=== PATIENT | male | born 1940 | race Caucasian/White ===

== ENCOUNTER 2019-09-26 10:37 | Inpatient (IN) | payer MEDICARE, MEDICAID ==
[2019-09-26] VITALS (7 sets, daily range): BP systolic 103–128; BP diastolic 49–65
[~2019-09-26] VITALS: Ht 170.2 cm; Wt 89.6 kg
[2019-09-26 10:51] LABS: BASE EXCESS ABG -2 mmol/L (-3-3); HCO3 ABG 21 mmol/L (21-28); PCO2 ABG 31 mmHg (35-46); PO2 ABG 51 mmHg (65-108); SAT O2 ABG 86 % (92-99)
[2019-09-26] MEDS ORDERED: IV NORMAL SALINE 1000ML BAG 1,000 ML IV ONE ×2 (11:00)
[2019-09-26] MEDS ORDERED: VANCOMYCIN PER PHARMACY MC ONE (11:00)
[2019-09-26] MEDS ORDERED: PIPERACILLIN/TAZOBACTAM 4.5 GM in IV NORMAL SALINE 100ML 100 ML IV ONE (11:00)
[2019-09-26] MEDS: STERILE WATER for RESP 1,000 ML BAG. INH PRN (11:05)
--- NOTE | 2019-09-26 11:07 | RAD ---
Examination: PORTABLE CHEST 1V History: soa / Comparison/Correlation: None Findings: Portable upright frontal view chest was obtained. Heart size normal. No pneumothorax. Pulmonary vasculature is borderline. Minimal blunting of the left costophrenic angle. Bony structures are unremarkable. Impression: No focal infiltrate. Minimal left pleural effusion may be present. Electronically signed by: Art Lee MD (09/26/2019 11:03 AM) [id number]
[2019-09-26 11:09] LABS: BASO % 0 % (0-3); EOS % 0 % (0-3); HEMATOCRIT 41.1 % (39.0-53.0); HEMOGLOBIN 14.2 g/dL (13.0-17.5); LYMPH # 0.6 x10^3/uL (1.0-4.8); LYMPH % 7 % (24-48); MEAN CORPUSCULAR HEMOGLOBIN 34 pg (25-35); MEAN CORPUSCULAR HGB CONC 35 g/dL (31-37); MEAN CORPUSCULAR VOLUME 98 fL (79-100); MONO # 0.6 x10^3/uL (0.0-1.1); MONO % 6 % (0-9); NEUT # 8.5 x10^3/uL (1.8-7.7); NEUT % 87 % (31-73); PLATELET COUNT 166 x10^3/uL (140-400); RED BLOOD COUNT 4.21 x10^6/uL (4.30-5.70); RED CELL DISTRIBUTION WIDTH 14.7 % (11.5-14.5); WHITE BLOOD COUNT 9.8 x10^3/uL (4.0-11.0)
[2019-09-26 11:14] LABS: CALCIUM 8.3 mg/dL (8.5-10.1); CREATININE 1.7 mg/dL (0.7-1.3); GFR 39.1; POTASSIUM 4.1 mmol/L (3.5-5.1)
[2019-09-26 11:15] LABS: BILIRUBIN,URINE NEGATIVE (NEG); CLARITY,URINE CLEAR; COLOR,URINE YELLOW; NITRITE,URINE NEGATIVE (NEG); PH,URINE 5.5 (<5.0-8.0); PROTEIN,URINE 100 mg/dL (NEG-TRACE); UROBILINOGEN,URINE 0.2 mg/dL (0.2 mg/dL)
[2019-09-26 11:19] LABS: FIO2 ABG 100
--- NOTE | 2019-09-26 11:28 | PHYS DOC ---
Past Medical History Past Medical History: Anxiety, Dementia, GERD, Hypertension, Other Additional Past Medical Histor: COVID-19, [place] Past Surgical History: No Surgical History Smoking Status: Unknown if ever smoked Alcohol Use: None General Adult EDM: Chief Complaint: SHORTNESS OF BREATH HPI: HPI: 79-year-old male past medical history significant for dementia, GERD, hypertension, [facility] with concern for hypoxia and decreased alertness. EMS reports patient was saturating in the low 80s on room air on arrival. Patient 82% upon ED arrival. Patient is awake, alert and responding to commands. Patient reports cough and nausea. Review of systems: Denies associated fever, chills, sore throat, dyspnea, chest pain, headache, neck stiffness, rash, leg swelling, abdominal pain, or diaphoresis. Heart Score: Risk Factors: Risk Factors: DM, Current or recent (<one month) smoker, HTN, HLP, family history of CAD, obesity. Risk Scores: Score 0 - 3: 2.5% MACE over next 6 weeks - Discharge Home Score 4 - 6: 20.3% MACE over next 6 weeks - Admit for Clinical Observation Score 7 - 10: 72.7% MACE over next 6 weeks - Early Invasive Strategies Current Medications: Current Medications Medications (Trade) Dose Ordered Sig/Coleman Start Time Stop Time Status Last Admin Dose Admin Piperacillin Sod/ Tazobactam Sod 4.5 gm/Sodium Chloride 100 ml @ 200 mls/hr 1X ONCE 09/26/19 11:00 09/26/19 11:29 09/26/19 11:03 200 MLS/HR Sodium Chloride 1,000 ml @ 1,000 mls/hr 1X ONCE 09/26/19 11:00 09/26/19 11:59 09/26/19 11:03 1,000 MLS/HR Sterile Water (WATER for RESP) 1,000 ml CONT PRN 09/26/19 11:00 Vancomycin HCl (Vanco Per Pharmacy) 1 each 1X ONCE 09/26/19 11:00 09/26/19 11:01 UNV Allergies: Allergies: Allergies Coded Allergies Type Severity Reaction Last Updated Verified No Known Drug Allergies 09/26/19 No Physical Exam: PE: Constitutional: no acute distress, non-toxic appearance. [] HENT: Normocephalic, atraumatic, bilateral external ears normal, oropharynx dry, no oral exudates, nose normal. [] Eyes: EOMI, conjunctiva normal, no discharge. [] Neck: Normal range of motion, no tenderness, supple, no stridor. [] Cardiovascular:Heart rate regular rhythm, no murmur [] Lungs & Thorax: right sided diffuse rales, Abdomen: Bowel sounds normal, soft, no tenderness, no masses, no pulsatile masses. [] Skin: Warm, dry, no erythema, no rash. [] Back: No tenderness, no CVA tenderness. [] Extremities: No tenderness, no cyanosis, no clubbing, ROM intact, no edema. [] Neurologic: Alert and oriented X 3, normal motor function, normal sensory function, no focal deficits noted. [] Psychologic: Affect normal, judgement normal, mood normal. [] Current Patient Data: Labs: Laboratory Tests Test 09/26/19 10:42 09/26/19 10:49 White Blood Count 9.8 x10^3/uL (4.0-11.0) Red Blood Count 4.21 x10^6/uL (4.30-5.70) L Hemoglobin 14.2 g/dL (13.0-17.5) Hematocrit 41.1 % (39.0-53.0) Mean Corpuscular Volume 98 fL (79-100) Mean Corpuscular Hemoglobin 34 pg (25-35) Mean Corpuscular Hemoglobin Concent 35 g/dL (31-37) Red Cell Distribution Width 14.7 % (11.5-14.5) H Platelet Count 166 x10^3/uL (140-400) Neutrophils (%) (Auto) 87 % (31-73) H Lymphocytes (%) (Auto) 7 % (24-48) L Monocytes (%) (Auto) 6 % (0-9) Eosinophils (%) (Auto) 0 % (0-3) Basophils (%) (Auto) 0 % (0-3) Neutrophils # (Auto) 8.5 x10^3/uL (1.8-7.7) H Lymphocytes # (Auto) 0.6 x10^3/uL (1.0-4.8) L Monocytes # (Auto) 0.6 x10^3/uL (0.0-1.1) Eosinophils # (Auto) 0.0 x10^3/uL (0.0-0.7) Basophils # (Auto) 0.0 x10^3/uL (0.0-0.2) Platelet Estimate Pending Sodium Level 143 mmol/L (136-145) Potassium Level 4.1 mmol/L (3.5-5.1) Chloride Level 107 mmol/L (98-107) Carbon Dioxide Level 24 mmol/L (21-32) Anion Gap 12 (6-14) Blood Urea Nitrogen 47 mg/dL (8-26) H Creatinine 1.7 mg/dL (0.7-1.3) H Estimated GFR (Cockcroft-Gault) 39.1 BUN/Creatinine Ratio 28 (6-20) H Glucose Level 152 mg/dL (70-99) H Lactic Acid Level 2.1 mmol/L (0.4-2.0) H Calcium Level 8.3 mg/dL (8.5-10.1) L Magnesium Level Pending Total Bilirubin Pending Aspartate Amino Transferase (AST) Pending Alanine Aminotransferase (ALT) Pending Alkaline Phosphatase Pending Creatine Kinase Pending Troponin I Quantitative 0.037 ng/mL (0.000-0.055) Total Protein Pending Albumin Pending Albumin/Globulin Ratio Pending O2 Saturation 86 % (92-99) L Arterial Blood pH 7.44 (7.35-7.45) Arterial Blood pCO2 at Patient Temp 31 mmHg (35-46) L Arterial Blood pO2 at Patient Temp 51 mmHg (65-108) L Arterial Blood HCO3 21 mmol/L (21-28) Arterial Blood Base Excess -2 mmol/L (-3-3) FiO2 100 Laboratory Tests 09/26/19 10:42 Laboratory Tests 09/26/19 10:42 Vital Signs: Vital Signs Date Time Temp Pulse Resp B/P (MAP) Pulse Ox O2 Delivery O2 Flow Rate FiO2 09/26/19 10:40 100.5 108 30 109/77 (88) 86 NonRebreather Mask 15.0 100.5 EKG: EKG: Sinus rhythm at 96 bpm, no axis deviation, normal intervals, T wave inversion lead III, no ST elevations or ST depressions Radiology/Procedures: Radiology/Procedures: IMAGING REPORT Signed PATIENT: BUZZ JANSEN ACCOUNT: [id number] : 1940 LOCATION: ER AGE: 79 SEX: M EXAM STATUS: REG ER ORD. PHYSICIAN: TIM PAULINO DO REASON: soa PROCEDURE: PORTABLE CHEST 1V Examination: PORTABLE CHEST 1V History: soa / Comparison/Correlation: None Findings: Portable upright frontal view chest was obtained. Heart size normal. No pneumothorax. Pulmonary vasculature is borderline. Minimal blunting of the left costophrenic angle. Bony structures are unremarkable. Impression: No focal infiltrate. Minimal left pleural effusion may be present. Electronically signed by: Art Jennings MD (09/26/2019 11:03 AM) [id number] DICTATED and SIGNED BY: ART JENNINGS MD DATE: 09/26/19 1103 IMAGING REPORT Signed PATIENT: BUZZ JANSEN ACCOUNT: [id number] : 1940 LOCATION: ER AGE: 79 SEX: M EXAM STATUS: REG ER ORD. PHYSICIAN: TIM PAULINO DO REASON: hypoxia, cough PROCEDURE: CT ANGIOGRAPHY CHEST Examination: CT ANGIOGRAPHY CHEST History: Reason: hypoxia, cough / Spl. Instructions: INJ 90ML OMNI 350 WILL HYDRATE PER RAD / History: Comparison/Correlation: 09/26/2019 Portable Chest X-ray Exam Findings: Axial images of the chest were obtained following IV contrast according to pulmonary arteriography protocol. Dense consolidation is present at the posterior right lung base. Diffuse interstitial thickening and groundglass infiltrates of the lower lobes, lingula, along the superior aspect of the minor fissure and involving the posterior aspect of the upper lobes noted. Diffuse emphysematous involvement of the lung brandt is noted. Bronchial wall thickening involving the right lower lung field region which may represent bronchitis is noted diffusely. An large left lower paratracheal lymph node measuring up to 1.1 cm. Nonenlarged superior mediastinal lymph nodes also are seen. Enlarged right hilar lymph node measures up to 1.2 cm in short axis diameter. Mildly enlarged subcarinal lymph nodes are also present. Pulmonary arterial vasculature is normal with no thromboembolic disease although evaluation is limited in the right lower lung field region of consolidation. Small hiatal hernia is present. Calculus the gallbladder neck measuring up to 1 cm diameter is present. No biliary dilatation. Bilateral upper pole renal cysts are present. No findings to suggest need for follow up identified. Cysts involve the liver primarily within the left hepatic lobe without suspicious features. Visualized aorta is unremarkable. Bony structures unremarkable for the patient's age. Impression: Right posterior lower lung field consolidation. Extensive interstitial, groundglass infiltrates brandt. Enlarged right mediastinal and right hilar lymph nodes. Correlate for underlying infectious process. Follow-up to resolution is recommended to exclude underlying neoplastic etiology. Calculus at the gallbladder neck. Small hiatal hernia. PQRS Compliance Statement: One or more of the following individualized dose reduction techniques were utilized for this examination: 1. Automated exposure control 2. Adjustment of the mA and/or kV according to patient size 3. Use of iterative reconstruction technique Electronically signed by: Art Jennings MD (09/26/2019 12:33 PM) [id number] DICTATED and SIGNED BY: ART JENNINGS MD DATE: 09/26/19 1233 Impression: Concern for severe sepsis secondary to hospital-acquired pneumonia (right sided posterior infiltrate on CTA) in the setting of COVID-[address] Angio of the chest showed no central pulmonary emboli. Patient was placed on 100% high flow nasal cannula at 40L on arrival and is sleeping comfortably at time of admission (awakes easily w/normal mental status). Initial blood gas showed acute hypoxic respiratory failure with a PO2 of 50. Will need to be repeated, with low threshold for intubation. Will admit for further medical management. Patient agrees with this plan. Course & Med Decision Making: Course & Med Decision Making Pertinent Labs and Imaging studies reviewed. (See chart for details) [] Dragon Disclaimer: Dragon Disclaimer: This electronic medical record was generated, in whole or in part, using a voice recognition dictation system. Departure Departure Impression: Primary Impression: Severe sepsis Additional Impressions: Acute respiratory failure with hypoxia Renal insufficiency HCAP (healthcare-associated pneumonia) COVID-19 Disposition: ADMITTED INPATIENT Admitting Physician: KOKO (Dr. Freeman) Condition: CRITICAL Referrals: MIN ROJAS MD (PCP) Justicifation of Admission Dx: Justifications for Admission: Justification of Admission Dx: Yes Aspiration Pneumonia: Hypoxemia TIM PAULINO DO Sep 26, 2019 11:28
[2019-09-26 11:29] LABS: ALBUMIN 2.8 g/dL (3.4-5.0); ALBUMIN/GLOBULIN RATIO 0.7 (1.0-1.7); MAGNESIUM 2.3 mg/dL (1.8-2.4); TOTAL BILIRUBIN 0.6 mg/dL (0.2-1.0); TOTAL PROTEIN 6.8 g/dL (6.4-8.2)
[2019-09-26] MEDS ORDERED: VANCOMYCIN 2 GM in IV NORMAL SALINE 500ML BAG 500 ML IV ONE (11:30)
[2019-09-26 11:40] LABS: BACTERIA,URINE FEW /HPF (0-FEW)
[2019-09-26 11:40] LABS: PROTHROMBIN TIME PATIENT 13.3 SEC (11.7-14.0)
[2019-09-26 11:41] LABS: AMORPHOUS SEDIMENT,UR PRESENT /HPF; GRANULAR CASTS,URINE FEW /HPF; HYALINE CASTS, URINE MODERATE /HPF; SQUAMOUS EPITHELIAL CELL,UR FEW /LPF
[2019-09-26] MEDS ORDERED: IOHEXOL 350 MG/ML 100 ML VIAL. IV ONE (11:45)
[2019-09-26] MEDS ORDERED: CONTRAST GIVEN. MC PRN (11:45)
--- NOTE | 2019-09-26 12:36 | RAD ---
Examination: CT ANGIOGRAPHY CHEST History: Reason: hypoxia, cough / Spl. Instructions: INJ 90ML OMNI 350 WILL HYDRATE PER RAD / History: Comparison/Correlation: 09/26/2019 Portable Chest X-ray Exam Findings: Axial images of the chest were obtained following IV contrast according to pulmonary arteriography protocol. Dense consolidation is present at the posterior right lung base. Diffuse interstitial thickening and groundglass infiltrates of the lower lobes, lingula, along the superior aspect of the minor fissure and involving the posterior aspect of the upper lobes noted. Diffuse emphysematous involvement of the lung brandt is noted. Bronchial wall thickening involving the right lower lung field region which may represent bronchitis is noted diffusely. An large left lower paratracheal lymph node measuring up to 1.1 cm. Nonenlarged superior mediastinal lymph nodes also are seen. Enlarged right hilar lymph node measures up to 1.2 cm in short axis diameter. Mildly enlarged subcarinal lymph nodes are also present. Pulmonary arterial vasculature is normal with no thromboembolic disease although evaluation is limited in the right lower lung field region of consolidation. Small hiatal hernia is present. Calculus the gallbladder neck measuring up to 1 cm diameter is present. No biliary dilatation. Bilateral upper pole renal cysts are present. No findings to suggest need for follow up identified. Cysts involve the liver primarily within the left hepatic lobe without suspicious features. Visualized aorta is unremarkable. Bony structures unremarkable for the patient's age. Impression: Right posterior lower lung field consolidation. Extensive interstitial, groundglass infiltrates brandt. Enlarged right mediastinal and right hilar lymph nodes. Correlate for underlying infectious process. Follow-up to resolution is recommended to exclude underlying neoplastic etiology. Calculus at the gallbladder neck. Small hiatal hernia. PQRS Compliance Statement: One or more of the following individualized dose reduction techniques were utilized for this examination: 1. Automated exposure control 2. Adjustment of the mA and/or kV according to patient size 3. Use of iterative reconstruction technique Electronically signed by: Art Lee MD (09/26/2019 12:33 PM) [id number]
[2019-09-26 13:09] LABS: % BANDS 11 % (0-9); % LYMPHS 7 % (24-48); % MONOS 1 % (0-10); % SEGS 81 % (35-66); PLT ESTIMATE ADEQUATE (ADEQUATE)
[2019-09-26] MEDS: ENOXAPARIN 40 MG/0.4 ML SYRINGE. SQ SCH (15:00)
[2019-09-26] MEDS ORDERED: ACET500C4 PO (15:54)
[2019-09-26] MEDS ORDERED: IBUP-1027 PO (15:54)
--- NOTE | 2019-09-26 15:54 | EKG ---
[facility] [address] [place] [address] Test Date: 2019-09-26 Test Time: 10:44:00 Pat Name: BUZZ JANSEN Department: Room: Gender: M Hide Salter: BERTHA : 1940 Requested By: TIM PAULINO Order Number: [id number] Reading MD: Measurements Intervals [place] Rate: 96 P: -2 RI: 156 QRS: 22 QRSD: 94 T: 16 QT: 340 QTc: 430 Interpretive Statements SINUS RHYTHM NO SPECIFIC ECG ABNORMALITIES RI6.01 No previous ECG available for comparison
[2019-09-26] MEDS ORDERED: POLY15DR27 EACHEYE (15:55)
--- NOTE | 2019-09-26 17:28 | PDOC1 ---
History and Physical Date of Admission Date of Admission DATE: 09/26/19 TIME: 17:25 Source Source: Chart review, Patient History of Present Illness History of Present Illness Mr. Raines, is a 79-year-old male past medical history significant for dementia, GERD, hypertension, presents to the ED from [facility]. He had been known COVID unit positive, and was brought to the ER when he was lethargic and less responsive. THen found to be hypoxia and is respiratory distress. EMS reports patient was saturating in the low 80s on room air on arrival. Patient 82% upon ED arrival. Patient is awake, alert and responding to commands. Patient reports cough and nausea. Past Medical History Cardiovascular: HTN CENTRAL NERVOUS SYSTEM: Dementia GI: GERD Renal/: No pertinent hx Endocrine: No pertinent hx Dermatology: No pertinent hx Past Surgical History Past Surgical History: No pertinent history Family History Family History: Alzheimer's Disease Social History Smoke: No ALCOHOL: none Drugs: None Current Problem List Problem List Problems Medical Problems: (1) Acute respiratory failure with hypoxia Status: Acute (2) COVID-19 Status: Acute (3) HCAP (healthcare-associated pneumonia) Status: Acute (4) Renal insufficiency Status: Acute (5) Severe sepsis Status: Acute Current Medications Current Medications Current Medications Piperacillin Sod/ Tazobactam Sod 4.5 gm/Sodium Chloride 100 ml @ 200 mls/hr 1X ONCE IV Last administered on 09/26/19at 11:03; Start 09/26/19 at 11:00; Stop 09/26/19 at 11:29; Status DC Vancomycin HCl (Vanco Per Pharmacy) 1 each 1X ONCE MC ; Start 09/26/19 at 11:00; Stop 09/26/19 at 15:59; Status DC Sodium Chloride 1,000 ml @ 1,000 mls/hr 1X ONCE IV Last administered on 09/26/19at 11:02; Start 09/26/19 at 11:00; Stop 09/26/19 at 11:59; Status DC Sodium Chloride 1,000 ml @ 1,000 mls/hr 1X ONCE IV Last administered on 09/26/19at 11:03; Start 09/26/19 at 11:00; Stop 09/26/19 at 11:59; Status DC Sterile Water (WATER for RESP) 1,000 ml CONT PRN INH VIA VAPOTHERM DEVICE Last administered on 09/26/19at 11:05; Start 09/26/19 at 11:00 Vancomycin HCl 2 gm/Sodium Chloride 500 ml @ 250 mls/hr 1X ONCE IV Last administered on 09/26/19at 11:47; Start 09/26/19 at 11:30; Stop 09/26/19 at 13:29; Status DC Iohexol (Omnipaque 350 Mg/ml) 90 ml 1X ONCE IV Last administered on 09/26/19at 11:45; Start 09/26/19 at 11:45; Stop 09/26/19 at 11:46; Status DC Info (CONTRAST GIVEN -- Rx MONITORING) 1 each PRN DAILY PRN MC SEE COMMENTS; Start 09/26/19 at 11:45; Stop 09/28/19 at 11:44 Enoxaparin Sodium (Lovenox Per Pharmacy Prophylaxis Dosing) 1 each PRN DAILY PRN MC SEE COMMENTS; Start 09/26/19 at 14:30 Enoxaparin Sodium (Lovenox 40mg Syringe) 40 mg BID SQ ; Start 09/26/19 at 15:00 Active Scripts Active Reported Artificial Tears (Polyvinyl Alcohol) 15 Ml Drops 2 Drop EACHEYE QID 20 Days Ibuprofen 400 Mg Tablet 400 Mg PO PRN Q6HRS PRN Tylophen (Acetaminophen) 500 Mg Capsule 500 Mg PO PRN Q6-8HRS Allergies Allergies: Coded Allergies: No Known Drug Allergies (Unverified , 09/26/19) ROS Review of System Denies associated fever, chills, sore throat, dyspnea, chest pain, headache, neck stiffness, rash, leg swelling, abdominal pain, or diaphoresis. General: YES: Fatigue, Malaise; No: Chills, Night Sweats, Appetite, Other PSYCHOLOGICAL ROS: No: Anxiety, Behavioral Disorder, Concentration difficultie, Decreased libido, Depression, Disorientation, Hallucinations, Hostility, Irritablity, Memory difficulties, Mood Swings, Obsessive thoughts, Physical abuse, Sexual abuse, Sleep disturbances, Suicidal ideation, Other Eyes: No Blurry vision, No Decreased vision, No Double vision, No Dry eyes, No Excessive tearing, No Eye Pain, No Itchy Eyes, No Loss of vision, No Photophobia, No Scotomata, No Uses contacts, No Uses glasses, No Other Respiratory: YES: Shortness of breath, Tachypnea; No: Cough, Hemoptysis, Orthopnea, Pleuritic Pain, SOB with excertion, Sputum Changes, Stridor, Wheezing, Other Cardiovascular: No Chest Pain, No Palpitations, No Orthopnea, No Paroxysmal Noc. Dyspnea, No Edema, No Lt Headedness, No Other Gastrointestinal: No Nausea, No Vomiting, No Abdominal Pain, No Diarrhea, No Constipation, No Melena, No Hematochezia, No Other Genitourinary: No Dysuria, No Frequency, No Incontinence, No Hematuria, No Retention, No Discharge, No Urgency, No Pain, No Flank Pain, No Other, No , No , No , No , No , No , No Musculoskeletal: No Gait Disturbance, No Joint Pain, No Joint Stiffness, No Joint Swelling, No Muscle Pain, No Muscular Weakness, No Pain In:, No Swelling In:, No Other Neurological: No Behavorial Changes, No Bowel/Bladder ControlChng, No Confusion , No Dizziness, No Gait Disturbance, No Headaches, No Impaired Coord/balance, No Memory Loss, No Numbness/Tingling, No Seizures, No Speech Problems, No Tremors, No Visual Changes, No Weakness, No Other Skin: No Dry Skin, No Eczema, No Hair Changes, No Lumps, No Mole Changes, No Mottling, No Nail Changes, No Pruritus, No Rash, No Skin Lesion Changes, No Other, No Acne Physical Exam General: Alert, Cooperative, No acute distress, Other (poorly oriented, ) Lungs: Other (rales, rhonchi, coarse, ) Heart: S1S2, RRR Abdomen: Normal bowel sounds, Soft Extremities: No cyanosis, No edema, Normal pulses Skin: No rashes, No breakdown Neuro: Normal speech, Sensation intact Psych/Mental Status: Mental status NL, Mood NL Vitals Vitals Vital Signs Date Time Temp Pulse Resp B/P (MAP) Pulse Ox O2 Delivery O2 Flow Rate FiO2 09/26/19 17:00 76 88 vapotherm 40.0 09/26/19 16:13 99.0 30 99.0 Labs Labs Laboratory Tests Test 09/26/19 10:42 09/26/19 10:49 09/26/19 11:05 09/26/19 14:35 White Blood Count 9.8 x10^3/uL (4.0-11.0) Red Blood Count 4.21 x10^6/uL (4.30-5.70) Hemoglobin 14.2 g/dL (13.0-17.5) Hematocrit 41.1 % (39.0-53.0) Mean Corpuscular Volume 98 fL (79-100) Mean Corpuscular Hemoglobin 34 pg (25-35) Mean Corpuscular Hemoglobin Concent 35 g/dL (31-37) Red Cell Distribution Width 14.7 % (11.5-14.5) Platelet Count 166 x10^3/uL (140-400) Neutrophils (%) (Auto) 87 % (31-73) Lymphocytes (%) (Auto) 7 % (24-48) Monocytes (%) (Auto) 6 % (0-9) Eosinophils (%) (Auto) 0 % (0-3) Basophils (%) (Auto) 0 % (0-3) Neutrophils # (Auto) 8.5 x10^3/uL (1.8-7.7) Lymphocytes # (Auto) 0.6 x10^3/uL (1.0-4.8) Monocytes # (Auto) 0.6 x10^3/uL (0.0-1.1) Eosinophils # (Auto) 0.0 x10^3/uL (0.0-0.7) Basophils # (Auto) 0.0 x10^3/uL (0.0-0.2) Segmented Neutrophils % 81 % (35-66) Band Neutrophils % 11 % (0-9) Lymphocytes % 7 % (24-48) Monocytes % 1 % (0-10) Platelet Estimate Adequate (ADEQUATE) Prothrombin Time 13.3 SEC (11.7-14.0) Prothromb Time International Ratio 1.1 (0.8-1.1) Activated Partial Thromboplast Time 30 SEC (24-38) Sodium Level 143 mmol/L (136-145) Potassium Level 4.1 mmol/L (3.5-5.1) Chloride Level 107 mmol/L (98-107) Carbon Dioxide Level 24 mmol/L (21-32) Anion Gap 12 (6-14) Blood Urea Nitrogen 47 mg/dL (8-26) Creatinine 1.7 mg/dL (0.7-1.3) Estimated GFR (Cockcroft-Gault) 39.1 BUN/Creatinine Ratio 28 (6-20) Glucose Level 152 mg/dL (70-99) Lactic Acid Level 2.1 mmol/L (0.4-2.0) 1.6 mmol/L (0.4-2.0) Calcium Level 8.3 mg/dL (8.5-10.1) Magnesium Level 2.3 mg/dL (1.8-2.4) Total Bilirubin 0.6 mg/dL (0.2-1.0) Aspartate Amino Transf (AST/SGOT) 92 U/L (15-37) Alanine Aminotransferase (ALT/SGPT) 45 U/L (16-63) Alkaline Phosphatase 49 U/L (46-116) Creatine Kinase 1286 U/L (39-308) Troponin I Quantitative 0.037 ng/mL (0.000-0.055) Total Protein 6.8 g/dL (6.4-8.2) Albumin 2.8 g/dL (3.4-5.0) Albumin/Globulin Ratio 0.7 (1.0-1.7) O2 Saturation 86 % (92-99) Arterial Blood pH 7.44 (7.35-7.45) Arterial Blood pCO2 at Patient Temp 31 mmHg (35-46) Arterial Blood pO2 at Patient Temp 51 mmHg (65-108) Arterial Blood HCO3 21 mmol/L (21-28) Arterial Blood Base Excess -2 mmol/L (-3-3) FiO2 100 Urine Collection Type Unknown Urine Color Yellow Urine Clarity Clear Urine pH 5.5 (<5.0-8.0) Urine Specific [place] 1.020 (1.000-1.030) Urine Protein 100 mg/dL (NEG-TRACE) Urine Glucose (UA) Negative mg/dL (NEG) Urine Ketones (Stick) Trace mg/dL (NEG) Urine Blood Moderate (NEG) Urine Nitrite Negative (NEG) Urine Bilirubin Negative (NEG) Urine Urobilinogen Dipstick 0.2 mg/dL (0.2 mg/dL) Urine Leukocyte Esterase Negative (NEG) Urine RBC 11-20 /HPF (0-2) Urine WBC 1-4 /HPF (0-4) Urine Squamous Epithelial Cells Few /LPF Urine Amorphous Sediment Present /HPF Urine Bacteria Few /HPF (0-FEW) Urine Hyaline Casts Moderate /HPF Urine Granular Casts Few /HPF Urine Mucus Mod /LPF Laboratory Tests Test 09/26/19 10:42 09/26/19 10:49 09/26/19 11:05 09/26/19 14:35 White Blood Count 9.8 x10^3/uL (4.0-11.0) Red Blood Count 4.21 x10^6/uL (4.30-5.70) Hemoglobin 14.2 g/dL (13.0-17.5) Hematocrit 41.1 % (39.0-53.0) Mean Corpuscular Volume 98 fL (79-100) Mean Corpuscular Hemoglobin 34 pg (25-35) Mean Corpuscular Hemoglobin Concent 35 g/dL (31-37) Red Cell Distribution Width 14.7 % (11.5-14.5) Platelet Count 166 x10^3/uL (140-400) Neutrophils (%) (Auto) 87 % (31-73) Lymphocytes (%) (Auto) 7 % (24-48) Monocytes (%) (Auto) 6 % (0-9) Eosinophils (%) (Auto) 0 % (0-3) Basophils (%) (Auto) 0 % (0-3) Neutrophils # (Auto) 8.5 x10^3/uL (1.8-7.7) Lymphocytes # (Auto) 0.6 x10^3/uL (1.0-4.8) Monocytes # (Auto) 0.6 x10^3/uL (0.0-1.1) Eosinophils # (Auto) 0.0 x10^3/uL (0.0-0.7) Basophils # (Auto) 0.0 x10^3/uL (0.0-0.2) Segmented Neutrophils % 81 % (35-66) Band Neutrophils % 11 % (0-9) Lymphocytes % 7 % (24-48) Monocytes % 1 % (0-10) Platelet Estimate Adequate (ADEQUATE) Prothrombin Time 13.3 SEC (11.7-14.0) Prothromb Time International Ratio 1.1 (0.8-1.1) Activated Partial Thromboplast Time 30 SEC (24-38) Sodium Level 143 mmol/L (136-145) Potassium Level 4.1 mmol/L (3.5-5.1) Chloride Level 107 mmol/L (98-107) Carbon Dioxide Level 24 mmol/L (21-32) Anion Gap 12 (6-14) Blood Urea Nitrogen 47 mg/dL (8-26) Creatinine 1.7 mg/dL (0.7-1.3) Estimated GFR (Cockcroft-Gault) 39.1 BUN/Creatinine Ratio 28 (6-20) Glucose Level 152 mg/dL (70-99) Lactic Acid Level 2.1 mmol/L (0.4-2.0) 1.6 mmol/L (0.4-2.0) Calcium Level 8.3 mg/dL (8.5-10.1) Magnesium Level 2.3 mg/dL (1.8-2.4) Total Bilirubin 0.6 mg/dL (0.2-1.0) Aspartate Amino Transf (AST/SGOT) 92 U/L (15-37) Alanine Aminotransferase (ALT/SGPT) 45 U/L (16-63) Alkaline Phosphatase 49 U/L (46-116) Creatine Kinase 1286 U/L (39-308) Troponin I Quantitative 0.037 ng/mL (0.000-0.055) Total Protein 6.8 g/dL (6.4-8.2) Albumin 2.8 g/dL (3.4-5.0) Albumin/Globulin Ratio 0.7 (1.0-1.7) O2 Saturation 86 % (92-99) Arterial Blood pH 7.44 (7.35-7.45) Arterial Blood pCO2 at Patient Temp 31 mmHg (35-46) Arterial Blood pO2 at Patient Temp 51 mmHg (65-108) Arterial Blood HCO3 21 mmol/L (21-28) Arterial Blood Base Excess -2 mmol/L (-3-3) FiO2 100 Urine Collection Type Unknown Urine Color Yellow Urine Clarity Clear Urine pH 5.5 (<5.0-8.0) Urine Specific [place] 1.020 (1.000-1.030) Urine Protein 100 mg/dL (NEG-TRACE) Urine Glucose (UA) Negative mg/dL (NEG) Urine Ketones (Stick) Trace mg/dL (NEG) Urine Blood Moderate (NEG) Urine Nitrite Negative (NEG) Urine Bilirubin Negative (NEG) Urine Urobilinogen Dipstick 0.2 mg/dL (0.2 mg/dL) Urine Leukocyte Esterase Negative (NEG) Urine RBC 11-20 /HPF (0-2) Urine WBC 1-4 /HPF (0-4) Urine Squamous Epithelial Cells Few /LPF Urine Amorphous Sediment Present /HPF Urine Bacteria Few /HPF (0-FEW) Urine Hyaline Casts Moderate /HPF Urine Granular Casts Few /HPF Urine Mucus Mod /LPF VTE Prophylaxis Ordered VTE Prophylaxis Devices: No VTE Pharmacological Prophylaxi: Yes Assessment/Plan Assessment/Plan COVID -19 pos acute hypoxic respiratory faiulre severe sepsis pneumoniits, broad antibiotics, pneumonia and sepsis, acute renal failure, vasomotor, and acute rhabdomyolysis, admit demenita, admit to ICU, 38 minutes Justicifation of Admission Dx: Justifications for Admission: Justification of Admission Dx: Yes Aspiration Pneumonia: Hypoxemia RYANNE SULLIVAN MD Sep 26, 2019 17:28
[2019-09-26] MEDS ORDERED: PIP/TAZO PER PHARMACY MC PRN (17:30)
[2019-09-26] MEDS: IV NORMAL SALINE 1000ML BAG 1,000 ML IV SCH (17:30)
[2019-09-26] MEDS: VANCOMYCIN PER PHARMACY MC PRN (17:34)
--- NOTE | 2019-09-26 17:36 | NUR ---
Pharmacy Vancomycin Dosing Note S:Consulted to monitor and dose vancomycin started 09/26/19. O:BUZZ JANSEN is a 79 year old M with HCAP. Height: 5 feet, 7 inches Weight: 89.3 kg [place] Body Weight: 66.10 Adjusted Body Weight: 75.38 Dosing Weight: Actual Other Antibiotics: zosyn 3.375 gm q6hrs LABS: Last BUN: 47 Last Creatinine: 1.7 Creatinine Clearance: 38 mL/min Last WBC: 9.8 Last Procalcitonin: -- Tmax (past 24 hours): 100.5 Microbiology: 09/25: BLOOD CX PENDING I/O: -- Drug Levels: Last dose given 09/26/19 at 1147 Vancomycin Dosing: Loading Dose: 2000 mg x1 Dosing Weight: Actual Target Trough: 15-20 A: Based on: patient's age, weight and renal function. P: 1. Begin Vancomycin 1250 mg IV q24h after initial vancomycin 2 gm loading dose. 2. Follow up Trough level on 09/28/19 at 1130 3. Pharmacy will continue to monitor, follow and adjust therapy as needed. OUMOU LYMNA RPH, 09/26/19 [id number]
[2019-09-26] MEDS: PIPERACILLIN/TAZOBACTAM 3.375 GM in IV NORMAL SALINE 50ML 50 ML IV SCH (18:00)
[2019-09-26] MEDS ORDERED: NON FORMULARY ITEM 1 EA in IV NORMAL SALINE 250ML 250 ML IV ONE (21:00)
[2019-09-26] MEDS: methylPREDNISolone SOD SUCC PF 40 MG/ML VIAL. IV SCH (21:50)
[2019-09-26] MEDS: BENZONATATE 100 MG CAPSULE. PO SCH (21:51)
[2019-09-27] VITALS (26 sets, daily range): BP systolic 85–114; BP diastolic 44–69
[2019-09-27] MEDS: PIPERACILLIN/TAZOBACTAM 3.375 GM in IV NORMAL SALINE 50ML 50 ML IV SCH ×4 (00:29→17:38)
[2019-09-27 04:24] LABS: BASO % 0 % (0-3); EOS % 0 % (0-3); HEMATOCRIT 36.5 % (39.0-53.0); HEMOGLOBIN 12.4 g/dL (13.0-17.5); LYMPH # 0.3 x10^3/uL (1.0-4.8); LYMPH % 4 % (24-48); MEAN CORPUSCULAR HEMOGLOBIN 33 pg (25-35); MEAN CORPUSCULAR HGB CONC 34 g/dL (31-37); MEAN CORPUSCULAR VOLUME 98 fL (79-100); MONO # 0.3 x10^3/uL (0.0-1.1); MONO % 4 % (0-9); NEUT # 7.1 x10^3/uL (1.8-7.7); NEUT % 92 % (31-73); PLATELET COUNT 154 x10^3/uL (140-400); RED BLOOD COUNT 3.71 x10^6/uL (4.30-5.70); RED CELL DISTRIBUTION WIDTH 15.1 % (11.5-14.5); WHITE BLOOD COUNT 7.7 x10^3/uL (4.0-11.0)
[2019-09-27 04:42] LABS: ALBUMIN 2.1 g/dL (3.4-5.0); ALBUMIN/GLOBULIN RATIO 0.6 (1.0-1.7); CALCIUM 7.6 mg/dL (8.5-10.1); CREATININE 1.3 mg/dL (0.7-1.3); GFR 53.3; POTASSIUM 3.7 mmol/L (3.5-5.1); TOTAL BILIRUBIN 0.4 mg/dL (0.2-1.0); TOTAL PROTEIN 5.6 g/dL (6.4-8.2)
[2019-09-27] MEDS: methylPREDNISolone SOD SUCC PF 40 MG/ML VIAL. IV SCH ×3 (05:18→21:50)
[2019-09-27] MEDS: IV NORMAL SALINE 1000ML BAG 1,000 ML IV SCH ×3 (05:18→19:45)
[2019-09-27] MEDS: ASCORBIC ACID 500 MG TABLET PO SCH (08:16)
[2019-09-27] MEDS: ENOXAPARIN 40 MG/0.4 ML SYRINGE. SQ SCH ×2 (08:16→21:49)
[2019-09-27] MEDS: BENZONATATE 100 MG CAPSULE. PO SCH ×3 (08:16→21:50)
[2019-09-27] MEDS: ZINC SULFATE 220 MG CAPSULE. PO SCH (08:16)
[2019-09-27] MEDS: CHOLECALCIFEROL (VITAMIN D3) 5,000 UNIT CAPSULE PO SCH (08:16)
[2019-09-27] MEDS: VITAMIN B12,B9,B6 COMPLEX 1 TABLET. PO SCH (08:18)
[2019-09-27] MEDS: STERILE WATER for RESP 1,000 ML BAG. INH PRN ×2 (08:37→20:29)
[2019-09-27] MEDS: NON FORMULARY ITEM 1 EA in IV NORMAL SALINE 250ML 250 ML IV SCH (09:20)
--- NOTE | 2019-09-27 10:38 | NUR ---
SS following for discharge planning. SS reviewed pt chart and discussed with pt RN. Pt is LTC resident from [facility], ; fax [phone]. Pt was on COVID19 positive unit at facility. Pt on Vapotherm and IV Vancomycin and Zosyn. SS will continue to follow for discharge planning.
[2019-09-27] MEDS: VANCOMYCIN 1.25 GM in IV NORMAL SALINE 250ML 250 ML IV SCH (12:32)
[2019-09-27 13:26] LABS: BASE EXCESS ABG -8 mmol/L (-3-3); HCO3 ABG 15 mmol/L (21-28); PCO2 ABG 23 mmHg (35-46); PO2 ABG 67 mmHg (65-108); SAT O2 ABG 92 % (92-99)
[2019-09-27] MEDS ORDERED: DEXTROSE 50% 25 GM / 50ML DISP.SYRIN. IV PRN (13:30)
[2019-09-27 13:39] LABS: FIO2 ABG 100
[2019-09-27] MEDS: INSULIN LISPRO 300 UNITS/3 ML VIAL. SQ SCH ×2 (14:00→17:00)
--- NOTE | 2019-09-27 14:21 | PDOC ---
PULMONARY PROGRESS NOTES Vitals Vital Signs Date Time Temp Pulse Resp B/P (MAP) Pulse Ox O2 Delivery O2 Flow Rate FiO2 09/27/19 14:00 78 22 104/67 (79) 89 vapotherm 40.0 09/27/19 12:00 97.7 97.7 Labs Laboratory Tests Test 09/26/19 10:42 09/26/19 10:49 09/26/19 11:05 09/26/19 11:50 White Blood Count 9.8 x10^3/uL (4.0-11.0) Red Blood Count 4.21 x10^6/uL (4.30-5.70) Hemoglobin 14.2 g/dL (13.0-17.5) Hematocrit 41.1 % (39.0-53.0) Mean Corpuscular Volume 98 fL (79-100) Mean Corpuscular Hemoglobin 34 pg (25-35) Mean Corpuscular Hemoglobin Concent 35 g/dL (31-37) Red Cell Distribution Width 14.7 % (11.5-14.5) Platelet Count 166 x10^3/uL (140-400) Neutrophils (%) (Auto) 87 % (31-73) Lymphocytes (%) (Auto) 7 % (24-48) Monocytes (%) (Auto) 6 % (0-9) Eosinophils (%) (Auto) 0 % (0-3) Basophils (%) (Auto) 0 % (0-3) Neutrophils # (Auto) 8.5 x10^3/uL (1.8-7.7) Lymphocytes # (Auto) 0.6 x10^3/uL (1.0-4.8) Monocytes # (Auto) 0.6 x10^3/uL (0.0-1.1) Eosinophils # (Auto) 0.0 x10^3/uL (0.0-0.7) Basophils # (Auto) 0.0 x10^3/uL (0.0-0.2) Segmented Neutrophils % 81 % (35-66) Band Neutrophils % 11 % (0-9) Lymphocytes % 7 % (24-48) Monocytes % 1 % (0-10) Platelet Estimate Adequate (ADEQUATE) Prothrombin Time 13.3 SEC (11.7-14.0) Prothromb Time International Ratio 1.1 (0.8-1.1) Activated Partial Thromboplast Time 30 SEC (24-38) Sodium Level 143 mmol/L (136-145) Potassium Level 4.1 mmol/L (3.5-5.1) Chloride Level 107 mmol/L (98-107) Carbon Dioxide Level 24 mmol/L (21-32) Anion Gap 12 (6-14) Blood Urea Nitrogen 47 mg/dL (8-26) Creatinine 1.7 mg/dL (0.7-1.3) Estimated GFR (Cockcroft-Gault) 39.1 BUN/Creatinine Ratio 28 (6-20) Glucose Level 152 mg/dL (70-99) Lactic Acid Level 2.1 mmol/L (0.4-2.0) Calcium Level 8.3 mg/dL (8.5-10.1) Magnesium Level 2.3 mg/dL (1.8-2.4) Total Bilirubin 0.6 mg/dL (0.2-1.0) Aspartate Amino Transf (AST/SGOT) 92 U/L (15-37) Alanine Aminotransferase (ALT/SGPT) 45 U/L (16-63) Alkaline Phosphatase 49 U/L (46-116) Creatine Kinase 1286 U/L (39-308) Troponin I Quantitative 0.037 ng/mL (0.000-0.055) Total Protein 6.8 g/dL (6.4-8.2) Albumin 2.8 g/dL (3.4-5.0) Albumin/Globulin Ratio 0.7 (1.0-1.7) O2 Saturation 86 % (92-99) Arterial Blood pH 7.44 (7.35-7.45) Arterial Blood pCO2 at Patient Temp 31 mmHg (35-46) Arterial Blood pO2 at Patient Temp 51 mmHg (65-108) Arterial Blood HCO3 21 mmol/L (21-28) Arterial Blood Base Excess -2 mmol/L (-3-3) FiO2 100 Urine Collection Type Unknown Urine Color Yellow Urine Clarity Clear Urine pH 5.5 (<5.0-8.0) Urine Specific [place] 1.020 (1.000-1.030) Urine Protein 100 mg/dL (NEG-TRACE) Urine Glucose (UA) Negative mg/dL (NEG) Urine Ketones (Stick) Trace mg/dL (NEG) Urine Blood Moderate (NEG) Urine Nitrite Negative (NEG) Urine Bilirubin Negative (NEG) Urine Urobilinogen Dipstick 0.2 mg/dL (0.2 mg/dL) Urine Leukocyte Esterase Negative (NEG) Urine RBC 11-20 /HPF (0-2) Urine WBC 1-4 /HPF (0-4) Urine Squamous Epithelial Cells Few /LPF Urine Amorphous Sediment Present /HPF Urine Bacteria Few /HPF (0-FEW) Urine Hyaline Casts Moderate /HPF Urine Granular Casts Few /HPF Urine Mucus Mod /LPF Coronavirus (COVID-19)(PCR) Detected (NOT DETECT.) Test 09/26/19 14:35 09/27/19 03:45 09/27/19 13:05 Lactic Acid Level 1.6 mmol/L (0.4-2.0) White Blood Count 7.7 x10^3/uL (4.0-11.0) Red Blood Count 3.71 x10^6/uL (4.30-5.70) Hemoglobin 12.4 g/dL (13.0-17.5) Hematocrit 36.5 % (39.0-53.0) Mean Corpuscular Volume 98 fL (79-100) Mean Corpuscular Hemoglobin 33 pg (25-35) Mean Corpuscular Hemoglobin Concent 34 g/dL (31-37) Red Cell Distribution Width 15.1 % (11.5-14.5) Platelet Count 154 x10^3/uL (140-400) Neutrophils (%) (Auto) 92 % (31-73) Lymphocytes (%) (Auto) 4 % (24-48) Monocytes (%) (Auto) 4 % (0-9) Eosinophils (%) (Auto) 0 % (0-3) Basophils (%) (Auto) 0 % (0-3) Neutrophils # (Auto) 7.1 x10^3/uL (1.8-7.7) Lymphocytes # (Auto) 0.3 x10^3/uL (1.0-4.8) Monocytes # (Auto) 0.3 x10^3/uL (0.0-1.1) Eosinophils # (Auto) 0.0 x10^3/uL (0.0-0.7) Basophils # (Auto) 0.0 x10^3/uL (0.0-0.2) Sodium Level 148 mmol/L (136-145) Potassium Level 3.7 mmol/L (3.5-5.1) Chloride Level 113 mmol/L (98-107) Carbon Dioxide Level 23 mmol/L (21-32) Anion Gap 12 (6-14) Blood Urea Nitrogen 33 mg/dL (8-26) Creatinine 1.3 mg/dL (0.7-1.3) Estimated GFR (Cockcroft-Gault) 53.3 BUN/Creatinine Ratio 25 (6-20) Glucose Level 180 mg/dL (70-99) Calcium Level 7.6 mg/dL (8.5-10.1) Total Bilirubin 0.4 mg/dL (0.2-1.0) Aspartate Amino Transf (AST/SGOT) 95 U/L (15-37) Alanine Aminotransferase (ALT/SGPT) 45 U/L (16-63) Alkaline Phosphatase 42 U/L (46-116) Total Protein 5.6 g/dL (6.4-8.2) Albumin 2.1 g/dL (3.4-5.0) Albumin/Globulin Ratio 0.6 (1.0-1.7) O2 Saturation 92 % (92-99) Arterial Blood pH 7.43 (7.35-7.45) Arterial Blood pCO2 at Patient Temp 23 mmHg (35-46) Arterial Blood pO2 at Patient Temp 67 mmHg (65-108) Arterial Blood HCO3 15 mmol/L (21-28) Arterial Blood Base Excess -8 mmol/L (-3-3) FiO2 100 Laboratory Tests Test 09/26/19 14:35 09/27/19 03:45 09/27/19 13:05 Lactic Acid Level 1.6 mmol/L (0.4-2.0) White Blood Count 7.7 x10^3/uL (4.0-11.0) Red Blood Count 3.71 x10^6/uL (4.30-5.70) Hemoglobin 12.4 g/dL (13.0-17.5) Hematocrit 36.5 % (39.0-53.0) Mean Corpuscular Volume 98 fL (79-100) Mean Corpuscular Hemoglobin 33 pg (25-35) Mean Corpuscular Hemoglobin Concent 34 g/dL (31-37) Red Cell Distribution Width 15.1 % (11.5-14.5) Platelet Count 154 x10^3/uL (140-400) Neutrophils (%) (Auto) 92 % (31-73) Lymphocytes (%) (Auto) 4 % (24-48) Monocytes (%) (Auto) 4 % (0-9) Eosinophils (%) (Auto) 0 % (0-3) Basophils (%) (Auto) 0 % (0-3) Neutrophils # (Auto) 7.1 x10^3/uL (1.8-7.7) Lymphocytes # (Auto) 0.3 x10^3/uL (1.0-4.8) Monocytes # (Auto) 0.3 x10^3/uL (0.0-1.1) Eosinophils # (Auto) 0.0 x10^3/uL (0.0-0.7) Basophils # (Auto) 0.0 x10^3/uL (0.0-0.2) Sodium Level 148 mmol/L (136-145) Potassium Level 3.7 mmol/L (3.5-5.1) Chloride Level 113 mmol/L (98-107) Carbon Dioxide Level 23 mmol/L (21-32) Anion Gap 12 (6-14) Blood Urea Nitrogen 33 mg/dL (8-26) Creatinine 1.3 mg/dL (0.7-1.3) Estimated GFR (Cockcroft-Gault) 53.3 BUN/Creatinine Ratio 25 (6-20) Glucose Level 180 mg/dL (70-99) Calcium Level 7.6 mg/dL (8.5-10.1) Total Bilirubin 0.4 mg/dL (0.2-1.0) Aspartate Amino Transf (AST/SGOT) 95 U/L (15-37) Alanine Aminotransferase (ALT/SGPT) 45 U/L (16-63) Alkaline Phosphatase 42 U/L (46-116) Total Protein 5.6 g/dL (6.4-8.2) Albumin 2.1 g/dL (3.4-5.0) Albumin/Globulin Ratio 0.6 (1.0-1.7) O2 Saturation 92 % (92-99) Arterial Blood pH 7.43 (7.35-7.45) Arterial Blood pCO2 at Patient Temp 23 mmHg (35-46) Arterial Blood pO2 at Patient Temp 67 mmHg (65-108) Arterial Blood HCO3 15 mmol/L (21-28) Arterial Blood Base Excess -8 mmol/L (-3-3) FiO2 100 Medications Active Scripts Medications Dose Route/Sig Max Daily Dose Days Date Category Artificial Tears (Polyvinyl Alcohol) 15 Ml Drops 2 Drop EACHEYE QID 20 09/26/19 Reported Ibuprofen 400 Mg Tablet 400 Mg PO PRN Q6HRS PRN 09/26/19 Reported Tylophen (Acetaminophen) 500 Mg Capsule 500 Mg PO PRN Q6-8HRS 09/26/19 Reported Impression . Full note dictated, discussed with Dr. matt, patient will be given convalescent serum AALIYAH PINEDA MD Sep 27, 2019 14:20
--- NOTE | 2019-09-27 15:00 | CONS ---
DATE OF CONSULTATION: 09/27/2019 ATTENDING PHYSICIAN: Tammie Freeman MD REASON FOR CONSULTATION: The patient is seen in pulmonary consultation at the request of Dr. Freeman for acute hypoxemic respiratory failure, [id number] positive. HISTORY OF PRESENT ILLNESS: This patient is a 79-year-old male with a history of dementia, gastroesophageal hypertension, presented from [facility]. He was known to be a [id number] positive. The patient was brought to the Emergency Department by EMS for less lethargy, encephalopathy and further hypoxemia. EMS found the patient to be in the 80s on room air. They placed him on oxygen supplementation. The patient was admitted to the intensive care unit last evening, I was called with his clinical status. I administered IV remdesivir along with steroids. He was placed on high flow oxygen with Vapotherm. The patient today is a little bit more responsive. Not much significant history is obtained from the patient himself. He has dementia. He is a full code. I discussed the case with Dr. Freeman who is currently trying to obtain additional information from family members regarding his advanced directive. PAST MEDICAL HISTORY: Hypertension, dementia, gastroesophageal reflux, [id number] positive approximately a week ago from [facility]. PAST SURGICAL HISTORY: No recent major surgeries. FAMILY HISTORY: Alzheimer's. SOCIAL HISTORY: There is no history of tobacco use. ALLERGIES: No known drug allergies listed. REVIEW OF SYSTEMS: Unobtainable secondary to the patient's condition. PHYSICAL EXAMINATION: VITAL SIGNS: He is currently on Vapotherm 100% oxygen. He had a T-max yesterday 100.9. HEENT: Eyes, the sclerae were nonicteric. NECK: Jugular venous distention was not elevated. No lymphadenopathy. CHEST: Full expansion. LUNGS: Adequate flow with no wheezes. CARDIOVASCULAR: Regular rate and rhythm with S1, S2, no S3. ABDOMEN: Soft, nontender. EXTREMITIES: No clubbing, cyanosis or edema. NEUROLOGICAL: The patient was awake, detailed neuro exam was not performed. LABORATORY DATA: Reviewed. White count was normal. He did have a lymphopenia, [id number] was positive. Sodium was elevated. BUN was elevated, creatinine was elevated. Albumin was markedly low. Troponin was not elevated. D-dimer is pending. Arterial blood gas; pH of 7.43, PaCO2 of 23, pO2 of 67. CT angiogram for PE revealed diffuse emphysematous changes. There was dense consolidation of the posterior right lung base. There was diffuse interstitial thickening and ground-glass infiltrates in both lower lobes. There is no evidence of pulmonary emboli. IMPRESSION: 1. Acute hypoxemic respiratory failure. 2. COVID-[address] angiogram, no evidence of pulmonary embolism. 4. Abnormal CT angiogram revealing bilateral ground glass opacities and infiltrates compatible with viral pneumonia. 5. Metabolic toxic encephalopathy. 6. History of dementia. 7. Hypertension. 8. Hypotension related to COVID-19. 9. Sepsis. PLAN: 1. We will continue current support with IV fluids. 2. Empiric antibiotics. 3. The patient initiated on remdesivir last night. 4. Administer convalescent serum. 5. Empiric antibiotics were initiated with vancomycin and piperacillin. 6. Vitamin supplement. 7. DVT prophylaxis, Lovenox to 40 b.i.d. 8. Follow D-dimer. Total cumulative critical care time of 45 minutes reviewing data, labs, chest x-ray, and formulating a plan. Case was discussed with Dr. Freeman who is currently trying to obtain additional information regarding the patient's advanced directive. My recommendations would be to proceed with aggressive care short of intubation. AALIYAH PINEDA MD DR: HALEY/yuriy JOB#: [id number] / [id number]
[2019-09-27] MEDS: AMINO AC 3%/ELECTROLYTE/GLYCER 1,000 ML IV SCH ×2 (15:40→21:40)
[2019-09-28] VITALS (27 sets, daily range): BP systolic 75–127; BP diastolic 46–78
[2019-09-28] MEDS: PIPERACILLIN/TAZOBACTAM 3.375 GM in IV NORMAL SALINE 50ML 50 ML IV SCH ×4 (01:32→18:17)
[2019-09-28 04:11] LABS: BASO % 0 % (0-3); EOS % 0 % (0-3); HEMOGLOBIN 12.6 g/dL (13.0-17.5); LYMPH # 0.4 x10^3/uL (1.0-4.8); LYMPH % 5 % (24-48); MEAN CORPUSCULAR HEMOGLOBIN 34 pg (25-35); MEAN CORPUSCULAR HGB CONC 34 g/dL (31-37); MEAN CORPUSCULAR VOLUME 99 fL (79-100); MONO # 0.3 x10^3/uL (0.0-1.1); MONO % 4 % (0-9); NEUT # 7.9 x10^3/uL (1.8-7.7); NEUT % 91 % (31-73); PLATELET COUNT 170 x10^3/uL (140-400); RED BLOOD COUNT 3.73 x10^6/uL (4.30-5.70); RED CELL DISTRIBUTION WIDTH 15.4 % (11.5-14.5); WHITE BLOOD COUNT 8.7 x10^3/uL (4.0-11.0)
[2019-09-28 04:26] LABS: ALBUMIN 2.1 g/dL (3.4-5.0); ALBUMIN/GLOBULIN RATIO 0.6 (1.0-1.7); CALCIUM 7.7 mg/dL (8.5-10.1); CREATININE 1.4 mg/dL (0.7-1.3); GFR 48.9; POTASSIUM 3.4 mmol/L (3.5-5.1); TOTAL BILIRUBIN 0.5 mg/dL (0.2-1.0); TOTAL PROTEIN 5.8 g/dL (6.4-8.2)
[2019-09-28] MEDS: methylPREDNISolone SOD SUCC PF 40 MG/ML VIAL. IV SCH ×3 (06:18→22:23)
[2019-09-28] MEDS ORDERED: ATROPINE 0.5 MG/5 ML DISP.SYRINGE. IV PRN (07:15)
[2019-09-28] MEDS ORDERED: IV NORMAL SALINE 500ML BAG 500 ML IV PRN (07:15)
[2019-09-28] MEDS ORDERED: DEXMEDETOMIDINE 400 MCG in IV NORMAL SALINE 100ML 96 ML IV PRN (07:30)
[2019-09-28 07:46] LABS: BASE EXCESS ABG -4 mmol/L (-3-3); HCO3 ABG 19 mmol/L (21-28); PCO2 ABG 29 mmHg (35-46); PO2 ABG 69 mmHg (65-108); SAT O2 ABG 93 % (92-99)
[2019-09-28 08:04] LABS: FIO2 ABG 100%
[2019-09-28] MEDS: ENOXAPARIN 40 MG/0.4 ML SYRINGE. SQ SCH ×2 (08:27→21:24)
[2019-09-28] MEDS: INSULIN LISPRO 300 UNITS/3 ML VIAL. SQ SCH ×3 (08:32→18:18)
[2019-09-28] MEDS: ZINC SULFATE 220 MG CAPSULE. PO SCH (08:38)
[2019-09-28] MEDS: BENZONATATE 100 MG CAPSULE. PO SCH ×3 (08:38→21:00)
[2019-09-28] MEDS: ASCORBIC ACID 500 MG TABLET PO SCH (08:39)
[2019-09-28] MEDS: CHOLECALCIFEROL (VITAMIN D3) 5,000 UNIT CAPSULE PO SCH (08:39)
--- NOTE | 2019-09-28 08:56 | PDOC ---
PULMONARY PROGRESS NOTES Subjective Patient more awake today, wishes to eat something and drink Patient does not have any family, no DURABLE POWER OF [employer]ER, he expressed to the nursing staff that he wanted to be made comfort care, no intubation. I confirmed the above Vitals Vital Signs Date Time Temp Pulse Resp B/P (MAP) Pulse Ox O2 Delivery O2 Flow Rate FiO2 09/28/19 07:30 92 BiPAP/CPAP 09/28/19 07:00 78 24 112/59 (76) 09/28/19 04:00 98.9 98.9 09/27/19 21:00 40.0 ROS: No Nausea, No Chest Pain, No Abdominal Pain, No Increase Cough General: Alert Lungs: Crackles Cardiovascular: S1, S2 Abdomen: Soft Neuro Exam: Alert Extremities: Other (Mild edema) Skin: Warm Labs Laboratory Tests Test 09/26/19 10:42 09/26/19 10:49 09/26/19 11:05 09/26/19 11:50 White Blood Count 9.8 x10^3/uL (4.0-11.0) Red Blood Count 4.21 x10^6/uL (4.30-5.70) Hemoglobin 14.2 g/dL (13.0-17.5) Hematocrit 41.1 % (39.0-53.0) Mean Corpuscular Volume 98 fL (79-100) Mean Corpuscular Hemoglobin 34 pg (25-35) Mean Corpuscular Hemoglobin Concent 35 g/dL (31-37) Red Cell Distribution Width 14.7 % (11.5-14.5) Platelet Count 166 x10^3/uL (140-400) Neutrophils (%) (Auto) 87 % (31-73) Lymphocytes (%) (Auto) 7 % (24-48) Monocytes (%) (Auto) 6 % (0-9) Eosinophils (%) (Auto) 0 % (0-3) Basophils (%) (Auto) 0 % (0-3) Neutrophils # (Auto) 8.5 x10^3/uL (1.8-7.7) Lymphocytes # (Auto) 0.6 x10^3/uL (1.0-4.8) Monocytes # (Auto) 0.6 x10^3/uL (0.0-1.1) Eosinophils # (Auto) 0.0 x10^3/uL (0.0-0.7) Basophils # (Auto) 0.0 x10^3/uL (0.0-0.2) Segmented Neutrophils % 81 % (35-66) Band Neutrophils % 11 % (0-9) Lymphocytes % 7 % (24-48) Monocytes % 1 % (0-10) Platelet Estimate Adequate (ADEQUATE) Prothrombin Time 13.3 SEC (11.7-14.0) Prothromb Time International Ratio 1.1 (0.8-1.1) Activated Partial Thromboplast Time 30 SEC (24-38) Sodium Level 143 mmol/L (136-145) Potassium Level 4.1 mmol/L (3.5-5.1) Chloride Level 107 mmol/L (98-107) Carbon Dioxide Level 24 mmol/L (21-32) Anion Gap 12 (6-14) Blood Urea Nitrogen 47 mg/dL (8-26) Creatinine 1.7 mg/dL (0.7-1.3) Estimated GFR (Cockcroft-Gault) 39.1 BUN/Creatinine Ratio 28 (6-20) Glucose Level 152 mg/dL (70-99) Lactic Acid Level 2.1 mmol/L (0.4-2.0) Calcium Level 8.3 mg/dL (8.5-10.1) Magnesium Level 2.3 mg/dL (1.8-2.4) Total Bilirubin 0.6 mg/dL (0.2-1.0) Aspartate Amino Transf (AST/SGOT) 92 U/L (15-37) Alanine Aminotransferase (ALT/SGPT) 45 U/L (16-63) Alkaline Phosphatase 49 U/L (46-116) Creatine Kinase 1286 U/L (39-308) Troponin I Quantitative 0.037 ng/mL (0.000-0.055) Total Protein 6.8 g/dL (6.4-8.2) Albumin 2.8 g/dL (3.4-5.0) Albumin/Globulin Ratio 0.7 (1.0-1.7) O2 Saturation 86 % (92-99) Arterial Blood pH 7.44 (7.35-7.45) Arterial Blood pCO2 at Patient Temp 31 mmHg (35-46) Arterial Blood pO2 at Patient Temp 51 mmHg (65-108) Arterial Blood HCO3 21 mmol/L (21-28) Arterial Blood Base Excess -2 mmol/L (-3-3) FiO2 100 Urine Collection Type Unknown Urine Color Yellow Urine Clarity Clear Urine pH 5.5 (<5.0-8.0) Urine Specific [place] 1.020 (1.000-1.030) Urine Protein 100 mg/dL (NEG-TRACE) Urine Glucose (UA) Negative mg/dL (NEG) Urine Ketones (Stick) Trace mg/dL (NEG) Urine Blood Moderate (NEG) Urine Nitrite Negative (NEG) Urine Bilirubin Negative (NEG) Urine Urobilinogen Dipstick 0.2 mg/dL (0.2 mg/dL) Urine Leukocyte Esterase Negative (NEG) Urine RBC 11-20 /HPF (0-2) Urine WBC 1-4 /HPF (0-4) Urine Squamous Epithelial Cells Few /LPF Urine Amorphous Sediment Present /HPF Urine Bacteria Few /HPF (0-FEW) Urine Hyaline Casts Moderate /HPF Urine Granular Casts Few /HPF Urine Mucus Mod /LPF Coronavirus (COVID-19)(PCR) Detected (NOT DETECT.) Test 09/26/19 14:35 09/27/19 03:45 09/27/19 13:05 09/27/19 17:41 Lactic Acid Level 1.6 mmol/L (0.4-2.0) White Blood Count 7.7 x10^3/uL (4.0-11.0) Red Blood Count 3.71 x10^6/uL (4.30-5.70) Hemoglobin 12.4 g/dL (13.0-17.5) Hematocrit 36.5 % (39.0-53.0) Mean Corpuscular Volume 98 fL (79-100) Mean Corpuscular Hemoglobin 33 pg (25-35) Mean Corpuscular Hemoglobin Concent 34 g/dL (31-37) Red Cell Distribution Width 15.1 % (11.5-14.5) Platelet Count 154 x10^3/uL (140-400) Neutrophils (%) (Auto) 92 % (31-73) Lymphocytes (%) (Auto) 4 % (24-48) Monocytes (%) (Auto) 4 % (0-9) Eosinophils (%) (Auto) 0 % (0-3) Basophils (%) (Auto) 0 % (0-3) Neutrophils # (Auto) 7.1 x10^3/uL (1.8-7.7) Lymphocytes # (Auto) 0.3 x10^3/uL (1.0-4.8) Monocytes # (Auto) 0.3 x10^3/uL (0.0-1.1) Eosinophils # (Auto) 0.0 x10^3/uL (0.0-0.7) Basophils # (Auto) 0.0 x10^3/uL (0.0-0.2) Sodium Level 148 mmol/L (136-145) Potassium Level 3.7 mmol/L (3.5-5.1) Chloride Level 113 mmol/L (98-107) Carbon Dioxide Level 23 mmol/L (21-32) Anion Gap 12 (6-14) Blood Urea Nitrogen 33 mg/dL (8-26) Creatinine 1.3 mg/dL (0.7-1.3) Estimated GFR (Cockcroft-Gault) 53.3 BUN/Creatinine Ratio 25 (6-20) Glucose Level 180 mg/dL (70-99) Calcium Level 7.6 mg/dL (8.5-10.1) Total Bilirubin 0.4 mg/dL (0.2-1.0) Aspartate Amino Transf (AST/SGOT) 95 U/L (15-37) Alanine Aminotransferase (ALT/SGPT) 45 U/L (16-63) Alkaline Phosphatase 42 U/L (46-116) Total Protein 5.6 g/dL (6.4-8.2) Albumin 2.1 g/dL (3.4-5.0) Albumin/Globulin Ratio 0.6 (1.0-1.7) O2 Saturation 92 % (92-99) Arterial Blood pH 7.43 (7.35-7.45) Arterial Blood pCO2 at Patient Temp 23 mmHg (35-46) Arterial Blood pO2 at Patient Temp 67 mmHg (65-108) Arterial Blood HCO3 15 mmol/L (21-28) Arterial Blood Base Excess -8 mmol/L (-3-3) FiO2 100 Glucose (Fingerstick) 153 mg/dL (70-99) Test 09/28/19 03:40 09/28/19 07:40 White Blood Count 8.7 x10^3/uL (4.0-11.0) Red Blood Count 3.73 x10^6/uL (4.30-5.70) Hemoglobin 12.6 g/dL (13.0-17.5) Hematocrit 37.0 % (39.0-53.0) Mean Corpuscular Volume 99 fL (79-100) Mean Corpuscular Hemoglobin 34 pg (25-35) Mean Corpuscular Hemoglobin Concent 34 g/dL (31-37) Red Cell Distribution Width 15.4 % (11.5-14.5) Platelet Count 170 x10^3/uL (140-400) Neutrophils (%) (Auto) 91 % (31-73) Lymphocytes (%) (Auto) 5 % (24-48) Monocytes (%) (Auto) 4 % (0-9) Eosinophils (%) (Auto) 0 % (0-3) Basophils (%) (Auto) 0 % (0-3) Neutrophils # (Auto) 7.9 x10^3/uL (1.8-7.7) Lymphocytes # (Auto) 0.4 x10^3/uL (1.0-4.8) Monocytes # (Auto) 0.3 x10^3/uL (0.0-1.1) Eosinophils # (Auto) 0.0 x10^3/uL (0.0-0.7) Basophils # (Auto) 0.0 x10^3/uL (0.0-0.2) Sodium Level 150 mmol/L (136-145) Potassium Level 3.4 mmol/L (3.5-5.1) Chloride Level 115 mmol/L (98-107) Carbon Dioxide Level 25 mmol/L (21-32) Anion Gap 10 (6-14) Blood Urea Nitrogen 41 mg/dL (8-26) Creatinine 1.4 mg/dL (0.7-1.3) Estimated GFR (Cockcroft-Gault) 48.9 BUN/Creatinine Ratio 29 (6-20) Glucose Level 212 mg/dL (70-99) Calcium Level 7.7 mg/dL (8.5-10.1) Magnesium Level 2.4 mg/dL (1.8-2.4) Total Bilirubin 0.5 mg/dL (0.2-1.0) Aspartate Amino Transf (AST/SGOT) 76 U/L (15-37) Alanine Aminotransferase (ALT/SGPT) 52 U/L (16-63) Alkaline Phosphatase 45 U/L (46-116) Total Protein 5.8 g/dL (6.4-8.2) Albumin 2.1 g/dL (3.4-5.0) Albumin/Globulin Ratio 0.6 (1.0-1.7) O2 Saturation 93 % (92-99) Arterial Blood pH 7.45 (7.35-7.45) Arterial Blood pCO2 at Patient Temp 29 mmHg (35-46) Arterial Blood pO2 at Patient Temp 69 mmHg (65-108) Arterial Blood HCO3 19 mmol/L (21-28) Arterial Blood Base Excess -4 mmol/L (-3-3) FiO2 100% Laboratory Tests Test 09/27/19 13:05 09/27/19 17:41 09/28/19 03:40 09/28/19 07:40 O2 Saturation 92 % (92-99) 93 % (92-99) Arterial Blood pH 7.43 (7.35-7.45) 7.45 (7.35-7.45) Arterial Blood pCO2 at Patient Temp 23 mmHg (35-46) 29 mmHg (35-46) Arterial Blood pO2 at Patient Temp 67 mmHg (65-108) 69 mmHg (65-108) Arterial Blood HCO3 15 mmol/L (21-28) 19 mmol/L (21-28) Arterial Blood Base Excess -8 mmol/L (-3-3) -4 mmol/L (-3-3) FiO2 100 100% Glucose (Fingerstick) 153 mg/dL (70-99) White Blood Count 8.7 x10^3/uL (4.0-11.0) Red Blood Count 3.73 x10^6/uL (4.30-5.70) Hemoglobin 12.6 g/dL (13.0-17.5) Hematocrit 37.0 % (39.0-53.0) Mean Corpuscular Volume 99 fL (79-100) Mean Corpuscular Hemoglobin 34 pg (25-35) Mean Corpuscular Hemoglobin Concent 34 g/dL (31-37) Red Cell Distribution Width 15.4 % (11.5-14.5) Platelet Count 170 x10^3/uL (140-400) Neutrophils (%) (Auto) 91 % (31-73) Lymphocytes (%) (Auto) 5 % (24-48) Monocytes (%) (Auto) 4 % (0-9) Eosinophils (%) (Auto) 0 % (0-3) Basophils (%) (Auto) 0 % (0-3) Neutrophils # (Auto) 7.9 x10^3/uL (1.8-7.7) Lymphocytes # (Auto) 0.4 x10^3/uL (1.0-4.8) Monocytes # (Auto) 0.3 x10^3/uL (0.0-1.1) Eosinophils # (Auto) 0.0 x10^3/uL (0.0-0.7) Basophils # (Auto) 0.0 x10^3/uL (0.0-0.2) Sodium Level 150 mmol/L (136-145) Potassium Level 3.4 mmol/L (3.5-5.1) Chloride Level 115 mmol/L (98-107) Carbon Dioxide Level 25 mmol/L (21-32) Anion Gap 10 (6-14) Blood Urea Nitrogen 41 mg/dL (8-26) Creatinine 1.4 mg/dL (0.7-1.3) Estimated GFR (Cockcroft-Gault) 48.9 BUN/Creatinine Ratio 29 (6-20) Glucose Level 212 mg/dL (70-99) Calcium Level 7.7 mg/dL (8.5-10.1) Magnesium Level 2.4 mg/dL (1.8-2.4) Total Bilirubin 0.5 mg/dL (0.2-1.0) Aspartate Amino Transf (AST/SGOT) 76 U/L (15-37) Alanine Aminotransferase (ALT/SGPT) 52 U/L (16-63) Alkaline Phosphatase 45 U/L (46-116) Total Protein 5.8 g/dL (6.4-8.2) Albumin 2.1 g/dL (3.4-5.0) Albumin/Globulin Ratio 0.6 (1.0-1.7) Medications Active Scripts Medications Dose Route/Sig Max Daily Dose Days Date Category Artificial Tears (Polyvinyl Alcohol) 15 Ml Drops 2 Drop EACHEYE QID 20 09/26/19 Reported Ibuprofen 400 Mg Tablet 400 Mg PO PRN Q6HRS PRN 09/26/19 Reported Tylophen (Acetaminophen) 500 Mg Capsule 500 Mg PO PRN Q6-8HRS 09/26/19 Reported Impression . IMPRESSION: 1. Acute hypoxemic respiratory failure. 2. COVID-[address] angiogram, no evidence of pulmonary embolism. 4. Abnormal CT angiogram revealing bilateral ground glass opacities and infiltrates compatible with viral pneumonia. 5. Metabolic toxic encephalopathy. 6. History of dementia. 7. Hypertension. 8. Hypotension related to COVID-19. 9. Sepsis. 10 dysphagia, patient wanting pleasure feeding Plan . Patient expressed that these that he does not want to be intubated, wishes to proceed with pleasure feeding despite possible aspiration We will continue support with IV for Initiate pressors for mean arterial pressure above 60 Empiric antibiotic Remdesivir continue Status post convalescent serum. Follow labs DVT prophylaxis Total cumulative critical care time of 45 minutes reviewing data, labs, chest x-ray, and formulating a plan. Case was discussed with Dr. Matt will proceed with honoring patient's wishes not to proceed with intubation Both Dr. matt and I concur with the patient's wishes AALIYAH PINEDA MD Sep 28, 2019 08:56
[2019-09-28] MEDS: VITAMIN B12,B9,B6 COMPLEX 1 TABLET. PO SCH (09:00)
[2019-09-28] MEDS: NON FORMULARY ITEM 1 EA in IV NORMAL SALINE 250ML 250 ML IV SCH (09:10)
[2019-09-28] MEDS ORDERED: ONDANSETRON PF 4 MG/2 ML VIAL. ONE (10:33)
[2019-09-28] MEDS: IV NORMAL SALINE 1000ML BAG 1,000 ML IV SCH (10:52)
[2019-09-28 12:18] LABS: VANC TR 6.7 mcg/mL (10.0-20.0)
[2019-09-28] MEDS: IV RINGERS,LACTATED 1000ML 1,000 ML IV SCH ×2 (12:20→22:24)
[2019-09-28] MEDS: VANCOMYCIN 1.25 GM in IV NORMAL SALINE 250ML 250 ML IV SCH (12:20)
[2019-09-28] MEDS: AMINO AC 3%/ELECTROLYTE/GLYCER 1,000 ML IV SCH (12:21)
[2019-09-28] MEDS: VANCOMYCIN PER PHARMACY MC PRN (12:38)
--- NOTE | 2019-09-28 12:41 | NUR ---
Pharmacy Vancomycin Dosing Note S: Consulted to monitor and dose vancomycin started 09/26/19. O: BUZZ JANSEN is a 79 year old M with HCAP. Other Antibiotics: zosyn 3.375 gm q6hrs LABS: Last BUN: 41 Last Creatinine: 1.4 Creatinine Clearance: 46 mL/min Last WBC: 8.7 Tmax (past 24 hours): [id number] Microbiology: 09/25: BLOOD CX [id number] Drug Levels: Last Trough level: 6.7 on 09/28/19 at 1200 Vancomycin Dosing: Dosing Weight: Actual Target Trough: 15-20 A: Based on: SUBTHERAPEUTIC TROUGH P: 1. Change Vancomycin to 1500 mg IV q18h 2. Follow up Trough level on 09/30/19 at 1330 3. Pharmacy will continue to monitor, follow and adjust therapy as needed. DEEPAK SIGALA Vladimir, 09/28/19 [id number]
[2019-09-28] MEDS: POTASSIUM CHLORIDE 10MEQ 100 ML IV SCH ×2 (15:30→15:31)
--- NOTE | 2019-09-28 16:00 | PDOC ---
PROGRESS NOTES Chief Complaint Chief Complaint LATE entry, pt seen 7.2 in the ICU, 35 min care COVID-19, pos test 09/19 acute hypoxic respiratory faiulre severe sepsis pneumoniits, broad antibiotics, pneumonia and sepsis, acute renal failure, vasomotor, and acute rhabdomyolysis, admit chronic dementia with acute on chronic encephalopathy severe malnutrition, POA Vitals Vitals Vital Signs Date Time Temp Pulse Resp B/P (MAP) Pulse Ox O2 Delivery O2 Flow Rate FiO2 09/28/19 15:22 82 vapo therm 09/28/19 15:00 96 30 117/58 (77) 40.0 09/28/19 12:00 97.5 97.5 Physical Exam General: Alert, Cooperative, No acute distress, Other (poorly oriented, ) Lungs: Crackles Abdomen: Normal bowel sounds, Soft Extremities: No cyanosis, No edema, Normal pulses Skin: No rashes, No breakdown Labs LABS Laboratory Tests Test 09/27/19 17:41 09/28/19 03:40 09/28/19 07:40 09/28/19 10:30 Glucose (Fingerstick) 153 mg/dL (70-99) 192 mg/dL (70-99) White Blood Count 8.7 x10^3/uL (4.0-11.0) Red Blood Count 3.73 x10^6/uL (4.30-5.70) Hemoglobin 12.6 g/dL (13.0-17.5) Hematocrit 37.0 % (39.0-53.0) Mean Corpuscular Volume 99 fL (79-100) Mean Corpuscular Hemoglobin 34 pg (25-35) Mean Corpuscular Hemoglobin Concent 34 g/dL (31-37) Red Cell Distribution Width 15.4 % (11.5-14.5) Platelet Count 170 x10^3/uL (140-400) Neutrophils (%) (Auto) 91 % (31-73) Lymphocytes (%) (Auto) 5 % (24-48) Monocytes (%) (Auto) 4 % (0-9) Eosinophils (%) (Auto) 0 % (0-3) Basophils (%) (Auto) 0 % (0-3) Neutrophils # (Auto) 7.9 x10^3/uL (1.8-7.7) Lymphocytes # (Auto) 0.4 x10^3/uL (1.0-4.8) Monocytes # (Auto) 0.3 x10^3/uL (0.0-1.1) Eosinophils # (Auto) 0.0 x10^3/uL (0.0-0.7) Basophils # (Auto) 0.0 x10^3/uL (0.0-0.2) Sodium Level 150 mmol/L (136-145) Potassium Level 3.4 mmol/L (3.5-5.1) Chloride Level 115 mmol/L (98-107) Carbon Dioxide Level 25 mmol/L (21-32) Anion Gap 10 (6-14) Blood Urea Nitrogen 41 mg/dL (8-26) Creatinine 1.4 mg/dL (0.7-1.3) Estimated GFR (Cockcroft-Gault) 48.9 BUN/Creatinine Ratio 29 (6-20) Glucose Level 212 mg/dL (70-99) Calcium Level 7.7 mg/dL (8.5-10.1) Magnesium Level 2.4 mg/dL (1.8-2.4) Total Bilirubin 0.5 mg/dL (0.2-1.0) Aspartate Amino Transf (AST/SGOT) 76 U/L (15-37) Alanine Aminotransferase (ALT/SGPT) 52 U/L (16-63) Alkaline Phosphatase 45 U/L (46-116) Total Protein 5.8 g/dL (6.4-8.2) Albumin 2.1 g/dL (3.4-5.0) Albumin/Globulin Ratio 0.6 (1.0-1.7) O2 Saturation 93 % (92-99) Arterial Blood pH 7.45 (7.35-7.45) Arterial Blood pCO2 at Patient Temp 29 mmHg (35-46) Arterial Blood pO2 at Patient Temp 69 mmHg (65-108) Arterial Blood HCO3 19 mmol/L (21-28) Arterial Blood Base Excess -4 mmol/L (-3-3) FiO2 100% Test 09/28/19 11:40 Vancomycin Level Trough 6.7 mcg/mL (10.0-20.0) Vancomycin Last Dose Date 10/15/2019 Vancomycin Last Dose Time 1200 Assessment and Plan Assessmemt and Plan Problems Medical Problems: (1) Acute respiratory failure with hypoxia Status: Acute (2) COVID-19 Status: Acute (3) HCAP (healthcare-associated pneumonia) Status: Acute (4) Renal insufficiency Status: Acute (5) Severe sepsis Status: Acute Comment Review of Relevant I have reviewed the following items cuco (where applicable) has been applied. Labs Laboratory Tests Test 09/27/19 03:45 09/27/19 13:05 09/27/19 17:41 09/28/19 03:40 White Blood Count 7.7 x10^3/uL (4.0-11.0) 8.7 x10^3/uL (4.0-11.0) Red Blood Count 3.71 x10^6/uL (4.30-5.70) 3.73 x10^6/uL (4.30-5.70) Hemoglobin 12.4 g/dL (13.0-17.5) 12.6 g/dL (13.0-17.5) Hematocrit 36.5 % (39.0-53.0) 37.0 % (39.0-53.0) Mean Corpuscular Volume 98 fL (79-100) 99 fL (79-100) Mean Corpuscular Hemoglobin 33 pg (25-35) 34 pg (25-35) Mean Corpuscular Hemoglobin Concent 34 g/dL (31-37) 34 g/dL (31-37) Red Cell Distribution Width 15.1 % (11.5-14.5) 15.4 % (11.5-14.5) Platelet Count 154 x10^3/uL (140-400) 170 x10^3/uL (140-400) Neutrophils (%) (Auto) 92 % (31-73) 91 % (31-73) Lymphocytes (%) (Auto) 4 % (24-48) 5 % (24-48) Monocytes (%) (Auto) 4 % (0-9) 4 % (0-9) Eosinophils (%) (Auto) 0 % (0-3) 0 % (0-3) Basophils (%) (Auto) 0 % (0-3) 0 % (0-3) Neutrophils # (Auto) 7.1 x10^3/uL (1.8-7.7) 7.9 x10^3/uL (1.8-7.7) Lymphocytes # (Auto) 0.3 x10^3/uL (1.0-4.8) 0.4 x10^3/uL (1.0-4.8) Monocytes # (Auto) 0.3 x10^3/uL (0.0-1.1) 0.3 x10^3/uL (0.0-1.1) Eosinophils # (Auto) 0.0 x10^3/uL (0.0-0.7) 0.0 x10^3/uL (0.0-0.7) Basophils # (Auto) 0.0 x10^3/uL (0.0-0.2) 0.0 x10^3/uL (0.0-0.2) Sodium Level 148 mmol/L (136-145) 150 mmol/L (136-145) Potassium Level 3.7 mmol/L (3.5-5.1) 3.4 mmol/L (3.5-5.1) Chloride Level 113 mmol/L (98-107) 115 mmol/L (98-107) Carbon Dioxide Level 23 mmol/L (21-32) 25 mmol/L (21-32) Anion Gap 12 (6-14) 10 (6-14) Blood Urea Nitrogen 33 mg/dL (8-26) 41 mg/dL (8-26) Creatinine 1.3 mg/dL (0.7-1.3) 1.4 mg/dL (0.7-1.3) Estimated GFR (Cockcroft-Gault) 53.3 48.9 BUN/Creatinine Ratio 25 (6-20) 29 (6-20) Glucose Level 180 mg/dL (70-99) 212 mg/dL (70-99) Calcium Level 7.6 mg/dL (8.5-10.1) 7.7 mg/dL (8.5-10.1) Total Bilirubin 0.4 mg/dL (0.2-1.0) 0.5 mg/dL (0.2-1.0) Aspartate Amino Transf (AST/SGOT) 95 U/L (15-37) 76 U/L (15-37) Alanine Aminotransferase (ALT/SGPT) 45 U/L (16-63) 52 U/L (16-63) Alkaline Phosphatase 42 U/L (46-116) 45 U/L (46-116) Total Protein 5.6 g/dL (6.4-8.2) 5.8 g/dL (6.4-8.2) Albumin 2.1 g/dL (3.4-5.0) 2.1 g/dL (3.4-5.0) Albumin/Globulin Ratio 0.6 (1.0-1.7) 0.6 (1.0-1.7) O2 Saturation 92 % (92-99) Arterial Blood pH 7.43 (7.35-7.45) Arterial Blood pCO2 at Patient Temp 23 mmHg (35-46) Arterial Blood pO2 at Patient Temp 67 mmHg (65-108) Arterial Blood HCO3 15 mmol/L (21-28) Arterial Blood Base Excess -8 mmol/L (-3-3) FiO2 100 Glucose (Fingerstick) 153 mg/dL (70-99) Magnesium Level 2.4 mg/dL (1.8-2.4) Test 09/28/19 07:40 09/28/19 10:30 09/28/19 11:40 O2 Saturation 93 % (92-99) Arterial Blood pH 7.45 (7.35-7.45) Arterial Blood pCO2 at Patient Temp 29 mmHg (35-46) Arterial Blood pO2 at Patient Temp 69 mmHg (65-108) Arterial Blood HCO3 19 mmol/L (21-28) Arterial Blood Base Excess -4 mmol/L (-3-3) FiO2 100% Glucose (Fingerstick) 192 mg/dL (70-99) Vancomycin Level Trough 6.7 mcg/mL (10.0-20.0) Vancomycin Last Dose Date 10/15/2019 Vancomycin Last Dose Time 1200 Laboratory Tests Test 09/27/19 17:41 09/28/19 03:40 09/28/19 07:40 09/28/19 10:30 Glucose (Fingerstick) 153 mg/dL (70-99) 192 mg/dL (70-99) White Blood Count 8.7 x10^3/uL (4.0-11.0) Red Blood Count 3.73 x10^6/uL (4.30-5.70) Hemoglobin 12.6 g/dL (13.0-17.5) Hematocrit 37.0 % (39.0-53.0) Mean Corpuscular Volume 99 fL (79-100) Mean Corpuscular Hemoglobin 34 pg (25-35) Mean Corpuscular Hemoglobin Concent 34 g/dL (31-37) Red Cell Distribution Width 15.4 % (11.5-14.5) Platelet Count 170 x10^3/uL (140-400) Neutrophils (%) (Auto) 91 % (31-73) Lymphocytes (%) (Auto) 5 % (24-48) Monocytes (%) (Auto) 4 % (0-9) Eosinophils (%) (Auto) 0 % (0-3) Basophils (%) (Auto) 0 % (0-3) Neutrophils # (Auto) 7.9 x10^3/uL (1.8-7.7) Lymphocytes # (Auto) 0.4 x10^3/uL (1.0-4.8) Monocytes # (Auto) 0.3 x10^3/uL (0.0-1.1) Eosinophils # (Auto) 0.0 x10^3/uL (0.0-0.7) Basophils # (Auto) 0.0 x10^3/uL (0.0-0.2) Sodium Level 150 mmol/L (136-145) Potassium Level 3.4 mmol/L (3.5-5.1) Chloride Level 115 mmol/L (98-107) Carbon Dioxide Level 25 mmol/L (21-32) Anion Gap 10 (6-14) Blood Urea Nitrogen 41 mg/dL (8-26) Creatinine 1.4 mg/dL (0.7-1.3) Estimated GFR (Cockcroft-Gault) 48.9 BUN/Creatinine Ratio 29 (6-20) Glucose Level 212 mg/dL (70-99) Calcium Level 7.7 mg/dL (8.5-10.1) Magnesium Level 2.4 mg/dL (1.8-2.4) Total Bilirubin 0.5 mg/dL (0.2-1.0) Aspartate Amino Transf (AST/SGOT) 76 U/L (15-37) Alanine Aminotransferase (ALT/SGPT) 52 U/L (16-63) Alkaline Phosphatase 45 U/L (46-116) Total Protein 5.8 g/dL (6.4-8.2) Albumin 2.1 g/dL (3.4-5.0) Albumin/Globulin Ratio 0.6 (1.0-1.7) O2 Saturation 93 % (92-99) Arterial Blood pH 7.45 (7.35-7.45) Arterial Blood pCO2 at Patient Temp 29 mmHg (35-46) Arterial Blood pO2 at Patient Temp 69 mmHg (65-108) Arterial Blood HCO3 19 mmol/L (21-28) Arterial Blood Base Excess -4 mmol/L (-3-3) FiO2 100% Test 09/28/19 11:40 Vancomycin Level Trough 6.7 mcg/mL (10.0-20.0) Vancomycin Last Dose Date 10/15/2019 Vancomycin Last Dose Time 1200 Microbiology 09/26/19 Blood Culture - Preliminary, Resulted NO GROWTH AFTER 2 DAYS Medications Current Medications Piperacillin Sod/ Tazobactam Sod 4.5 gm/Sodium Chloride 100 ml @ 200 mls/hr 1X ONCE IV Last administered on 09/26/19at 11:03; Start 09/26/19 at 11:00; Stop 09/26/19 at 11:29; Status DC Vancomycin HCl (Vanco Per Pharmacy) 1 each 1X ONCE MC Last administered on 09/26/19at 11:00; Start 09/26/19 at 11:00; Stop 09/26/19 at 15:59; Status DC Sodium Chloride 1,000 ml @ 1,000 mls/hr 1X ONCE IV Last administered on 09/26/19at 11:02; Start 09/26/19 at 11:00; Stop 09/26/19 at 11:59; Status DC Sodium Chloride 1,000 ml @ 1,000 mls/hr 1X ONCE IV Last administered on 09/26/19at 11:03; Start 09/26/19 at 11:00; Stop 09/26/19 at 11:59; Status DC Sterile Water (WATER for RESP) 1,000 ml CONT PRN INH VIA VAPOTHERM DEVICE Last administered on 09/27/19at 20:29; Start 09/26/19 at 11:00 Vancomycin HCl 2 gm/Sodium Chloride 500 ml @ 250 mls/hr 1X ONCE IV Last administered on 09/26/19at 11:47; Start 09/26/19 at 11:30; Stop 09/26/19 at 13:29; Status DC Iohexol (Omnipaque 350 Mg/ml) 90 ml 1X ONCE IV Last administered on 09/26/19at 11:45; Start 09/26/19 at 11:45; Stop 09/26/19 at 11:46; Status DC Info (CONTRAST GIVEN -- Rx MONITORING) 1 each PRN DAILY PRN MC SEE COMMENTS; Start 09/26/19 at 11:45; Stop 09/28/19 at 11:44; Status DC Enoxaparin Sodium (Lovenox Per Pharmacy Prophylaxis Dosing) 1 each PRN DAILY PRN MC SEE COMMENTS; Start 09/26/19 at 14:30 Enoxaparin Sodium (Lovenox 40mg Syringe) 40 mg BID SQ Last administered on 09/28/19at 08:27; Start 09/26/19 at 15:00 Benzonatate (Tessalon Perle) 100 mg [id number] PO Last administered on 09/27/19at 21:50; Start 09/26/19 at 21:00 Zinc Sulfate (Orazinc) 220 mg DAILY PO Last administered on 09/27/19at 08:16; Start 09/27/19 at 09:00 Ascorbic Acid (Vitamin C) 500 mg DAILY PO Last administered on 09/27/19at 08:16; Start 09/27/19 at 09:00 Vitamin D (Vitamin D3) 5,000 unit DAILY PO Last administered on 09/27/19at 08:16; Start 09/27/19 at 09:00 Vitamin B Complex (Folbic Tablet) 1 tab DAILY PO ; Start 09/27/19 at 09:00 Vancomycin HCl (Vanco Per Pharmacy) 1 each PRN DAILY PRN MC SEE COMMENTS Last administered on 09/28/19at 12:38; Start 09/26/19 at 17:30 Piperacillin Sod/ Tazobactam Sod (Zosyn Per Pharmacy) 1 each PRN DAILY PRN MC SEE COMMENTS; Start 09/26/19 at 17:30 Sodium Chloride 1,000 ml @ 100 mls/hr Q10H IV Last administered on 09/28/19at 10:52; Start 09/26/19 at 17:30; Stop 09/28/19 at 12:00; Status DC Piperacillin Sod/ Tazobactam Sod 3.375 gm/Sodium Chloride 50 ml @ 100 mls/hr Q 6HRS IV Last administered on 09/28/19at 12:20; Start 09/26/19 at 18:00 Vancomycin HCl 1.25 gm/Sodium Chloride 250 ml @ 167 mls/hr Q24H IV Last administered on 09/28/19at 12:20; Start 09/27/19 at 12:00; Stop 09/28/19 at 15:00; Status DC Vancomycin HCl (Vancomycin Trough Level) 1 each 1X ONCE MC Last administered on 09/28/19at 11:30; Start 09/28/19 at 11:30; Stop 09/28/19 at 11:31; Status DC Methylprednisolone Sodium Succinate (SOLU-Medrol 40MG VIAL) 80 mg Q8HRS IV Last administered on 09/28/19at 15:33; Start 09/26/19 at 22:00 Non-Formulary Medication 1 ea/ Sodium Chloride 250 ml @ 500 mls/hr 1X ONCE IV Last administered on 09/26/19at 21:50; Start 09/26/19 at 21:00; Stop 09/26/19 at 21:29; Status DC Non-Formulary Medication 1 ea/ Sodium Chloride 250 ml @ 500 mls/hr Q24H IV Last administered on 09/28/19at 09:10; Start 09/27/19 at 09:00; Stop 09/30/19 at 09:29 Amino Acids/ Glycerin/ Electrolytes 1,000 ml @ 80 mls/hr [id number] IV Last administered on 09/28/19at 12:21; Start 09/27/19 at 11:00 Insulin Human Lispro (HumaLOG) 0-7 UNITS TIDWMEALS SQ Last administered on 09/28/19at 08:32; Start 09/27/19 at 14:00 Dextrose (Dextrose 50%-Water Syringe) 12.5 gm PRN Q15MIN PRN IV SEE COMMENTS; Start 09/27/19 at 13:30 Dexmedetomidine HCl 400 mcg/ Sodium Chloride 100 ml @ 0 mls/hr CONT PRN IV SEE COMMENTS Last administered on 09/28/19at 09:10; Start 09/28/19 at 07:30 Sodium Chloride 500 ml @ 500 mls/hr 1X PRN PRN IV HYPOTENSION; Start 09/28/19 at 07:15 Atropine Sulfate (ATROPINE 0.5mg SYRINGE) 0.5 mg PRN Q5MIN PRN IV SEE COMMENTS; Start 09/28/19 at 07:15 Ondansetron HCl (Zofran) 4 mg STK-MED ONCE .ROUTE ; Start 09/28/19 at 10:33; Stop 09/28/19 at 10:33; Status DC Dopamine HCl/ Dextrose 250 ml @ 17.175 mls/ hr CONT PRN IV SEE I/O RECORD Last administered on 09/28/19at 10:53; Start 09/28/19 at 11:00 Dopamine HCl/ Dextrose 250 ml @ 17.175 mls/ hr CONT PRN IV SEE I/O RECORD; Start 09/28/19 at 11:00; Status UNV Ringer's Solution 1,000 ml @ 100 mls/hr Q10H IV Last administered on 09/28/19at 12:20; Start 09/28/19 at 13:00 Potassium Chloride/Water 100 ml @ 100 mls/hr Q1H IV Last administered on 09/28/19at 15:31; Start 09/28/19 at 13:00; Stop 09/28/19 at 14:59; Status DC Vancomycin HCl 1.5 gm/Sodium Chloride 500 ml @ 250 mls/hr Q18H IV ; Start 09/29/19 at 02:00 Vancomycin HCl (Vancomycin Trough Level) 1 each 1X ONCE MC ; Start 09/30/19 at 13:30; Stop 09/30/19 at 13:31 Active Scripts Active Reported Artificial Tears (Polyvinyl Alcohol) 15 Ml Drops 2 Drop EACHEYE QID 20 Days Ibuprofen 400 Mg Tablet 400 Mg PO PRN Q6HRS PRN Tylophen (Acetaminophen) 500 Mg Capsule 500 Mg PO PRN Q6-8HRS Vitals/I & O Vital Sign - Last 24 Hours 09/27/19 09/27/19 09/27/19 09/27/19 16:00 16:00 17:00 18:02 Temp 98.9 98.9 Pulse 75 76 77 Resp 20 22 22 B/P (MAP) 102/54 (70) 104/51 (68) 99/56 (70) Pulse Ox 90 89 90 O2 Delivery Nasal Cannula vapotherm vapotherm vapotherm O2 Flow Rate 40.0 40.0 40.0 40.0 09/27/19 09/27/19 09/27/19 09/27/19 19:00 20:00 20:00 20:29 Temp 98.6 98.6 Pulse 80 76 Resp 22 24 B/P (MAP) 91/48 (62) 108/53 (71) Pulse Ox 91 89 89 O2 Delivery vapotherm Nasal Cannula vapotherm VapoTherm O2 Flow Rate 40.0 40.0 40.0 40.0 09/27/19 09/27/19 09/27/19 09/27/19 21:00 21:43 22:00 22:38 Temp 99.5 99.5 Pulse 76 70 70 Resp 24 22 24 B/P (MAP) 104/51 (68) 112/55 (74) 113/61 Pulse Ox 85 94 94 O2 Delivery vapotherm BiPAP/CPAP BiPAP/CPAP O2 Flow Rate 40.0 09/27/19 09/27/19 09/28/19 09/28/19 23:00 23:38 00:00 00:00 Temp 97.9 97.9 97.9 97.9 Pulse 73 88 72 Resp 24 36 24 B/P (MAP) 110/59 (76) 109/69 109/69 (82) Pulse Ox 90 92 O2 Delivery BiPAP/CPAP BiPAP/CPAP Bi-pap 09/28/19 09/28/19 09/28/19 09/28/19 00:37 00:38 01:00 01:28 Temp 98.7 98.1 98.7 98.1 Pulse 84 89 88 Resp 32 32 24 B/P (MAP) 106/64 111/73 (86) 102/58 Pulse Ox 90 91 O2 Delivery BiPAP/CPAP BiPAP/CPAP 09/28/19 09/28/19 09/28/19 09/28/19 02:00 02:28 03:00 04:00 Temp 98.7 98.7 Pulse 80 86 73 Resp 24 24 24 B/P (MAP) 107/64 (78) 107/64 111/78 (89) Pulse Ox 92 93 O2 Delivery BiPAP/CPAP BiPAP/CPAP Bi-pap 09/28/19 09/28/19 09/28/19 09/28/19 04:00 04:29 05:00 06:00 Temp 98.9 98.9 Pulse 80 74 82 Resp 24 24 24 B/P (MAP) 101/56 (71) 94/51 (65) 106/52 (70) Pulse Ox 93 90 91 94 O2 Delivery BiPAP/CPAP BiPAP/CPAP BiPAP/CPAP BiPAP/CPAP 09/28/19 09/28/19 09/28/19 09/28/19 07:00 07:30 08:00 08:00 Temp 97.7 97.7 Pulse 78 80 Resp 24 24 B/P (MAP) 112/59 (76) 75/46 (56) Pulse Ox 94 92 90 O2 Delivery BiPAP/CPAP BiPAP/CPAP Nasal Cannula Vapotherm O2 Flow Rate 40.0 40.0 09/28/19 09/28/19 09/28/19 09/28/19 09:00 10:00 11:00 11:18 Pulse 60 60 88 Resp 26 26 26 B/P (MAP) 78/47 (57) 83/53 (63) 83/53 (63) Pulse Ox 89 92 75 88 O2 Delivery Vapotherm Vapotherm Vapotherm BiPAP/CPAP O2 Flow Rate 40.0 40.0 40.0 09/28/19 09/28/19 09/28/19 09/28/19 11:25 12:00 12:00 13:00 Temp 97.5 97.5 Pulse 86 76 Resp 24 26 B/P (MAP) 119/56 (77) 118/59 (78) Pulse Ox 85 81 78 O2 Delivery vapo therm Nasal Cannula Vapotherm Vapotherm O2 Flow Rate 40.0 40.0 40.0 09/28/19 09/28/19 09/28/19 14:00 15:00 15:22 Pulse 76 96 Resp 22 30 B/P (MAP) 118/58 (78) 117/58 (77) Pulse Ox 81 82 82 O2 Delivery Vapotherm Vapotherm vapo therm O2 Flow Rate 40.0 40.0 Intake and Output 09/27/19 09/27/19 09/28/19 15:00 23:00 07:00 Intake Total 500 ml 1819 ml 956 ml Output Total 600 ml 410 ml 360 ml Balance -100 ml 1409 ml 596 ml Nutrition Consultation Dietary Evaluation: Recommendations by RD: Dietary education by RD, Increase Calorie Intake, Protein supplementation, PPN/TPN Comments: Continue w/PPN for short-term non-oral nutrition needs REC diet as able pending respiratory needs, goal diet regular w/Ensure supplements prn/as able Expected Outcomes/Goals: diet advancement Malnutrition Findings: Body Fat Depletion (Non Severe: Mild Depletion Weight Status: Overweight Justicifation of Admission Dx: Justifications for Admission: Justification of Admission Dx: Yes Aspiration Pneumonia: Hypoxemia RYANNE SULLIVAN MD Sep 28, 2019 16:00
[2019-09-28] MEDS: STERILE WATER for RESP 1,000 ML BAG. INH PRN (19:56)
[2019-09-29] VITALS (21 sets, daily range): BP systolic 98–143; BP diastolic 51–73
[2019-09-29] MEDS: PIPERACILLIN/TAZOBACTAM 3.375 GM in IV NORMAL SALINE 50ML 50 ML IV SCH ×5 (00:21→23:51)
[2019-09-29] MEDS: AMINO AC 3%/ELECTROLYTE/GLYCER 1,000 ML IV SCH ×2 (00:21→10:22)
--- NOTE | 2019-09-29 01:28 | NUR ---
Attempted to start a second IV to administer PPN. Attempted X1 then patient refused further attempts stating he didn't want anymore sticks. Educated the need for a second IV, pt continued to refuse.
[2019-09-29] MEDS: IV RINGERS,LACTATED 1000ML 1,000 ML IV SCH ×2 (03:41→20:28)
[2019-09-29] MEDS: VANCOMYCIN 1.5 GM in IV NORMAL SALINE 500ML BAG 500 ML IV SCH ×2 (03:43→20:08)
[2019-09-29 06:23] LABS: BASO % 0 % (0-3); EOS % 0 % (0-3); HEMATOCRIT 39.8 % (39.0-53.0); HEMOGLOBIN 13.6 g/dL (13.0-17.5); LYMPH # 0.3 x10^3/uL (1.0-4.8); LYMPH % 3 % (24-48); MEAN CORPUSCULAR HEMOGLOBIN 34 pg (25-35); MEAN CORPUSCULAR HGB CONC 34 g/dL (31-37); MEAN CORPUSCULAR VOLUME 100 fL (79-100); MONO # 0.4 x10^3/uL (0.0-1.1); MONO % 4 % (0-9); NEUT # 10.4 x10^3/uL (1.8-7.7); NEUT % 93 % (31-73); PLATELET COUNT 239 x10^3/uL (140-400); RED BLOOD COUNT 3.97 x10^6/uL (4.30-5.70); RED CELL DISTRIBUTION WIDTH 15.2 % (11.5-14.5); WHITE BLOOD COUNT 11.2 x10^3/uL (4.0-11.0)
[2019-09-29] MEDS: methylPREDNISolone SOD SUCC PF 40 MG/ML VIAL. IV SCH ×4 (06:39→21:57)
[2019-09-29] MEDS: STERILE WATER for RESP 1,000 ML BAG. INH PRN (07:04)
--- NOTE | 2019-09-29 07:45 | PDOC ---
PULMONARY PROGRESS NOTES Subjective Patient remains on Vapotherm at 40 L and 100% Also on dopamine No overnight concerns per nursing, refusing arterial blood gas this morning Vitals Vital Signs Date Time Temp Pulse Resp B/P (MAP) Pulse Ox O2 Delivery O2 Flow Rate FiO2 09/29/19 07:05 82 VapoTherm 40.0 09/29/19 06:00 88 28 116/67 (83) 09/29/19 04:00 99.0 99.0 ROS: No Nausea, No Chest Pain, No Abdominal Pain, No Increase Cough General: Alert Lungs: Crackles Cardiovascular: S1, S2 Abdomen: Soft Neuro Exam: Alert Extremities: Other (Mild edema) Skin: Warm Labs Laboratory Tests Test 09/27/19 13:05 09/27/19 17:41 09/28/19 03:40 09/28/19 07:40 O2 Saturation 92 % (92-99) 93 % (92-99) Arterial Blood pH 7.43 (7.35-7.45) 7.45 (7.35-7.45) Arterial Blood pCO2 at Patient Temp 23 mmHg (35-46) 29 mmHg (35-46) Arterial Blood pO2 at Patient Temp 67 mmHg (65-108) 69 mmHg (65-108) Arterial Blood HCO3 15 mmol/L (21-28) 19 mmol/L (21-28) Arterial Blood Base Excess -8 mmol/L (-3-3) -4 mmol/L (-3-3) FiO2 100 100% Glucose (Fingerstick) 153 mg/dL (70-99) White Blood Count 8.7 x10^3/uL (4.0-11.0) Red Blood Count 3.73 x10^6/uL (4.30-5.70) Hemoglobin 12.6 g/dL (13.0-17.5) Hematocrit 37.0 % (39.0-53.0) Mean Corpuscular Volume 99 fL (79-100) Mean Corpuscular Hemoglobin 34 pg (25-35) Mean Corpuscular Hemoglobin Concent 34 g/dL (31-37) Red Cell Distribution Width 15.4 % (11.5-14.5) Platelet Count 170 x10^3/uL (140-400) Neutrophils (%) (Auto) 91 % (31-73) Lymphocytes (%) (Auto) 5 % (24-48) Monocytes (%) (Auto) 4 % (0-9) Eosinophils (%) (Auto) 0 % (0-3) Basophils (%) (Auto) 0 % (0-3) Neutrophils # (Auto) 7.9 x10^3/uL (1.8-7.7) Lymphocytes # (Auto) 0.4 x10^3/uL (1.0-4.8) Monocytes # (Auto) 0.3 x10^3/uL (0.0-1.1) Eosinophils # (Auto) 0.0 x10^3/uL (0.0-0.7) Basophils # (Auto) 0.0 x10^3/uL (0.0-0.2) Sodium Level 150 mmol/L (136-145) Potassium Level 3.4 mmol/L (3.5-5.1) Chloride Level 115 mmol/L (98-107) Carbon Dioxide Level 25 mmol/L (21-32) Anion Gap 10 (6-14) Blood Urea Nitrogen 41 mg/dL (8-26) Creatinine 1.4 mg/dL (0.7-1.3) Estimated GFR (Cockcroft-Gault) 48.9 BUN/Creatinine Ratio 29 (6-20) Glucose Level 212 mg/dL (70-99) Calcium Level 7.7 mg/dL (8.5-10.1) Magnesium Level 2.4 mg/dL (1.8-2.4) Total Bilirubin 0.5 mg/dL (0.2-1.0) Aspartate Amino Transf (AST/SGOT) 76 U/L (15-37) Alanine Aminotransferase (ALT/SGPT) 52 U/L (16-63) Alkaline Phosphatase 45 U/L (46-116) Total Protein 5.8 g/dL (6.4-8.2) Albumin 2.1 g/dL (3.4-5.0) Albumin/Globulin Ratio 0.6 (1.0-1.7) Test 09/28/19 10:30 09/28/19 11:40 09/28/19 17:56 09/29/19 05:55 Glucose (Fingerstick) 192 mg/dL (70-99) 214 mg/dL (70-99) Vancomycin Level Trough 6.7 mcg/mL (10.0-20.0) Vancomycin Last Dose Date 10/15/2019 Vancomycin Last Dose Time 1200 White Blood Count 11.2 x10^3/uL (4.0-11.0) Red Blood Count 3.97 x10^6/uL (4.30-5.70) Hemoglobin 13.6 g/dL (13.0-17.5) Hematocrit 39.8 % (39.0-53.0) Mean Corpuscular Volume 100 fL (79-100) Mean Corpuscular Hemoglobin 34 pg (25-35) Mean Corpuscular Hemoglobin Concent 34 g/dL (31-37) Red Cell Distribution Width 15.2 % (11.5-14.5) Platelet Count 239 x10^3/uL (140-400) Neutrophils (%) (Auto) 93 % (31-73) Lymphocytes (%) (Auto) 3 % (24-48) Monocytes (%) (Auto) 4 % (0-9) Eosinophils (%) (Auto) 0 % (0-3) Basophils (%) (Auto) 0 % (0-3) Neutrophils # (Auto) 10.4 x10^3/uL (1.8-7.7) Lymphocytes # (Auto) 0.3 x10^3/uL (1.0-4.8) Monocytes # (Auto) 0.4 x10^3/uL (0.0-1.1) Eosinophils # (Auto) 0.0 x10^3/uL (0.0-0.7) Basophils # (Auto) 0.0 x10^3/uL (0.0-0.2) Laboratory Tests Test 09/28/19 10:30 09/28/19 11:40 09/28/19 17:56 09/29/19 05:55 Glucose (Fingerstick) 192 mg/dL (70-99) 214 mg/dL (70-99) Vancomycin Level Trough 6.7 mcg/mL (10.0-20.0) Vancomycin Last Dose Date 10/15/2019 Vancomycin Last Dose Time 1200 White Blood Count 11.2 x10^3/uL (4.0-11.0) Red Blood Count 3.97 x10^6/uL (4.30-5.70) Hemoglobin 13.6 g/dL (13.0-17.5) Hematocrit 39.8 % (39.0-53.0) Mean Corpuscular Volume 100 fL (79-100) Mean Corpuscular Hemoglobin 34 pg (25-35) Mean Corpuscular Hemoglobin Concent 34 g/dL (31-37) Red Cell Distribution Width 15.2 % (11.5-14.5) Platelet Count 239 x10^3/uL (140-400) Neutrophils (%) (Auto) 93 % (31-73) Lymphocytes (%) (Auto) 3 % (24-48) Monocytes (%) (Auto) 4 % (0-9) Eosinophils (%) (Auto) 0 % (0-3) Basophils (%) (Auto) 0 % (0-3) Neutrophils # (Auto) 10.4 x10^3/uL (1.8-7.7) Lymphocytes # (Auto) 0.3 x10^3/uL (1.0-4.8) Monocytes # (Auto) 0.4 x10^3/uL (0.0-1.1) Eosinophils # (Auto) 0.0 x10^3/uL (0.0-0.7) Basophils # (Auto) 0.0 x10^3/uL (0.0-0.2) Medications Active Scripts Medications Dose Route/Sig Max Daily Dose Days Date Category Artificial Tears (Polyvinyl Alcohol) 15 Ml Drops 2 Drop EACHEYE QID 20 09/26/19 Reported Ibuprofen 400 Mg Tablet 400 Mg PO PRN Q6HRS PRN 09/26/19 Reported Tylophen (Acetaminophen) 500 Mg Capsule 500 Mg PO PRN Q6-8HRS 09/26/[address] chest Impression: Right posterior lower lung field consolidation. Extensive interstitial, groundglass infiltrates brandt. Enlarged right mediastinal and right hilar lymph nodes. Correlate for underlying infectious process. Follow-up to resolution is recommended to exclude underlying neoplastic etiology. Calculus at the gallbladder neck. Small hiatal hernia. CXR Impression: No focal infiltrate. Minimal left pleural effusion may be present. Impression . IMPRESSION: 1. Acute hypoxemic respiratory failure. 2. COVID-[address] angiogram, no evidence of pulmonary embolism. 4. Abnormal CT angiogram revealing bilateral ground glass opacities and infiltrates compatible with viral pneumonia. 5. Metabolic toxic encephalopathy-- improving 6. History of dementia. 7. Hypertension. 8. Hypotension related to COVID-19. 9. Sepsis. 10 dysphagia, patient wanting pleasure feeding Plan . Continue current supplemental oxygenation with Vapotherm at 40 L and 100%. Continue pleasure feeding despite possible aspiration cont. IVF cont. vasopressors as needed for MAP greater than 60 Empiric antibiotic Remdesivir continue Status post convalescent serum--09/27/2019 GI/DVT prophylaxis Discussed with RN and RT Total cumulative critical care time of 30 minutes reviewing data, labs, chest x-ray, and formulating a plan. DNR/DNI AALIYAH PINEDA MD Sep 29, 2019 07:45
[2019-09-29] MEDS: INSULIN LISPRO 300 UNITS/3 ML VIAL. SQ SCH ×3 (08:00→17:55)
[2019-09-29] MEDS: VITAMIN B12,B9,B6 COMPLEX 1 TABLET. PO SCH (09:00)
[2019-09-29] MEDS: BENZONATATE 100 MG CAPSULE. PO SCH ×3 (09:00→21:00)
[2019-09-29] MEDS: ENOXAPARIN 40 MG/0.4 ML SYRINGE. SQ SCH (09:00)
[2019-09-29] MEDS: ZINC SULFATE 220 MG CAPSULE. PO SCH (09:00)
[2019-09-29] MEDS: ASCORBIC ACID 500 MG TABLET PO SCH (09:00)
[2019-09-29] MEDS: CHOLECALCIFEROL (VITAMIN D3) 5,000 UNIT CAPSULE PO SCH (09:00)
[2019-09-29] MEDS: NON FORMULARY ITEM 1 EA in IV NORMAL SALINE 250ML 250 ML IV SCH (09:18)
--- NOTE | 2019-09-29 09:41 | PDOC2 ---
CONSULT Date of Consult Date of Consult DATE: 09/29/19 TIME: 09:40 Reason for Consult Reason for Consult: Tachycardia Referring Physician Referring Physician: Dr. Freeman Identification/Chief Complaint Chief Complaint Shortness of breath Source Source: Chart review, Patient History of Present Illness Reason for Visit: 79-year-old male was transferred via ED from [facility] unit with shortness of breath, hypoxia and altered mental status. Patient complained of cough and nausea but denied any chest pain, palpitations or syncope. Telemetry showed few episodes of tachycardia, most probably atrial fibrillation prompting cardiology consultation. Patient does not have any previous history of cardiac arrhythmias. Past Medical History Cardiovascular: HTN CENTRAL NERVOUS SYSTEM: Dementia GI: GERD Renal/: No pertinent hx Endocrine: No pertinent hx Dermatology: No pertinent hx Past Surgical History Past Surgical History: No pertinent history Family History Family History: Alzheimer's Disease Social History No ALCOHOL: none Drugs: None Current Problem List Problem List Problems Medical Problems: (1) Acute respiratory failure with hypoxia Status: Acute (2) COVID-19 Status: Acute (3) HCAP (healthcare-associated pneumonia) Status: Acute (4) Renal insufficiency Status: Acute (5) Severe sepsis Status: Acute Current Medications Current Medications Current Medications Piperacillin Sod/ Tazobactam Sod 4.5 gm/Sodium Chloride 100 ml @ 200 mls/hr 1X ONCE IV Last administered on 09/26/19at 11:03; Start 09/26/19 at 11:00; Stop 09/26/19 at 11:29; Status DC Vancomycin HCl (Vanco Per Pharmacy) 1 each 1X ONCE MC Last administered on 09/26/19at 11:00; Start 09/26/19 at 11:00; Stop 09/26/19 at 15:59; Status DC Sodium Chloride 1,000 ml @ 1,000 mls/hr 1X ONCE IV Last administered on 09/26/19at 11:02; Start 09/26/19 at 11:00; Stop 09/26/19 at 11:59; Status DC Sodium Chloride 1,000 ml @ 1,000 mls/hr 1X ONCE IV Last administered on 09/26/19at 11:03; Start 09/26/19 at 11:00; Stop 09/26/19 at 11:59; Status DC Sterile Water (WATER for RESP) 1,000 ml CONT PRN INH VIA VAPOTHERM DEVICE Last administered on 09/29/19at 07:04; Start 09/26/19 at 11:00 Vancomycin HCl 2 gm/Sodium Chloride 500 ml @ 250 mls/hr 1X ONCE IV Last admin istered on 09/26/19at 11:47; Start 09/26/19 at 11:30; Stop 09/26/19 at 13:29; Status DC Iohexol (Omnipaque 350 Mg/ml) 90 ml 1X ONCE IV Last administered on 09/26/19at 11:45; Start 09/26/19 at 11:45; Stop 09/26/19 at 11:46; Status DC Info (CONTRAST GIVEN -- Rx MONITORING) 1 each PRN DAILY PRN MC SEE COMMENTS; Start 09/26/19 at 11:45; Stop 09/28/19 at 11:44; Status DC Enoxaparin Sodium (Lovenox Per Pharmacy Prophylaxis Dosing) 1 each PRN DAILY PRN MC SEE COMMENTS; Start 09/26/19 at 14:30 Enoxaparin Sodium (Lovenox 40mg Syringe) 40 mg BID SQ Last administered on 09/28/19at 21:24; Start 09/26/19 at 15:00 Benzonatate (Tessalon Perle) 100 mg [id number] PO Last administered on 09/27/19at 21:50; Start 09/26/19 at 21:00 Zinc Sulfate (Orazinc) 220 mg DAILY PO Last administered on 09/27/19at 08:16; Start 09/27/19 at 09:00 Ascorbic Acid (Vitamin C) 500 mg DAILY PO Last administered on 09/27/19at 08:16; Start 09/27/19 at 09:00 Vitamin D (Vitamin D3) 5,000 unit DAILY PO Last administered on 09/27/19at 08:16; Start 09/27/19 at 09:00 Vitamin B Complex (Folbic Tablet) 1 tab DAILY PO ; Start 09/27/19 at 09:00 Vancomycin HCl (Vanco Per Pharmacy) 1 each PRN DAILY PRN MC SEE COMMENTS Last administered on 09/28/19at 12:38; Start 09/26/19 at 17:30 Piperacillin Sod/ Tazobactam Sod (Zosyn Per Pharmacy) 1 each PRN DAILY PRN MC SEE COMMENTS; Start 09/26/19 at 17:30 Sodium Chloride 1,000 ml @ 100 mls/hr Q10H IV Last administered on 09/28/19at 10:52; Start 09/26/19 at 17:30; Stop 09/28/19 at 12:00; Status DC Piperacillin Sod/ Tazobactam Sod 3.375 gm/Sodium Chloride 50 ml @ 100 mls/hr Q6HRS IV Last administered on 09/29/19at 06:38; Start 09/26/19 at 18:00 Vancomycin HCl 1.25 gm/Sodium Chloride 250 ml @ 167 mls/hr Q24H IV Last administered on 09/28/19at 12:20; Start 09/27/19 at 12:00; Stop 09/28/19 at 15:00; Status DC Vancomycin HCl (Vancomycin Trough Level) 1 each 1X ONCE MC Last administered on 09/28/19at 11:30; Start 09/28/19 at 11:30; Stop 09/28/19 at 11:31; Status DC Methylprednisolone Sodium Succinate (SOLU-Medrol 40MG VIAL) 80 mg Q8HRS IV Last administered on 09/29/19at 06:39; Start 09/26/19 at 22:00 Non-Formulary Medication 1 ea/ Sodium Chloride 250 ml @ 500 mls/hr 1X ONCE IV Last administered on 09/26/19at 21:50; Start 09/26/19 at 21:00; Stop 09/26/19 at 21:29; Status DC Non-Formulary Medication 1 ea/ Sodium Chloride 250 ml @ 500 mls/hr Q24H IV Last administered on 09/29/19at 09:18; Start 09/27/19 at 09:00; Stop 09/30/19 at 09:29 Amino Acids/ Glycerin/ Electrolytes 1,000 ml @ 80 mls/hr [id number] IV Last administered on 09/28/19at 12:21; Start 09/27/19 at 11:00 Insulin Human Lispro (HumaLOG) 0-7 UNITS TIDWMEALS SQ Last administered on 09/28/19at 18:18; Start 09/27/19 at 14:00 Dextrose (Dextrose 50%-Water Syringe) 12.5 gm PRN Q15MIN PRN IV SEE COMMENTS; Start 09/27/19 at 13:30 Dexmedetomidine HCl 400 mcg/ Sodium Chloride 100 ml @ 0 mls/hr CONT PRN IV SEE COMMENTS Last administered on 09/28/19at 09:10; Start 09/28/19 at 07:30 Sodium Chloride 500 ml @ 500 mls/hr 1X PRN PRN IV HYPOTENSION; Start 09/28/19 at 07:15 Atropine Sulfate (ATROPINE 0.5mg SYRINGE) 0.5 mg PRN Q5MIN PRN IV SEE COMMENTS; Start 09/28/19 at 07:15 Ondansetron HCl (Zofran) 4 mg STK-MED ONCE .ROUTE ; Start 09/28/19 at 10:33; Stop 09/28/19 at 10:33; Status DC Dopamine HCl/ Dextrose 250 ml @ 17.175 mls/ hr CONT PRN IV SEE I/O RECORD Last administered on 09/29/19at 00:21; Start 09/28/19 at 11:00 Dopamine HCl/ Dextrose 250 ml @ 17.175 mls/ hr CONT PRN IV SEE I/O RECORD; Start 09/28/19 at 11:00; Status UNV Ringer's Solution 1,000 ml @ 100 mls/hr Q10H IV Last administered on 09/29/19at 03:41; Start 09/28/19 at 13:00 Potassium Chloride/Water 100 ml @ 100 mls/hr Q1H IV Last administered on 09/28/19at 15:31; Start 09/28/19 at 13:00; Stop 09/28/19 at 14:59; Status DC Vancomycin HCl 1.5 gm/Sodium Chloride 500 ml @ 250 mls/hr Q18H IV Last administered on 09/29/19at 03:43; Start 09/29/19 at 02:00 Vancomycin HCl (Vancomycin Trough Level) 1 each 1X ONCE MC ; Start 09/30/19 at 13:30; Stop 09/30/19 at 13:31 Active Scripts Active Reported Artificial Tears (Polyvinyl Alcohol) 15 Ml Drops 2 Drop EACHEYE QID 20 Days Ibuprofen 400 Mg Tablet 400 Mg PO PRN Q6HRS PRN Tylophen (Acetaminophen) 500 Mg Capsule 500 Mg PO PRN Q6-8HRS Allergies Allergies: Coded Allergies: No Known Drug Allergies (Unverified , 09/26/19) ROS PSYCHOLOGICAL ROS: No: Hallucinations Eyes: No Loss of vision HEENT: No: Epistaxis Respiratory: YES: Cough, Shortness of breath Cardiovascular: No Chest Pain, No Palpitations Gastrointestinal: No Vomiting Genitourinary: No Hematuria Neurological: No Seizures Skin: No Rash Physical Exam General: Alert, mild distress HEENT: Atraumatic Lungs: Other (Scattered crepitations bilaterally) Heart: Regular rate Abdomen: Soft Extremities: Other (1+ pitting) Psych/Mental Status: Mood NL Vitals VITALS Vital Signs Date Time Temp Pulse Resp B/P (MAP) Pulse Ox O2 Delivery O2 Flow Rate FiO2 09/29/19 07:05 82 VapoTherm 40.0 09/29/19 06:00 88 28 116/67 (83) 09/29/19 04:00 99.0 99.0 Labs Labs Laboratory Tests Test 09/27/19 13:05 09/27/19 17:41 09/28/19 03:40 09/28/19 07:40 O2 Saturation 92 % (92-99) 93 % (92-99) Arterial Blood pH 7.43 (7.35-7.45) 7.45 (7.35-7.45) Arterial Blood pCO2 at Patient Temp 23 mmHg (35-46) 29 mmHg (35-46) Arterial Blood pO2 at Patient Temp 67 mmHg (65-108) 69 mmHg (65-108) Arterial Blood HCO3 15 mmol/L (21-28) 19 mmol/L (21-28) Arterial Blood Base Excess -8 mmol/L (-3-3) -4 mmol/L (-3-3) FiO2 100 100% Glucose (Fingerstick) 153 mg/dL (70-99) White Blood Count 8.7 x10^3/uL (4.0-11.0) Red Blood Count 3.73 x10^6/uL (4.30-5.70) Hemoglobin 12.6 g/dL (13.0-17.5) Hematocrit 37.0 % (39.0-53.0) Mean Corpuscular Volume 99 fL (79-100) Mean Corpuscular Hemoglobin 34 pg (25-35) Mean Corpuscular Hemoglobin Concent 34 g/dL (31-37) Red Cell Distribution Width 15.4 % (11.5-14.5) Platelet Count 170 x10^3/uL (140-400) Neutrophils (%) (Auto) 91 % (31-73) Lymphocytes (%) (Auto) 5 % (24-48) Monocytes (%) (Auto) 4 % (0-9) Eosinophils (%) (Auto) 0 % (0-3) Basophils (%) (Auto) 0 % (0-3) Neutrophils # (Auto) 7.9 x10^3/uL (1.8-7.7) Lymphocytes # (Auto) 0.4 x10^3/uL (1.0-4.8) Monocytes # (Auto) 0.3 x10^3/uL (0.0-1.1) Eosinophils # (Auto) 0.0 x10^3/uL (0.0-0.7) Basophils # (Auto) 0.0 x10^3/uL (0.0-0.2) Sodium Level 150 mmol/L (136-145) Potassium Level 3.4 mmol/L (3.5-5.1) Chloride Level 115 mmol/L (98-107) Carbon Dioxide Level 25 mmol/L (21-32) Anion Gap 10 (6-14) Blood Urea Nitrogen 41 mg/dL (8-26) Creatinine 1.4 mg/dL (0.7-1.3) Estimated GFR (Cockcroft-Gault) 48.9 BUN/Creatinine Ratio 29 (6-20) Glucose Level 212 mg/dL (70-99) Calcium Level 7.7 mg/dL (8.5-10.1) Magnesium Level 2.4 mg/dL (1.8-2.4) Total Bilirubin 0.5 mg/dL (0.2-1.0) Aspartate Amino Transf (AST/SGOT) 76 U/L (15-37) Alanine Aminotransferase (ALT/SGPT) 52 U/L (16-63) Alkaline Phosphatase 45 U/L (46-116) Total Protein 5.8 g/dL (6.4-8.2) Albumin 2.1 g/dL (3.4-5.0) Albumin/Globulin Ratio 0.6 (1.0-1.7) Test 09/28/19 10:30 09/28/19 11:40 09/28/19 17:56 09/29/19 05:55 Glucose (Fingerstick) 192 mg/dL (70-99) 214 mg/dL (70-99) Vancomycin Level Trough 6.7 mcg/mL (10.0-20.0) Vancomycin Last Dose Date 10/15/2019 Vancomycin Last Dose Time 1200 White Blood Count 11.2 x10^3/uL (4.0-11.0) Red Blood Count 3.97 x10^6/uL (4.30-5.70) Hemoglobin 13.6 g/dL (13.0-17.5) Hematocrit 39.8 % (39.0-53.0) Mean Corpuscular Volume 100 fL (79-100) Mean Corpuscular Hemoglobin 34 pg (25-35) Mean Corpuscular Hemoglobin Concent 34 g/dL (31-37) Red Cell Distribution Width 15.2 % (11.5-14.5) Platelet Count 239 x10^3/uL (140-400) Neutrophils (%) (Auto) 93 % (31-73) Lymphocytes (%) (Auto) 3 % (24-48) Monocytes (%) (Auto) 4 % (0-9) Eosinophils (%) (Auto) 0 % (0-3) Basophils (%) (Auto) 0 % (0-3) Neutrophils # (Auto) 10.4 x10^3/uL (1.8-7.7) Lymphocytes # (Auto) 0.3 x10^3/uL (1.0-4.8) Monocytes # (Auto) 0.4 x10^3/uL (0.0-1.1) Eosinophils # (Auto) 0.0 x10^3/uL (0.0-0.7) Basophils # (Auto) 0.0 x10^3/uL (0.0-0.2) Laboratory Tests Test 09/28/19 10:30 09/28/19 11:40 09/28/19 17:56 09/29/19 05:55 Glucose (Fingerstick) 192 mg/dL (70-99) 214 mg/dL (70-99) Vancomycin Level Trough 6.7 mcg/mL (10.0-20.0) Vancomycin Last Dose Date 10/15/2019 Vancomycin Last Dose Time 1200 White Blood Count 11.2 x10^3/uL (4.0-11.0) Red Blood Count 3.97 x10^6/uL (4.30-5.70) Hemoglobin 13.6 g/dL (13.0-17.5) Hematocrit 39.8 % (39.0-53.0) Mean Corpuscular Volume 100 fL (79-100) Mean Corpuscular Hemoglobin 34 pg (25-35) Mean Corpuscular Hemoglobin Concent 34 g/dL (31-37) Red Cell Distribution Width 15.2 % (11.5-14.5) Platelet Count 239 x10^3/uL (140-400) Neutrophils (%) (Auto) 93 % (31-73) Lymphocytes (%) (Auto) 3 % (24-48) Monocytes (%) (Auto) 4 % (0-9) Eosinophils (%) (Auto) 0 % (0-3) Basophils (%) (Auto) 0 % (0-3) Neutrophils # (Auto) 10.4 x10^3/uL (1.8-7.7) Lymphocytes # (Auto) 0.3 x10^3/uL (1.0-4.8) Monocytes # (Auto) 0.4 x10^3/uL (0.0-1.1) Eosinophils # (Auto) 0.0 x10^3/uL (0.0-0.7) Basophils # (Auto) 0.0 x10^3/uL (0.0-0.2) Assessment/Plan Assessment/Plan 1. Acute hypoxic respiratory failure, most probably COVID-19 viral pneumonia per pulmonary team, based on CT findings. PE ruled out. s/p convalescent serum 09/27/19. Continue Remdecivir. 2. Sepsis and hypotension: Continue antibiotics per ID team 3. Paroxysmal atrial fibrillation, probably precipitated by respiratory failure and sepsis. He is presently back in sinus rhythm. We will start beta-blockers once patient is off dopamine infusion. We will check 2D echocardiogram at a later date. 4. Metabolic encephalopathy, improving Thank you for your consultation DARIUSZ STEVENS MD Sep 29, 2019 09:40
--- NOTE | 2019-09-29 10:23 | NUR ---
pT REFUSED ANOTHER iv TO BE RESTARTED NO PROCOLAMINE RUNNING WELL REFUSED ALL MEDS THIS SHIFT WITH THE EXCEPTIONS OF THE HANGING IV IS ALREADY RUNNING. PT REFUSED LAB DRAWS, INSULIN AND LOVENOX.
[2019-09-29] MEDS: VANCOMYCIN PER PHARMACY MC PRN (13:12)
[2019-09-30] VITALS (24 sets, daily range): BP systolic 115–148; BP diastolic 52–83
[2019-09-30] MEDS: AMINO AC 3%/ELECTROLYTE/GLYCER 1,000 ML IV SCH ×2 (01:30→11:54)
[2019-09-30] MEDS: STERILE WATER for RESP 1,000 ML BAG. INH PRN ×2 (04:48→17:32)
[2019-09-30] MEDS: PIPERACILLIN/TAZOBACTAM 3.375 GM in IV NORMAL SALINE 50ML 50 ML IV SCH ×3 (06:17→18:15)
[2019-09-30] MEDS: methylPREDNISolone SOD SUCC PF 40 MG/ML VIAL. IV SCH ×3 (06:17→20:50)
[2019-09-30] MEDS: VITAMIN B12,B9,B6 COMPLEX 1 TABLET. PO SCH (07:18)
[2019-09-30] MEDS: CHOLECALCIFEROL (VITAMIN D3) 5,000 UNIT CAPSULE PO SCH (07:19)
[2019-09-30] MEDS: BENZONATATE 100 MG CAPSULE. PO SCH ×3 (07:19→19:25)
[2019-09-30] MEDS: ASCORBIC ACID 500 MG TABLET PO SCH (07:19)
[2019-09-30] MEDS: ZINC SULFATE 220 MG CAPSULE. PO SCH (07:19)
[2019-09-30] MEDS: INSULIN LISPRO 300 UNITS/3 ML VIAL. SQ SCH ×3 (08:00→17:00)
[2019-09-30] MEDS: NON FORMULARY ITEM 1 EA in IV NORMAL SALINE 250ML 250 ML IV SCH (09:01)
--- NOTE | 2019-09-30 09:31 | PDOC ---
PULMONARY PROGRESS NOTES Subjective Patient now on BIPAP continues on dopamine No overnight concerns per nursing Vitals Vital Signs Date Time Temp Pulse Resp B/P (MAP) Pulse Ox O2 Delivery O2 Flow Rate FiO2 09/30/19 09:00 80 140/83 (102) 95 BiPAP/CPAP 09/30/19 08:00 98.2 40.0 98.2 09/30/19 06:10 22 Comments Patient seen doing the COVID- pandemic, visual examination no respiratory distress in sync with the ventilator no significant edema Labs Laboratory Tests Test 09/28/19 10:30 09/28/19 11:40 09/28/19 17:56 09/29/19 05:55 Glucose (Fingerstick) 192 mg/dL (70-99) 214 mg/dL (70-99) Vancomycin Level Trough 6.7 mcg/mL (10.0-20.0) Vancomycin Last Dose Date 10/15/2019 Vancomycin Last Dose Time 1200 White Blood Count 11.2 x10^3/uL (4.0-11.0) Red Blood Count 3.97 x10^6/uL (4.30-5.70) Hemoglobin 13.6 g/dL (13.0-17.5) Hematocrit 39.8 % (39.0-53.0) Mean Corpuscular Volume 100 fL (79-100) Mean Corpuscular Hemoglobin 34 pg (25-35) Mean Corpuscular Hemoglobin Concent 34 g/dL (31-37) Red Cell Distribution Width 15.2 % (11.5-14.5) Platelet Count 239 x10^3/uL (140-400) Neutrophils (%) (Auto) 93 % (31-73) Lymphocytes (%) (Auto) 3 % (24-48) Monocytes (%) (Auto) 4 % (0-9) Eosinophils (%) (Auto) 0 % (0-3) Basophils (%) (Auto) 0 % (0-3) Neutrophils # (Auto) 10.4 x10^3/uL (1.8-7.7) Lymphocytes # (Auto) 0.3 x10^3/uL (1.0-4.8) Monocytes # (Auto) 0.4 x10^3/uL (0.0-1.1) Eosinophils # (Auto) 0.0 x10^3/uL (0.0-0.7) Basophils # (Auto) 0.0 x10^3/uL (0.0-0.2) Test 09/29/19 13:13 09/29/19 17:36 09/29/19 23:56 09/30/19 08:25 Glucose (Fingerstick) 191 mg/dL (70-99) 213 mg/dL (70-99) 165 mg/dL (70-99) 189 mg/dL (70-99) Laboratory Tests Test 09/29/19 13:13 09/29/19 17:36 09/29/19 23:56 09/30/19 08:25 Glucose (Fingerstick) 191 mg/dL (70-99) 213 mg/dL (70-99) 165 mg/dL (70-99) 189 mg/dL (70-99) Medications Active Scripts Medications Dose Route/Sig Max Daily Dose Days Date Category Artificial Tears (Polyvinyl Alcohol) 15 Ml Drops 2 Drop EACHEYE QID 20 09/26/19 Reported Ibuprofen 400 Mg Tablet 400 Mg PO PRN Q6HRS PRN 09/26/19 Reported Tylophen (Acetaminophen) 500 Mg Capsule 500 Mg PO PRN Q6-8HRS 09/26/[address] chest Impression: Right posterior lower lung field consolidation. Extensive interstitial, groundglass infiltrates brandt. Enlarged right mediastinal and right hilar lymph nodes. Correlate for underlying infectious process. Follow-up to resolution is recommended to exclude underlying neoplastic etiology. Calculus at the gallbladder neck. Small hiatal hernia. CXR Impression: No focal infiltrate. Minimal left pleural effusion may be present. Impression . IMPRESSION: 1. Acute hypoxemic respiratory failure. 2. COVID-[address] angiogram, no evidence of pulmonary embolism. 4. Abnormal CT angiogram revealing bilateral ground glass opacities and infiltrates compatible with viral pneumonia. 5. Metabolic toxic encephalopathy-- improving 6. History of dementia. 7. Hypertension. 8. Hypotension related to COVID-19. 9. Sepsis--improving 10 dysphagia, patient wanting pleasure feeding Plan . Case discussed with CHOKER HOOKER, RT, RN I had multiple conversations with the patient, he wishes to proceed with palliative care Continue current supplemental oxygenation now on BIPAP 16/4 at 100% Continue pleasure feeding despite possible aspiration cont. IVF cont. vasopressors as needed for MAP greater than 60-- on dopamine Cont. antibiotic S/P Remdesivir Status post convalescent serum--09/27/2019 GI/DVT prophylaxis Discussed with RN and RT Patient had a episode of profound hypoxemia and does not wish to wear the BiPAP anymore he wants to use the Vapotherm he was educated that he potentially could pass away if we did not treat his hypoxia efficiently and he is fine with that. He is a DNR/DNI. Total cumulative critical care time of 30 minutes reviewing data, labs, chest x-ray, and formulating a plan. DNR/DNI AALIYAH PINEDA MD Sep 30, 2019 09:31
--- NOTE | 2019-09-30 10:22 | PDOC ---
PROGRESS NOTES Chief Complaint Chief Complaint LATE entry, pt seen 7.4 in the ICU, continued the ICU care, he had been made DNR, doing OK, very weak, COVID-19, pos test 09/19 acute hypoxic respiratory faiulre severe sepsis pneumoniits, broad antibiotics, pneumonia and sepsis, acute renal failure, vasomotor, and acute rhabdomyolysis, admit chronic dementia with acute on chronic encephalopathy severe malnutrition, POA History of Present Illness History of Present Illness sometimes confused, not agitated, no event Vitals Vitals Vital Signs Date Time Temp Pulse Resp B/P (MAP) Pulse Ox O2 Delivery O2 Flow Rate FiO2 09/30/19 09:40 93 BiPAP/CPAP 09/30/19 09:00 80 140/83 (102) 09/30/19 08:00 98.2 40.0 98.2 09/30/19 06:10 22 Physical Exam General: Alert, mild distress Heart: Regular rate Abdomen: Soft Extremities: Other (1+ pitting) Skin: No rashes, No breakdown Labs LABS Laboratory Tests Test 09/29/19 13:13 09/29/19 17:36 09/29/19 23:56 09/30/19 08:25 Glucose (Fingerstick) 191 mg/dL (70-99) 213 mg/dL (70-99) 165 mg/dL (70-99) 189 mg/dL (70-99) Assessment and Plan Assessmemt and Plan Problems Medical Problems: (1) Acute respiratory failure with hypoxia Status: Acute (2) COVID-19 Status: Acute (3) HCAP (healthcare-associated pneumonia) Status: Acute (4) Renal insufficiency Status: Acute (5) Severe sepsis Status: Acute Comment Review of Relevant I have reviewed the following items cuco (where applicable) has been applied. Labs Laboratory Tests Test 09/28/19 10:30 09/28/19 11:40 09/28/19 17:56 09/29/19 05:55 Glucose (Fingerstick) 192 mg/dL (70-99) 214 mg/dL (70-99) Vancomycin Level Trough 6.7 mcg/mL (10.0-20.0) Vancomycin Last Dose Date 10/15/2019 Vancomycin Last Dose Time 1200 White Blood Count 11.2 x10^3/uL (4.0-11.0) Red Blood Count 3.97 x10^6/uL (4.30-5.70) Hemoglobin 13.6 g/dL (13.0-17.5) Hematocrit 39.8 % (39.0-53.0) Mean Corpuscular Volume 100 fL (79-100) Mean Corpuscular Hemoglobin 34 pg (25-35) Mean Corpuscular Hemoglobin Concent 34 g/dL (31-37) Red Cell Distribution Width 15.2 % (11.5-14.5) Platelet Count 239 x10^3/uL (140-400) Neutrophils (%) (Auto) 93 % (31-73) Lymphocytes (%) (Auto) 3 % (24-48) Monocytes (%) (Auto) 4 % (0-9) Eosinophils (%) (Auto) 0 % (0-3) Basophils (%) (Auto) 0 % (0-3) Neutrophils # (Auto) 10.4 x10^3/uL (1.8-7.7) Lymphocytes # (Auto) 0.3 x10^3/uL (1.0-4.8) Monocytes # (Auto) 0.4 x10^3/uL (0.0-1.1) Eosinophils # (Auto) 0.0 x10^3/uL (0.0-0.7) Basophils # (Auto) 0.0 x10^3/uL (0.0-0.2) Test 09/29/19 13:13 09/29/19 17:36 09/29/19 23:56 09/30/19 08:25 Glucose (Fingerstick) 191 mg/dL (70-99) 213 mg/dL (70-99) 165 mg/dL (70-99) 189 mg/dL (70-99) Laboratory Tests Test 09/29/19 13:13 09/29/19 17:36 09/29/19 23:56 09/30/19 08:25 Glucose (Fingerstick) 191 mg/dL (70-99) 213 mg/dL (70-99) 165 mg/dL (70-99) 189 mg/dL (70-99) Microbiology 09/26/19 Blood Culture - Preliminary, Resulted NO GROWTH AFTER 3 DAYS Medications Current Medications Piperacillin Sod/ Tazobactam Sod 4.5 gm/Sodium Chloride 100 ml @ 200 mls/hr 1X ONCE IV Last administered on 09/26/19at 11:03; Start 09/26/19 at 11:00; Stop 09/26/19 at 11:29; Status DC Vancomycin HCl (Vanco Per Pharmacy) 1 each 1X ONCE MC Last administered on 09/26/19at 11:00; Start 09/26/19 at 11:00; Stop 09/26/19 at 15:59; Status DC Sodium Chloride 1,000 ml @ 1,000 mls/hr 1X ONCE IV Last administered on 09/26/19at 11:02; Start 09/26/19 at 11:00; Stop 09/26/19 at 11:59; Status DC Sodium Chloride 1,000 ml @ 1,000 mls/hr 1X ONCE IV Last administered on 09/26/19at 11:03; Start 09/26/19 at 11:00; Stop 09/26/19 at 11:59; Status DC Sterile Water (WATER for RESP) 1,000 ml CONT PRN INH VIA VAPOTHERM DEVICE Last administered on 09/30/19at 04:48; Start 09/26/19 at 11:00 Vancomycin HCl 2 gm/Sodium Chloride 500 ml @ 250 mls/hr 1X ONCE IV Last administered on 09/26/19at 11:47; Start 09/26/19 at 11:30; Stop 09/26/19 at 13:29; Status DC Iohexol (Omnipaque 350 Mg/ml) 90 ml 1X ONCE IV Last administered on 09/26/19at 11:45; Start 09/26/19 at 11:45; Stop 09/26/19 at 11:46; Status DC Info (CONTRAST GIVEN -- Rx MONITORING) 1 each PRN DAILY PRN MC SEE COMMENTS; Start 09/26/19 at 11:45; Stop 09/28/19 at 11:44; Status DC Enoxaparin Sodium (Lovenox Per Pharmacy Prophylaxis Dosing) 1 each PRN DAILY PRN MC SEE COMMENTS; Start 09/26/19 at 14:30; Status Cancel Enoxaparin Sodium (Lovenox 40mg Syringe) 40 mg BID SQ Last administered on 09/28/19at 21:24; Start 09/26/19 at 15:00; Stop 09/29/19 at 11:24; Status DC Benzonatate (Tessalon Perle) 100 mg [id number] PO Last administered on 09/27/19at 21:50; Start 09/26/19 at 21:00 Zinc Sulfate (Orazinc) 220 mg DAILY PO Last administered on 09/27/19at 08:16; Start 09/27/19 at 09:00 Ascorbic Acid (Vitamin C) 500 mg DAILY PO Last administered on 09/27/19at 08:16; Start 09/27/19 at 09:00 Vitamin D (Vitamin D3) 5,000 unit DAILY PO Last administered on 09/27/19at 08:16; Start 09/27/19 at 09:00 Vitamin B Complex (Folbic Tablet) 1 tab DAILY PO ; Start 09/27/19 at 09:00 Vancomycin HCl (Vanco Per Pharmacy) 1 each PRN DAILY PRN MC SEE COMMENTS Last administered on 09/29/19at 13:12; Start 09/26/19 at 17:30 Piperacillin Sod/ Tazobactam Sod (Zosyn Per Pharmacy) 1 each PRN DAILY PRN MC SEE COMMENTS; Start 09/26/19 at 17:30 Sodium Chloride 1,000 ml @ 100 mls/hr Q10H IV Last administered on 09/28/19at 10:52; Start 09/26/19 at 17:30; Stop 09/28/19 at 12:00; Status DC Piperacillin Sod/ Tazobactam Sod 3.375 gm/Sodium Chloride 50 ml @ 100 mls/hr Q6HRS IV Last administered on 09/30/19at 06:17; Start 09/26/19 at 18:00 Vancomycin HCl 1.25 gm/Sodium Chloride 250 ml @ 167 mls/hr Q24H IV Last administered on 09/28/19at 12:20; Start 09/27/19 at 12:00; Stop 09/28/19 at 15:00; Status DC Vancomycin HCl (Vancomycin Trough Level) 1 each 1X ONCE MC Last administered on 09/28/19at 11:30; Start 09/28/19 at 11:30; Stop 09/28/19 at 11:31; Status DC Methylprednisolone Sodium Succinate (SOLU-Medrol 40MG VIAL) 80 mg Q8HRS IV Last administered on 09/30/19at 06:17; Start 09/26/19 at 22:00 Non-Formulary Medication 1 ea/ Sodium Chloride 250 ml @ 500 mls/hr 1X ONCE IV Last administered on 09/26/19at 21:50; Start 09/26/19 at 21:00; Stop 09/26/19 at 21:29; Status DC Non-Formulary Medication 1 ea/ Sodium Chloride 250 ml @ 500 mls/hr Q24H IV Last administered on 09/30/19at 09:01; Start 09/27/19 at 09:00; Stop 09/30/19 at 09:29; Status DC Amino Acids/ Glycerin/ Electrolytes 1,000 ml @ 80 mls/hr [id number] IV Last administered on 09/28/19at 12:21; Start 09/27/19 at 11:00 Insulin Human Lispro (HumaLOG) 0-7 UNITS TIDWMEALS SQ Last administered on 09/29/19at 17:55; Start 09/27/19 at 14:00 Dextrose (Dextrose 50%-Water Syringe) 12.5 gm PRN Q15MIN PRN IV SEE COMMENTS; Start 09/27/19 at 13:30 Dexmedetomidine HCl 400 mcg/ Sodium Chloride 100 ml @ 0 mls/hr CONT PRN IV SEE COMMENTS Last administered on 09/28/19at 09:10; Start 09/28/19 at 07:30 Sodium Chloride 500 ml @ 500 mls/hr 1X PRN PRN IV HYPOTENSION; Start 09/28/19 at 07:15 Atropine Sulfate (ATROPINE 0.5mg SYRINGE) 0.5 mg PRN Q5MIN PRN IV SEE COMMENTS; Start 09/28/19 at 07:15 Ondansetron HCl (Zofran) 4 mg STK-MED ONCE .ROUTE ; Start 09/28/19 at 10:33; Stop 09/28/19 at 10:33; Status DC Dopamine HCl/ Dextrose 250 ml @ 17.175 mls/ hr CONT PRN IV SEE I/O RECORD Last administered on 09/29/19at 17:45; Start 09/28/19 at 11:00 Dopamine HCl/ Dextrose 250 ml @ 17.175 mls/ hr CONT PRN IV SEE I/O RECORD; Start 09/28/19 at 11:00; Status UNV Ringer's Solution 1,000 ml @ 100 mls/hr Q10H IV Last administered on 09/29/19at 20:28; Start 09/28/19 at 13:00 Potassium Chloride/Water 100 ml @ 100 mls/hr Q1H IV Last administered on 09/28/19at 15:31; Start 09/28/19 at 13:00; Stop 09/28/19 at 14:59; Status DC Vancomycin HCl 1.5 gm/Sodium Chloride 500 ml @ 250 mls/hr Q18H IV Last administered on 09/29/19at 20:08; Start 09/29/19 at 02:00 Vancomycin HCl (Vancomycin Trough Level) 1 each 1X ONCE MC ; Start 09/30/19 at 13:30; Stop 09/30/19 at 13:31 Enoxaparin Sodium (Lovenox 80mg Syringe) 80 mg DAILY SQ Last administered on 09/30/19at 08:11; Start 09/29/19 at 12:00 Active Scripts Active Reported Artificial Tears (Polyvinyl Alcohol) 15 Ml Drops 2 Drop EACHEYE QID 20 Days Ibuprofen 400 Mg Tablet 400 Mg PO PRN Q6HRS PRN Tylophen (Acetaminophen) 500 Mg Capsule 500 Mg PO PRN Q6-8HRS Vitals/I & O Vital Sign - Last 24 Hours 09/29/19 09/29/19 09/29/19 09/29/19 11:00 11:29 12:00 12:00 Temp 99.2 99.2 Pulse 84 84 B/P (MAP) 114/52 (72) 127/66 (86) Pulse Ox 82 79 78 O2 Delivery Nasal Cannula VapoTherm Nasal Cannula Nasal Cannula O2 Flow Rate 40.0 40.0 40.0 40.0 09/29/19 09/29/19 09/29/19 09/29/19 13:00 14:00 14:57 15:00 Temp 99.1 99.1 Pulse 82 80 85 B/P (MAP) 123/57 (79) 140/73 (95) Pulse Ox 78 81 79 93 O2 Delivery Nasal Cannula Nasal Cannula VapoTherm Nasal Cannula O2 Flow Rate 40.0 40.0 40.0 40.0 09/29/19 09/29/19 09/29/19 09/29/19 16:00 17:00 18:00 19:00 Pulse 85 82 81 81 B/P (MAP) 129/70 (89) 140/63 (88) Pulse Ox 93 83 83 83 O2 Delivery Nasal Cannula Nasal Cannula Nasal Cannula O2 Flow Rate 40.0 40.0 40.0 09/29/19 09/29/19 09/29/19 09/29/19 20:00 20:00 20:29 21:00 Temp 98.2 98.2 Pulse 84 78 Resp B/P (MAP) 127/72 (90) 129/71 (90) Pulse Ox 95 94 80 O2 Delivery Nasal Cannula High Flow Nasal Cannula VapoTherm High Flow Nasal Cannula O2 Flow Rate 40.0 40.0 40.0 40.0 09/29/19 09/29/19 09/30/19 09/30/19 22:00 23:12 00:01 00:01 Temp 98.2 98.2 Pulse 78 78 80 B/P (MAP) 122/67 (85) 133/73 (93) 115/65 (82) Pulse Ox 80 86 80 O2 Delivery High Flow Nasal Cannula High Flow Nasal Cannula Nasal Cannula High Flow Nasal Cannula O2 Flow Rate 40.0 40.0 40.0 40.0 09/30/19 09/30/19 09/30/19 09/30/19 00:02 01:07 02:00 03:06 Pulse 76 74 76 Resp B/P (MAP) 134/72 (92) 135/76 (95) 143/75 (97) Pulse Ox 78 82 78 78 O2 Delivery VapoTherm High Flow Nasal Cannula High Flow Nasal Cannula High Flow Nasal Cannula O2 Flow Rate 40.0 40.0 40.0 40.0 09/30/19 09/30/19 09/30/19 09/30/19 04:02 04:04 04:18 05:00 Temp 98.5 98.5 Pulse 80 92 B/P (MAP) 122/61 (81) 137/64 (88) Pulse Ox 77 76 91 O2 Delivery Nasal Cannula High Flow Nasal Cannula VapoTherm High Flow Nasal Cannula O2 Flow Rate 40.0 40.0 40.0 40.0 09/30/19 09/30/19 09/30/19 09/30/19 06:10 07:00 07:27 08:00 Temp 98.2 98.2 Pulse 86 86 84 22 B/P (MAP) 145/68 (93) 136/72 (93) 148/64 (92) Pulse Ox 75 73 76 71 O2 Delivery High Flow Nasal Cannula Nasal Cannula VapoTherm Nasal Cannula O2 Flow Rate 40.0 40.0 40.0 40.0 09/30/19 09/30/19 09/30/19 08:00 09:00 09:40 Pulse 80 B/P (MAP) 140/83 (102) Pulse Ox 95 93 O2 Delivery Bi-pap BiPAP/CPAP BiPAP/CPAP Intake and Output 09/29/19 09/29/19 09/30/19 15:00 23:00 07:00 Intake Total 970 ml 655 ml 0 ml Output Total 750 ml 125 ml 650 ml Balance 220 ml 530 ml -650 ml Nutrition Consultation Dietary Evaluation: Recommendations by RD: Dietary education by RD, Increase Calorie Intake, Protein supplementation, PPN/TPN Comments: Continue w/PPN for short-term non-oral nutrition needs REC diet as able pending respiratory needs, goal diet regular w/Ensure supplements prn/as able Expected Outcomes/Goals: diet advancement Malnutrition Findings: Body Fat Depletion (Non Severe: Mild Depletion Weight Status: Overweight Justicifation of Admission Dx: Justifications for Admission: Justification of Admission Dx: Yes Aspiration Pneumonia: Hypoxemia RYANNE SULLIVAN MD Sep 30, 2019 10:21
[2019-09-30] MEDS: IV RINGERS,LACTATED 1000ML 1,000 ML IV SCH ×2 (10:28→15:24)
[2019-09-30] MEDS ORDERED: HALOPERIDOL LACTATE 5 MG/ML VIAL. IVP ONE (10:30)
--- NOTE | 2019-09-30 12:26 | PDOC ---
PROGRESS NOTES Subjective Subjective On BiPAP Objective Objective Vital Signs Date Time Temp Pulse Resp B/P (MAP) Pulse Ox O2 Delivery O2 Flow Rate FiO2 09/30/19 11:56 94 VapoTherm 40.0 09/30/19 11:00 98.1 85 136/77 (96) 98.1 09/30/19 06:10 22 Intake and Output 09/30/19 07:00 Intake Total 1625 ml Output Total 1525 ml Balance 100 ml Intake Oral 645 ml IV Total 250 ml Blood Product IV Normal Saline Flush 730 ml Output Urine Total 1525 ml Physical Exam Abdomen: Soft Heart: Regular rate Extremities: Other (1+ pitting) General: Alert, mild distress HEENT: Atraumatic, Other (On BiPAP) Lungs: Other (Scattered crepitations bilaterally) Neuro: Normal speech, Sensation intact Psych/Mental Status: Mood NL Skin: No rashes, No breakdown Assessment Assessment 1. Acute hypoxic respiratory failure, most probably COVID-19 viral pneumonia per pulmonary team, based on CT findings. PE ruled out. s/p convalescent serum and Remdecivir. On BiPAP, Pulm team following 2. Sepsis and hypotension: Continue antibiotics per ID team 3. Paroxysmal atrial fibrillation, probably precipitated by respiratory failure and sepsis. He is presently back in sinus rhythm. We will start beta-blockers once patient is off dopamine infusion. We will check 2D echocardiogram at a later date. 4. Metabolic encephalopathy, improving Plan Plan of Care Problems Medical Problems: (1) Acute respiratory failure with hypoxia Status: Acute (2) COVID-19 Status: Acute (3) HCAP (healthcare-associated pneumonia) Status: Acute (4) Renal insufficiency Status: Acute (5) Severe sepsis Status: Acute Comment Review of Relevant I have reviewed the following items cuco (where applicable) has been applied. Labs Laboratory Tests Test 09/29/19 13:13 09/29/19 17:36 09/29/19 23:56 09/30/19 08:25 Glucose (Fingerstick) 191 mg/dL (70-99) 213 mg/dL (70-99) 165 mg/dL (70-99) 189 mg/dL (70-99) Test 09/30/19 11:38 Glucose (Fingerstick) 176 mg/dL (70-99) Microbiology 09/26/19 Blood Culture - Preliminary, Resulted NO GROWTH AFTER 4 DAYS Medications Current Medications Haloperidol Lactate (Haldol Inj) 2 mg 1X ONCE IVP Last administered on 09/30/19at 10:25; Start 09/30/19 at 10:30; Stop 09/30/19 at 10:31; Status DC Vancomycin HCl (Vancomycin Trough Level) 1 each 1X ONCE MC ; Start 09/30/19 at 13:30; Stop 09/30/19 at 13:31 Vitals/I & O Vital Sign - Last 24 Hours 09/29/19 09/29/19 09/29/19 09/29/19 13:00 14:00 14:57 15:00 Temp 99.1 99.1 Pulse 82 80 85 B/P (MAP) 123/57 (79) 140/73 (95) Pulse Ox 78 81 79 93 O2 Delivery Nasal Cannula Nasal Cannula VapoTherm Nasal Cannula O2 Flow Rate 40.0 40.0 40.0 40.0 09/29/19 09/29/19 09/29/19 09/29/19 16:00 17:00 18:00 19:00 Pulse 85 82 81 81 B/P (MAP) 129/70 (89) 140/63 (88) Pulse Ox 93 83 83 83 O2 Delivery Nasal Cannula Nasal Cannula Nasal Cannula O2 Flow Rate 40.0 40.0 40.0 09/29/19 09/29/19 09/29/19 09/29/19 20:00 20:00 20:29 21:00 Temp 98.2 98.2 Pulse 84 78 Resp 22 22 B/P (MAP) 127/72 (90) 129/71 (90) Pulse Ox 95 94 80 O2 Delivery Nasal Cannula High Flow Nasal Cannula VapoTherm High Flow Nasal Cannula O2 Flow Rate 40.0 40.0 40.0 40.0 09/29/19 09/29/19 09/30/19 09/30/19 22:00 23:12 00:01 00:01 Temp 98.2 98.2 Pulse 78 78 80 Resp 22 B/P (MAP) 122/67 (85) 133/73 (93) 115/65 (82) Pulse Ox 80 86 80 O2 Delivery High Flow Nasal Cannula High Flow Nasal Cannula Nasal Cannula High Flow Nasal Cannula O2 Flow Rate 40.0 40.0 40.0 40.0 09/30/19 09/30/19 09/30/19 09/30/19 00:02 01:07 02:00 03:06 Pulse 76 74 76 Resp 22 22 22 B/P (MAP) 134/72 (92) 135/76 (95) 143/75 (97) Pulse Ox 78 82 78 78 O2 Delivery VapoTherm High Flow Nasal Cannula High Flow Nasal Cannula High Flow Nasal Cannula O2 Flow Rate 40.0 40.0 40.0 40.0 09/30/19 09/30/19 09/30/19 09/30/19 04:02 04:04 04:18 05:00 Temp 98.5 98.5 Pulse 80 92 Resp 22 B/P (MAP) 122/61 (81) 137/64 (88) Pulse Ox 77 76 91 O2 Delivery Nasal Cannula High Flow Nasal Cannula VapoTherm High Flow Nasal Cannula O2 Flow Rate 40.0 40.0 40.0 40.0 09/30/19 09/30/19 09/30/19 09/30/19 06:10 07:00 07:27 08:00 Temp 98.2 98.2 Pulse 86 86 84 Resp 22 B/P (MAP) 145/68 (93) 136/72 (93) 148/64 (92) Pulse Ox 75 73 76 71 O2 Delivery High Flow Nasal Cannula Nasal Cannula VapoTherm Nasal Cannula O2 Flow Rate 40.0 40.0 40.0 40.0 09/30/19 09/30/19 09/30/19 09/30/19 08:00 09:00 09:40 10:00 Pulse 80 80 B/P (MAP) 140/83 (102) 145/76 (99) Pulse Ox 95 93 93 O2 Delivery Bi-pap BiPAP/CPAP BiPAP/CPAP BiPAP/CPAP O2 Flow Rate 40.0 09/30/19 09/30/19 09/30/19 09/30/19 11:00 11:11 11:50 11:56 Temp 98.1 98.1 Pulse 85 B/P (MAP) 136/77 (96) Pulse Ox 94 94 95 94 O2 Delivery BiPAP/CPAP BiPAP/CPAP BiPAP/CPAP VapoTherm O2 Flow Rate 40.0 40.0 Intake and Output 09/29/19 09/29/19 09/30/19 15:00 23:00 07:00 Intake Total 970 ml 655 ml 0 ml Output Total 750 ml 125 ml 650 ml Balance 220 ml 530 ml -650 ml DARIUSZ STEVENS MD Sep 30, 2019 12:26
--- NOTE | 2019-09-30 12:34 | NUR ---
Spoke to the pharmacy regarding patients unwillingness to have labs drawn at this time so vanco trough level will not be obtained today. per pharmacy ok to give dose of vanco today.
[2019-09-30] MEDS: VANCOMYCIN PER PHARMACY MC PRN (12:47)
--- NOTE | 2019-09-30 12:55 | NUR ---
Pharmacy Vancomycin Dosing Note S: Consulted to monitor and dose vancomycin started 09/26/19. O: BUZZ JANSEN is a 79 year old M with HCAP. Other Antibiotics: zosyn 3.375 gm q6hrs LABS: pt refusing lab draws Last Trough level 09/28/19: 6.7 on 1250mg iv q24hrs regimen Target Trough: 15-20 A: Based on: calculated levels are peak~34 and trough~14 on 1500mg iv q18hrs P: 1. Continue Vancomycin 1500 mg IV q18h 2. Follow up Trough level being refused by patient 3. Pharmacy will continue to monitor, follow and adjust therapy as needed. DEEPAK SIGALA [facility], 09/30/19 [id number]
[2019-09-30] MEDS: VANCOMYCIN 1.5 GM in IV NORMAL SALINE 500ML BAG 500 ML IV SCH (15:35)
--- NOTE | 2019-09-30 15:45 | NUR ---
SPOKE WITH THE PT IN DEPTH THIS SHIFT IN REGARDS TO WEARING THE BIPAP TO HELP WITH HIS BREATHING AND OXYGEN SATS. PT WORE BIPAP FROM 0830 UNTIL 1130 AND THEN STATED HE DID NOT WANT TO WEAR THE BIPAP ANY LONGER. pt SPOKE TO RESPIRATORY THERAPIST ABOUT COMING OFF THE BIPAP AND WHAT THAT WOULD MEAN. PT STATED THAT HE KNEW HE COULD FROM NOT WEARING THE BIPAP AND STATED HE WAS OK WITH THAT. DR PINEDA MADE AWARE WELL ANASTASIA ORTIZ NP.
--- NOTE | 2019-09-30 15:47 | PDOC ---
PROGRESS NOTES Chief Complaint Chief Complaint COVID-19, pos test 09/19 acute hypoxic respiratory faiulre severe sepsis pneumoniits, broad antibiotics, pneumonia and sepsis, acute renal failure, vasomotor, and acute rhabdomyolysis, admit chronic dementia with acute on chronic encephalopathy severe malnutrition, POA History of Present Illness History of Present Illness he has refused some treatments, some things adjusted to try to accomodate, try to maintain on vapotherm DNR, pulm following, very helpful breathing better after low dose Haldol, cont current 2 evals, sometimes confused, not agitated, no event Vitals Vitals Vital Signs Date Time Temp Pulse Resp B/P (MAP) Pulse Ox O2 Delivery O2 Flow Rate FiO2 09/30/19 15:01 62 VapoTherm 40.0 09/30/19 15:00 95 142/60 (87) 09/30/19 11:00 98.1 98.1 09/30/19 06:10 22 Physical Exam General: Alert, mild distress Heart: Regular rate Abdomen: Soft Extremities: Other (1+ pitting) Skin: No rashes, No breakdown Labs LABS Laboratory Tests Test 09/29/19 17:36 09/29/19 23:56 09/30/19 08:25 09/30/19 11:38 Glucose (Fingerstick) 213 mg/dL (70-99) 165 mg/dL (70-99) 189 mg/dL (70-99) 176 mg/dL (70-99) Assessment and Plan Assessmemt and Plan Problems Medical Problems: (1) Acute respiratory failure with hypoxia Status: Acute (2) COVID-19 Status: Acute (3) HCAP (healthcare-associated pneumonia) Status: Acute (4) Renal insufficiency Status: Acute (5) Severe sepsis Status: Acute Comment Review of Relevant I have reviewed the following items cuco (where applicable) has been applied. Labs Laboratory Tests Test 09/28/19 17:56 09/29/19 05:55 09/29/19 13:13 09/29/19 17:36 Glucose (Fingerstick) 214 mg/dL (70-99) 191 mg/dL (70-99) 213 mg/dL (70-99) White Blood Count 11.2 x10^3/uL (4.0-11.0) Red Blood Count 3.97 x10^6/uL (4.30-5.70) Hemoglobin 13.6 g/dL (13.0-17.5) Hematocrit 39.8 % (39.0-53.0) Mean Corpuscular Volume 100 fL (79-100) Mean Corpuscular Hemoglobin 34 pg (25-35) Mean Corpuscular Hemoglobin Concent 34 g/dL (31-37) Red Cell Distribution Width 15.2 % (11.5-14.5) Platelet Count 239 x10^3/uL (140-400) Neutrophils (%) (Auto) 93 % (31-73) Lymphocytes (%) (Auto) 3 % (24-48) Monocytes (%) (Auto) 4 % (0-9) Eosinophils (%) (Auto) 0 % (0-3) Basophils (%) (Auto) 0 % (0-3) Neutrophils # (Auto) 10.4 x10^3/uL (1.8-7.7) Lymphocytes # (Auto) 0.3 x10^3/uL (1.0-4.8) Monocytes # (Auto) 0.4 x10^3/uL (0.0-1.1) Eosinophils # (Auto) 0.0 x10^3/uL (0.0-0.7) Basophils # (Auto) 0.0 x10^3/uL (0.0-0.2) Test 09/29/19 23:56 09/30/19 08:25 09/30/19 11:38 Glucose (Fingerstick) 165 mg/dL (70-99) 189 mg/dL (70-99) 176 mg/dL (70-99) Laboratory Tests Test 09/29/19 17:36 09/29/19 23:56 09/30/19 08:25 09/30/19 11:38 Glucose (Fingerstick) 213 mg/dL (70-99) 165 mg/dL (70-99) 189 mg/dL (70-99) 176 mg/dL (70-99) Microbiology 09/26/19 Blood Culture - Preliminary, Resulted NO GROWTH AFTER 4 DAYS Medications Current Medications Piperacillin Sod/ Tazobactam Sod 4.5 gm/Sodium Chloride 100 ml @ 200 mls/hr 1X ONCE IV Last administered on 09/26/19at 11:03; Start 09/26/19 at 11:00; Stop 09/26/19 at 11:29; Status DC Vancomycin HCl (Vanco Per Pharmacy) 1 each 1X ONCE MC Last administered on 09/26/19at 11:00; Start 09/26/19 at 11:00; Stop 09/26/19 at 15:59; Status DC Sodium Chloride 1,000 ml @ 1,000 mls/hr 1X ONCE IV Last administered on 09/26/19at 11:02; Start 09/26/19 at 11:00; Stop 09/26/19 at 11:59; Status DC Sodium Chloride 1,000 ml @ 1,000 mls/hr 1X ONCE IV Last administered on 09/26/19at 11:03; Start 09/26/19 at 11:00; Stop 09/26/19 at 11:59; Status DC Sterile Water (WATER for RESP) 1,000 ml CONT PRN INH VIA VAPOTHERM DEVICE Last administered on 09/30/19at 04:48; Start 09/26/19 at 11:00 Vancomycin HCl 2 gm/Sodium Chloride 500 ml @ 250 mls/hr 1X ONCE IV Last administered on 09/26/19at 11:47; Start 09/26/19 at 11:30; Stop 09/26/19 at 13:29; Status DC Iohexol (Omnipaque 350 Mg/ml) 90 ml 1X ONCE IV Last administered on 09/26/19at 11:45; Start 09/26/19 at 11:45; Stop 09/26/19 at 11:46; Status DC Info (CONTRAST GIVEN -- Rx MONITORING) 1 each PRN DAILY PRN MC SEE COMMENTS; Start 09/26/19 at 11:45; Stop 09/28/19 at 11:44; Status DC Enoxaparin Sodium (Lovenox Per Pharmacy Prophylaxis Dosing) 1 each PRN DAILY PRN MC SEE COMMENTS; Start 09/26/19 at 14:30; Status Cancel Enoxaparin Sodium (Lovenox 40mg Syringe) 40 mg BID SQ Last administered on 09/28/19at 21:24; Start 09/26/19 at 15:00; Stop 09/29/19 at 11:24; Status DC Benzonatate (Tessalon Perle) 100 mg [id number] PO Last administered on 09/27/19at 21:50; Start 09/26/19 at 21:00 Zinc Sulfate (Orazinc) 220 mg DAILY PO Last administered on 09/27/19at 08:16; Start 09/27/19 at 09:00 Ascorbic Acid (Vitamin C) 500 mg DAILY PO Last administered on 09/27/19at 08:16; Start 09/27/19 at 09:00 Vitamin D (Vitamin D3) 5,000 unit DAILY PO Last administered on 09/27/19at 08:16; Start 09/27/19 at 09:00 Vitamin B Complex (Folbic Tablet) 1 tab DAILY PO ; Start 09/27/19 at 09:00 Vancomycin HCl (Vanco Per Pharmacy) 1 each PRN DAILY PRN MC SEE COMMENTS Last administered on 09/30/19at 12:47; Start 09/26/19 at 17:30 Piperacillin Sod/ Tazobactam Sod (Zosyn Per Pharmacy) 1 each PRN DAILY PRN MC SEE COMMENTS; Start 09/26/19 at 17:30 Sodium Chloride 1,000 ml @ 100 mls/hr Q10H IV Last administered on 09/28/19at 10:52; Start 09/26/19 at 17:30; Stop 09/28/19 at 12:00; Status DC Piperacillin Sod/ Tazobactam Sod 3.375 gm/Sodium Chloride 50 ml @ 100 mls/hr Q6HRS IV Last administered on 09/30/19at 12:55; Start 09/26/19 at 18:00 Vancomycin HCl 1.25 gm/Sodium Chloride 250 ml @ 167 mls/hr Q24H IV Last administered on 09/28/19at 12:20; Start 09/27/19 at 12:00; Stop 09/28/19 at 15:00; Status DC Vancomycin HCl (Vancomycin Trough Level) 1 each 1X ONCE MC Last administered on 09/28/19at 11:30; Start 09/28/19 at 11:30; Stop 09/28/19 at 11:31; Status DC Methylprednisolone Sodium Succinate (SOLU-Medrol 40MG VIAL) 80 mg Q8HRS IV Last administered on 09/30/19at 15:31; Start 09/26/19 at 22:00 Non-Formulary Medication 1 ea/ Sodium Chloride 250 ml @ 500 mls/hr 1X ONCE IV Last administered on 09/26/19at 21:50; Start 09/26/19 at 21:00; Stop 09/26/19 at 21:29; Status DC Non-Formulary Medication 1 ea/ Sodium Chloride 250 ml @ 500 mls/hr Q24H IV Last administered on 09/30/19at 09:01; Start 09/27/19 at 09:00; Stop 09/30/19 at 09:29; Status DC Amino Acids/ Glycerin/ Electrolytes 1,000 ml @ 80 mls/hr [id number] IV Last administered on 09/28/19at 12:21; Start 09/27/19 at 11:00 Insulin Human Lispro (HumaLOG) 0-7 UNITS TIDWMEALS SQ Last administered on 09/28at 17:55; Start 09/27/19 at 14:00 Dextrose (Dextrose 50%-Water Syringe) 12.5 gm PRN Q15MIN PRN IV SEE COMMENTS; Start 09/27/19 at 13:30 Dexmedetomidine HCl 400 mcg/ Sodium Chloride 100 ml @ 0 mls/hr CONT PRN IV SEE COMMENTS Last administered on 09/28/19at 09:10; Start 09/28/19 at 07:30 Sodium Chloride 500 ml @ 500 mls/hr 1X PRN PRN IV HYPOTENSION; Start 09/28/19 at 07:15 Atropine Sulfate (ATROPINE 0.5mg SYRINGE) 0.5 mg PRN Q5MIN PRN IV SEE COMMENTS; Start 09/28/19 at 07:15 Ondansetron HCl (Zofran) 4 mg STK-MED ONCE .ROUTE ; Start 09/28/19 at 10:33; Stop 09/28/19 at 10:33; Status DC Dopamine HCl/ Dextrose 250 ml @ 17.175 mls/ hr CONT PRN IV SEE I/O RECORD Last administered on 09/30/19at 10:32; Start 09/28/19 at 11:00 Dopamine HCl/ Dextrose 250 ml @ 17.175 mls/ hr CONT PRN IV SEE I/O RECORD; Start 09/28/19 at 11:00; Status UNV Ringer's Solution 1,000 ml @ 100 mls/hr Q10H IV Last administered on 09/30/19at 15:24; Start 09/28/19 at 13:00 Potassium Chloride/Water 100 ml @ 100 mls/hr Q1H IV Last administered on 7 /3/20at 15:31; Start 09/28/19 at 13:00; Stop 09/28/19 at 14:59; Status DC Vancomycin HCl 1.5 gm/Sodium Chloride 500 ml @ 250 mls/hr Q18H IV Last administered on 09/30/19at 15:35; Start 09/29/19 at 02:00 Vancomycin HCl (Vancomycin Trough Level) 1 each 1X ONCE MC ; Start 09/30/19 at 13:30; Stop 09/30/19 at 12:36; Status DC Enoxaparin Sodium (Lovenox 80mg Syringe) 80 mg DAILY SQ Last administered on 09/30/19at 08:11; Start 09/29/19 at 12:00 Haloperidol Lactate (Haldol Inj) 2 mg 1X ONCE IVP Last administered on at 10:25; Start 09/30/19 at 10:30; Stop 09/30/19 at 10:31; Status DC Active Scripts Active Reported Artificial Tears (Polyvinyl Alcohol) 15 Ml Drops 2 Drop EACHEYE QID 20 Days Ibuprofen 400 Mg Tablet 400 Mg PO PRN Q6HRS PRN Tylophen (Acetaminophen) 500 Mg Capsule 500 Mg PO PRN Q6-8HRS Vitals/I & O Vital Sign - Last 24 Hours 09/29/19 09/29/19 09/29/19 09/29/19 16:00 17:00 18:00 19:00 Pulse 85 82 81 81 B/P (MAP) 129/70 (89) 140/63 (88) Pulse Ox 93 83 83 83 O2 Delivery Nasal Cannula Nasal Cannula Nasal Cannula O2 Flow Rate 40.0 40.0 40.0 09/29/19 09/29/19 09/29/19 09/29/19 20:00 20:00 20:29 21:00 Temp 98.2 98.2 Pulse 84 78 Resp 22 22 B/P (MAP) 127/72 (90) 129/71 (90) Pulse Ox 95 94 80 O2 Delivery Nasal Cannula High Flow Nasal Cannula VapoTherm High Flow Nasal Cannula O2 Flow Rate 40.0 40.0 40.0 40.0 09/29/19 09/29/19 09/30/19 09/30/19 22:00 23:12 00:01 00:01 Temp 98.2 98.2 Pulse 78 78 80 Resp 22 B/P (MAP) 122/67 (85) 133/73 (93) 115/65 (82) Pulse Ox 80 86 80 O2 Delivery High Flow Nasal Cannula High Flow Nasal Cannula Nasal Cannula High Flow Nasal Cannula O2 Flow Rate 40.0 40.0 40.0 40.0 09/30/19 09/30/19 09/30/19 09/30/19 00:02 01:07 02:00 03:06 Pulse 76 74 76 Resp 22 22 22 B/P (MAP) 134/72 (92) 135/76 (95) 143/75 (97) Pulse Ox 78 82 78 78 O2 Delivery VapoTherm High Flow Nasal Cannula High Flow Nasal Cannula High Flow Nasal Cannula O2 Flow Rate 40.0 40.0 40.0 40.0 09/30/19 09/30/19 09/30/19 09/30/19 04:02 04:04 04:18 05:00 Temp 98.5 98.5 Pulse 80 92 Resp 22 B/P (MAP) 122/61 (81) 137/64 (88) Pulse Ox 77 76 91 O2 Delivery Nasal Cannula High Flow Nasal Cannula VapoTherm High Flow Nasal Cannula O2 Flow Rate 40.0 40.0 40.0 40.0 09/30/19 09/30/19 09/30/19 09/30/19 06:10 07:00 07:27 08:00 Temp 98.2 98.2 Pulse 86 86 84 Resp 22 B/P (MAP) 145/68 (93) 136/72 (93) 148/64 (92) Pulse Ox 75 73 76 71 O2 Delivery High Flow Nasal Cannula Nasal Cannula VapoTherm Nasal Cannula O2 Flow Rate 40.0 40.0 40.0 40.0 09/30/19 09/30/19 09/30/19 09/30/19 08:00 09:00 09:40 10:00 Pulse 80 80 B/P (MAP) 140/83 (102) 145/76 (99) Pulse Ox 95 93 93 O2 Delivery Bi-pap BiPAP/CPAP BiPAP/CPAP BiPAP/CPAP O2 Flow Rate 40.0 09/30/19 09/30/19 09/30/19 09/30/19 11:00 11:11 11:50 11:56 Temp 98.1 98.1 Pulse 85 B/P (MAP) 136/77 (96) Pulse Ox 94 94 95 94 O2 Delivery BiPAP/CPAP BiPAP/CPAP BiPAP/CPAP VapoTherm O2 Flow Rate 40.0 40.0 09/30/19 09/30/19 09/30/19 09/30/19 12:00 12:00 13:00 14:00 Pulse 96 74 90 B/P (MAP) 145/67 (93) 115/52 (73) 146/78 (100) Pulse Ox 94 94 80 O2 Delivery Nasal Cannula Nasal Cannula Nasal Cannula Nasal Cannula O2 Flow Rate 40.0 40.0 40.0 40.0 09/30/19 09/30/19 15:00 15:01 Pulse 95 B/P (MAP) 142/60 (87) Pulse Ox 64 62 O2 Delivery Nasal Cannula VapoTherm O2 Flow Rate 40.0 40.0 Intake and Output0 09/29/19 09/29/19 09/30/19 15:00 23:00 07:00 Intake Total 970 ml 655 ml 0 ml Output Total 750 ml 125 ml 650 ml Balance 220 ml 530 ml -650 ml Nutrition Consultation Dietary Evaluation: Recommendations by RD: Dietary education by RD, Increase Calorie Intake, Protein supplementation, PPN/TPN Comments: Continue w/PPN for short-term non-oral nutrition needs REC diet as able pending respiratory needs, goal diet regular w/Ensure supplements prn/as able Expected Outcomes/Goals: diet advancement Malnutrition Findings: Body Fat Depletion (Non Severe: Mild Depletion Weight Status: Overweight Justicifation of Admission Dx: Justifications for Admission: Justification of Admission Dx: Yes Aspiration Pneumonia: Hypoxemia RYANNE SULLIVAN MD Sep 30, 2019 15:47
--- NOTE | 2019-09-30 20:40 | NUR ---
Pt is sating in the 50's and 60s despite being on vapotherm 40L @ [id number]. RN asked patient if he wants to go back on the BIPAP and he refuses any further medical treatments. Pt is aware that he can if he does not go on the BIPAP per previous nurses/RT discussion with him during the day. Providers are aware of his wishes. Continue to monitor.
--- NOTE | 2019-09-30 23:42 | NUR ---
This RN was able to persuade pt to put BIPAP on for the moment d/t his 02sats in the low 60s. BIPAP placed on pt @2330.
[2019-10-01] VITALS (24 sets, daily range): BP systolic 82–143; BP diastolic 43–83
[2019-10-01] MEDS: PIPERACILLIN/TAZOBACTAM 3.375 GM in IV NORMAL SALINE 50ML 50 ML IV SCH ×5 (00:36→23:30)
--- NOTE | 2019-10-01 01:14 | NUR ---
Pt takes off BIPAP @ 0100 and desats to 37% before returning to 50 & low 60s on Vapotherm 40L @ 100%FIO2. When asking if he wanted it back on he said "no" and shook his head.
[2019-10-01] MEDS: IV RINGERS,LACTATED 1000ML 1,000 ML IV SCH ×3 (01:19→21:10)
[2019-10-01] MEDS: methylPREDNISolone SOD SUCC PF 40 MG/ML VIAL. IV SCH ×3 (05:18→21:10)
[2019-10-01] MEDS: INSULIN LISPRO 300 UNITS/3 ML VIAL. SQ SCH ×3 (08:00→17:00)
[2019-10-01] MEDS: VANCOMYCIN 1.5 GM in IV NORMAL SALINE 500ML BAG 500 ML IV SCH (08:00)
[2019-10-01] MEDS: BENZONATATE 100 MG CAPSULE. PO SCH (09:00)
[2019-10-01] MEDS: CHOLECALCIFEROL (VITAMIN D3) 5,000 UNIT CAPSULE PO SCH (09:00)
[2019-10-01] MEDS: ASCORBIC ACID 500 MG TABLET PO SCH (09:00)
[2019-10-01] MEDS: ZINC SULFATE 220 MG CAPSULE. PO SCH (09:00)
[2019-10-01] MEDS: VITAMIN B12,B9,B6 COMPLEX 1 TABLET. PO SCH (09:00)
--- NOTE | 2019-10-01 09:00 | PDOC ---
PULMONARY PROGRESS NOTES Subjective Patient more comfortable Vitals Vital Signs Date Time Temp Pulse Resp B/P (MAP) Pulse Ox O2 Delivery O2 Flow Rate FiO2 10/01/19 07:59 70 Vepotherm 40.0 10/01/19 06:00 87 120/58 (78) 10/01/19 04:00 98.7 98.7 Comments Patient seen doing the ID- pandemic, visual examination no respiratory distress in sync with the ventilator no significant edema Labs Laboratory Tests Test 09/29/19 13:13 09/29/19 17:36 09/29/19 23:56 09/30/19 08:25 Glucose (Fingerstick) 191 mg/dL (70-99) 213 mg/dL (70-99) 165 mg/dL (70-99) 189 mg/dL (70-99) Test 09/30/19 11:38 09/30/19 16:46 10/01/19 08:07 Glucose (Fingerstick) 176 mg/dL (70-99) 172 mg/dL (70-99) 159 mg/dL (70-99) Laboratory Tests Test 09/30/19 11:38 09/30/19 16:46 10/01/19 08:07 Glucose (Fingerstick) 176 mg/dL (70-99) 172 mg/dL (70-99) 159 mg/dL (70-99) Medications Active Scripts Medications Dose Route/Sig Max Daily Dose Days Date Category Artificial Tears (Polyvinyl Alcohol) 15 Ml Drops 2 Drop EACHEYE QID 20 09/26/19 Reported Ibuprofen 400 Mg Tablet 400 Mg PO PRN Q6HRS PRN 09/26/19 Reported Tylophen (Acetaminophen) 500 Mg Capsule 500 Mg PO PRN Q6-8HRS 09/26/[address] chest Impression: Right posterior lower lung field consolidation. Extensive interstitial, groundglass infiltrates brandt. Enlarged right mediastinal and right hilar lymph nodes. Correlate for underlying infectious process. Follow-up to resolution is recommended to exclude underlying neoplastic etiology. Calculus at the gallbladder neck. Small hiatal hernia. CXR Impression: No focal infiltrate. Minimal left pleural effusion may be present. Impression . IMPRESSION: 1. Acute hypoxemic respiratory failure. 2. COVID-[address] angiogram, no evidence of pulmonary embolism. 4. Abnormal CT angiogram revealing bilateral ground glass opacities and infiltrates compatible with viral pneumonia. 5. Metabolic toxic encephalopathy-- improving 6. History of dementia. 7. Hypertension. 8. Hypotension related to COVID-19. 9. Sepsis--improving 10 dysphagia, patient wanting pleasure feeding Plan . Continue with comfort care I had multiple conversations with the patient, he wishes to proceed with palliative care Continue pleasure feeding despite possible aspiration cont. IVF Patient does not want any labs drawn Cont. antibiotic S/P Remdesivir Status post convalescent serum--09/27/2019 GI/DVT prophylaxis Discussed with RN and RT Patient had a episode of profound hypoxemia and does not wish to wear the BiPAP anymore he wants to use the Vapotherm he was educated that he potentially could pass away if we did not treat his hypoxia efficiently and he is fine with that. He is a DNR/DNI. Total cumulative critical care time of 30 minutes reviewing data, labs, chest x-ray, and formulating a plan. DNR/DNI AALIYAH PINEDA MD Oct 01, 2019 09:00
[2019-10-01] MEDS ORDERED: MORPHINE SULFATE 10 MG/ML VIAL. ONE (10:46)
[2019-10-01] MEDS: MORPHINE SULFATE 2 MG/ML VIAL. IVP PRN ×3 (10:48→19:42)
--- NOTE | 2019-10-01 10:58 | NUR ---
SS following up with discharge planning. SS reviewed pt chart and discussed with pt RN. Request was made for referral to inpatient hospice. Pt is LT resident from [facility] and [facility] and has no family. Referral called to [facility], ; fax [phone]. [facility] came to assess pt and pt unable to sign consents and was not able to be admitted. [place] verified that pt has no other family. Pt DNR and wanting comfort care per RN. SS will continue to follow for discharge planning.
[2019-10-01] MEDS ORDERED: ACETAMINOPHEN 650 MG SUPP.RECT. PR PRN (11:45)
[2019-10-01] MEDS: AMINO AC 3%/ELECTROLYTE/GLYCER 1,000 ML IV SCH ×3 (14:48→19:30)
[2019-10-01] MEDS: KETOROLAC 15 MG/ML VIAL. IVP PRN ×2 (16:15→23:30)
--- NOTE | 2019-10-01 16:20 | PDOC ---
MARLENI,ZO PEDIATRIC NEUROPSYCHOLOGIST 10/01/19 1620: CARDIO Progress Notes Date and Time Date of Service 10/01/19 Time of Evaluation 1310 Subjective Subjective: No Chest Pain, No Palpitations, No Dizziness, Other (SOA) Vitals Vitals Vital Signs Date Time Temp Pulse Resp B/P (MAP) Pulse Ox O2 Delivery O2 Flow Rate FiO2 10/01/19 15:57 57 Vepotherm 40.0 10/01/19 15:00 100.2 88 22 102/43 (62) 100.2 Weight Weight [ ] Input and Output Intake and Output Intake and Output 10/01/19 07:00 Intake Total 50 ml Output Total 3575 ml Balance -3525 ml Intake Oral 50 ml Output Urine Total 3575 ml # Bowel Movements 1 Laboratory Labs Laboratory Tests Test 09/30/19 16:46 10/01/19 08:07 Glucose (Fingerstick) 172 mg/dL (70-99) 159 mg/dL (70-99) Microbiology Micro Microbiology 09/26/19 Blood Culture - Final, Complete NO GROWTH AFTER 5 DAYS Physical Exam HEENT: Neck Supple W Full Motion Chest: Symmetric LUNGS: Other Heart: S1S2, RRR Abdomen: Soft N/T Extremities: Other (1+ bilateral LE edema) Neurology: alert Assessment Assessment 1. Acute hypoxic respiratory failure with COVID PNA. s/p convalescent serum and Remdecivir. On vapotherm. As per pulm 2. Sepsis and hypotension: Continue antibiotics per ID team. Off pressor support. 3. PAFIB, probably precipitated by respiratory failure and sepsis. Maintaining SR. 4. Metabolic encephalopathy, improving 5. MARIANA Recommendations ASA Add metoprolol when BP consistently adequate Outpatient echo when recovered from COVID Ongoing lung optimization as per pulmonary Supportive care Justicifation of Admission Dx: Justifications for Admission: Justification of Admission Dx: Yes Aspiration Pneumonia: Hypoxemia DARIUSZ STEVENS MD 10/01/19 1624: CARDIO Progress Notes Assessment Assessment Agree with CLIPPER OPERATOR's assessment and plan. Patient is currently on Vapotherm since he has been refusing BiPAP treatments Continue current management of acute respiratory failure/COVID pneumonia per pulmonary team PAF maintaining sinus rhythm Patient currently DNR/DNI ZO YEPEZ APRN Oct 01, 2019 16:20 DARIUSZ STEVENS MD Oct 01, 2019 16:24
[2019-10-01] MEDS: ASPIRIN ENTERIC COATED 81 MG TABLET.DR. PO SCH (17:00)
[2019-10-01] MEDS: STERILE WATER for RESP 1,000 ML BAG. INH PRN (18:06)
--- NOTE | 2019-10-01 22:47 | NUR ---
Pt is sating in the 40-50s with agonal labored breathing even on vasotherm 40L/100%. RN has asked pt multiple times tonight if he wants his BIPAP on and he shakes his head. Providers are aware of his condition and his wishes for comfort/palliative care. Unable to have pt on [facility] because he is unable to sign. Continue to keep pt comfortable with medication and with plan of care.
[2019-10-02] VITALS (14 sets, daily range): BP systolic 51–151; BP diastolic 29–75
[2019-10-02] MEDS: methylPREDNISolone SOD SUCC PF 40 MG/ML VIAL. IV SCH (05:00)
[2019-10-02] MEDS: PIPERACILLIN/TAZOBACTAM 3.375 GM in IV NORMAL SALINE 50ML 50 ML IV SCH ×2 (05:00→11:32)
[2019-10-02] MEDS: IV RINGERS,LACTATED 1000ML 1,000 ML IV SCH ×2 (07:54→08:15)
[2019-10-02] MEDS: MORPHINE SULFATE 2 MG/ML VIAL. IVP PRN ×4 (07:55→13:57)
[2019-10-02] MEDS: INSULIN LISPRO 300 UNITS/3 ML VIAL. SQ SCH ×2 (08:00→11:53)
[2019-10-02] MEDS: ASPIRIN ENTERIC COATED 81 MG TABLET.DR. PO SCH (08:00)
--- NOTE | 2019-10-02 08:45 | PDOC ---
PULMONARY PROGRESS NOTES Subjective Patient more comfortable Vitals Vital Signs Date Time Temp Pulse Resp B/P (MAP) Pulse Ox O2 Delivery O2 Flow Rate FiO2 10/02/19 07:46 100.5 100.5 10/02/19 07:00 96 22 139/60 (86) 33 High Flow Nasal Cannula 40.0 Labs Laboratory Tests Test 09/30/19 11:38 09/30/19 16:46 10/01/19 08:07 Glucose (Fingerstick) 176 mg/dL (70-99) 172 mg/dL (70-99) 159 mg/dL (70-99) Medications Active Scripts Medications Dose Route/Sig Max Daily Dose Days Date Category Artificial Tears (Polyvinyl Alcohol) 15 Ml Drops 2 Drop EACHEYE QID 20 09/26/19 Reported Ibuprofen 400 Mg Tablet 400 Mg PO PRN Q6HRS PRN 09/26/19 Reported Tylophen (Acetaminophen) 500 Mg Capsule 500 Mg PO PRN Q6-8HRS 09/26/[address] chest Impression: Right posterior lower lung field consolidation. Extensive interstitial, groundglass infiltrates brandt. Enlarged right mediastinal and right hilar lymph nodes. Correlate for underlying infectious process. Follow-up to resolution is recommended to exclude underlying neoplastic etiology. Calculus at the gallbladder neck. Small hiatal hernia. CXR Impression: No focal infiltrate. Minimal left pleural effusion may be present. Impression . IMPRESSION: 1. Acute hypoxemic respiratory failure. 2. COVID-[address] angiogram, no evidence of pulmonary embolism. 4. Abnormal CT angiogram revealing bilateral ground glass opacities and infiltrates compatible with viral pneumonia. 5. Metabolic toxic encephalopathy-- improving 6. History of dementia. 7. Hypertension. 8. Hypotension related to COVID-19. 9. Sepsis--improving 10 dysphagia, patient wanting pleasure feeding Plan . Patient wishes to withdraw care, he is expressed that to me and Dr. matt No DURABLE POWER OF GRAIN DRIER is available We will proceed with withdrawing care, providing palliative care only I had multiple conversations with the patient, he wishes to proceed with palliative care DNR/DNI AALIYAH PINEDA MD Oct 02, 2019 08:45
--- NOTE | 2019-10-02 08:53 | PDOC ---
PROGRESS NOTES Chief Complaint Chief Complaint late entry, pt seen 7.6, tried to have placed on hospice care, pt was unable to sign, mental status poor, still breathing, COVID-19, pos test 09/19 acute hypoxic respiratory faiulre severe sepsis pneumoniits, broad antibiotics, pneumonia and sepsis, acute renal failure, vasomotor, and acute rhabdomyolysis, admit chronic dementia with acute on chronic encephalopathy severe malnutrition, POA History of Present Illness History of Present Illness he has refused some treatments, some things adjusted to try to accomodate, try to maintain on vapotherm DNR, pulm following, very helpful breathing better after low dose Haldol, cont current 2 evals, sometimes confused, not agitated, no event Vitals Vitals Vital Signs Date Time Temp Pulse Resp B/P (MAP) Pulse Ox O2 Delivery O2 Flow Rate FiO2 10/02/19 07:46 100.5 100.5 10/02/19 07:00 96 22 139/60 (86) 33 High Flow Nasal Cannula 40.0 Physical Exam General: Alert, mild distress Heart: Regular rate Abdomen: Soft Extremities: Other (1+ pitting) Skin: No rashes, No breakdown Assessment and Plan Assessmemt and Plan Problems Medical Problems: (1) Acute respiratory failure with hypoxia Status: Acute (2) COVID-19 Status: Acute (3) HCAP (healthcare-associated pneumonia) Status: Acute (4) Renal insufficiency Status: Acute (5) Severe sepsis Status: Acute Comment Review of Relevant I have reviewed the following items ucco (where applicable) has been applied. Labs Laboratory Tests Test 09/30/19 11:38 09/30/19 16:46 10/01/19 08:07 Glucose (Fingerstick) 176 mg/dL (70-99) 172 mg/dL (70-99) 159 mg/dL (70-99) Microbiology 09/26/19 Blood Culture - Final, Complete NO GROWTH AFTER 5 DAYS Medications Current Medications Piperacillin Sod/ Tazobactam Sod 4.5 gm/Sodium Chloride 100 ml @ 200 mls/hr 1X ONCE IV Last administered on 09/26/19at 11:03; Start 09/26/19 at 11:00; Stop 09/26/19 at 11:29; Status DC Vancomycin HCl (Vanco Per Pharmacy) 1 each 1X ONCE MC Last administered on 09/26/19at 11:00; Start 09/26/19 at 11:00; Stop 09/26/19 at 15:59; Status DC Sodium Chloride 1,000 ml @ 1,000 mls/hr 1X ONCE IV Last administered on 09/26/19at 11:02; Start 09/26/19 at 11:00; Stop 09/26/19 at 11:59; Status DC Sodium Chloride 1,000 ml @ 1,000 mls/hr 1X ONCE IV Last administered on 09/26/19at 11:03; Start 09/26/19 at 11:00; Stop 09/26/19 at 11:59; Status DC Sterile Water (WATER for RESP) 1,000 ml CONT PRN INH VIA VAPOTHERM DEVICE Last administered on 10/01/19at 18:06; Start 09/26/19 at 11:00 Vancomycin HCl 2 gm/Sodium Chloride 500 ml @ 250 mls/hr 1X ONCE IV Last administered on 09/26/19at 11:47; Start 09/26/19 at 11:30; Stop 09/26/19 at 13:29; Status DC Iohexol (Omnipaque 350 Mg/ml) 90 ml 1X ONCE IV Last administered on 09/26/19at 11:45; Start 09/26/19 at 11:45; Stop 09/26/19 at 11:46; Status DC Info (CONTRAST GIVEN -- Rx MONITORING) 1 each PRN DAILY PRN MC SEE COMMENTS; Start 09/26/19 at 11:45; Stop 09/28/19 at 11:44; Status DC Enoxaparin Sodium (Lovenox Per Pharmacy Prophylaxis Dosing) 1 each PRN DAILY PRN MC SEE COMMENTS; Start 09/26/19 at 14:30; Status Cancel Enoxaparin Sodium (Lovenox 40mg Syringe) 40 mg BID SQ Last administered on 09/28/19at 21:24; Start 09/26/19 at 15:00; Stop 09/29/19 at 11:24; Status DC Benzonatate (Tessalon Perle) 100 mg [id number] PO Last administered on 09/27/19at 21:50; Start 09/26/19 at 21:00; Stop 10/01/19 at 11:49; Status DC Zinc Sulfate (Orazinc) 220 mg DAILY PO Last administered on 09/27/19at 08:16; Start 09/27/19 at 09:00; Stop 10/01/19 at 11:49; Status DC Ascorbic Acid (Vitamin C) 500 mg DAILY PO Last administered on 09/27/19at 08:16; Start 09/27/19 at 09:00; Stop 10/01/19 at 11:49; Status DC Vitamin D (Vitamin D3) 5,000 unit DAILY PO Last administered on 09/27/19at 08:16; Start 09/27/19 at 09:00; Stop 10/01/19 at 11:49; Status DC Vitamin B Complex (Folbic Tablet) 1 tab DAILY PO ; Start 09/27/19 at 09:00; Stop 10/01/19 at 11:49; Status DC Vancomycin HCl (Vanco Per Pharmacy) 1 each PRN DAILY PRN MC SEE COMMENTS Last administered on 09/30/19at 12:47; Start 09/26/19 at 17:30; Stop 10/01/19 at 11:49; Status DC Piperacillin Sod/ Tazobactam Sod (Zosyn Per Pharmacy) 1 each PRN DAILY PRN MC SEE COMMENTS; Start 09/26/19 at 17:30 Sodium Chloride 1,000 ml @ 100 mls/hr Q10H IV Last administered on 09/28/19at 10:52; Start 09/26/19 at 17:30; Stop 09/28/19 at 12:00; Status DC Piperacillin Sod/ Tazobactam Sod 3.375 gm/Sodium Chloride 50 ml @ 100 mls/hr Q6HRS IV Last administered on 10/02/19at 05:00; Start 09/26/19 at 18:00 Vancomycin HCl 1.25 gm/Sodium Chloride 250 ml @ 167 mls/hr Q24H IV Last administered on 09/28/19at 12:20; Start 09/27/19 at 12:00; Stop 09/28/19 at 15:00; Status DC Vancomycin HCl (Vancomycin Trough Level) 1 each 1X ONCE MC Last administered on 09/28/19at 11:30; Start 09/28/19 at 11:30; Stop 09/28/19 at 11:31; Status DC Methylprednisolone Sodium Succinate (SOLU-Medrol 40MG VIAL) 80 mg Q8HRS IV Last administered on 10/02/19at 05:00; Start 09/26/19 at 22:00 Non-Formulary Medication 1 ea/ Sodium Chloride 250 ml @ 500 mls/hr 1X ONCE IV Last administered on 09/26/19at 21:50; Start 09/26/19 at 21:00; Stop 09/26/19 at 21:29; Status DC Non-Formulary Medication 1 ea/ Sodium Chloride 250 ml @ 500 mls/hr Q24H IV Last administered on 09/30/19at 09:01; Start 09/27/19 at 09:00; Stop 09/30/19 at 09:29; Status DC Amino Acids/ Glycerin/ Electrolytes 1,000 ml @ 80 mls/hr [id number] IV Last administered on 09/28/19at 12:21; Start 09/27/19 at 11:00 Insulin Human Lispro (HumaLOG) 0-7 UNITS TIDWMEALS SQ Last administered on 09/29/19at 17:55; Start 09/27/19 at 14:00 Dextrose (Dextrose 50%-Water Syringe) 12.5 gm PRN Q15MIN PRN IV SEE COMMENTS; Start 09/27/19 at 13:30 Dexmedetomidine HCl 400 mcg/ Sodium Chloride 100 ml @ 0 mls/hr CONT PRN IV SEE COMMENTS Last administered on 09/28/19at 09:10; Start 09/28/19 at 07:30 Sodium Chloride 500 ml @ 500 mls/hr 1X PRN PRN IV HYPOTENSION; Start 09/28/19 at 07:15 Atropine Sulfate (ATROPINE 0.5mg SYRINGE) 0.5 mg PRN Q5MIN PRN IV SEE COMMENTS; Start 09/28/19 at 07:15 Ondansetron HCl (Zofran) 4 mg STK-MED ONCE .ROUTE ; Start 09/28/19 at 10:33; Stop 09/28/19 at 10:33; Status DC Dopamine HCl/ Dextrose 250 ml @ 17.175 mls/ hr CONT PRN IV SEE I/O RECORD Last administered on 09/30/19at 10:32; Start 09/28/19 at 11:00 Dopamine HCl/ Dextrose 250 ml @ 17.175 mls/ hr CONT PRN IV SEE I/O RECORD; Start 09/28/19 at 11:00; Status UNV Ringer's Solution 1,000 ml @ 100 mls/hr Q10H IV Last administered on 10/02/19at 07:54; Start 09/28/19 at 13:00 Potassium Chloride/Water 100 ml @ 100 mls/hr Q1H IV Last administered on 09/28/19at 15:31; Start 09/28/19 at 13:00; Stop 09/28/19 at 14:59; Status DC Vancomycin HCl 1.5 gm/Sodium Chloride 500 ml @ 250 mls/hr Q18H IV Last administered on 09/30/19at 15:35; Start 09/29/19 at 02:00; Stop 10/01/19 at 11:49; Status DC Vancomycin HCl (Vancomycin Trough Level) 1 each 1X ONCE MC ; Start 09/30/19 at 13:30; Stop 09/30/19 at 12:36; Status DC Enoxaparin Sodium (Lovenox 80mg Syringe) 80 mg DAILY SQ Last administered on 10/02/19at 07:54; Start 09/29/19 at 12:00 Haloperidol Lactate (Haldol Inj) 2 mg 1X ONCE IVP Last administered on 09/30/19at 10:25; Start 09/30/19 at 10:30; Stop 09/30/19 at 10:31; Status DC Morphine Sulfate (Morphine Sulfate) 2 mg PRN Q1HR PRN IVP DYSPNEA Last administered on 10/02/19at 07:55; Start 10/01/19 at 11:00 Lorazepam (Ativan Inj) 1 mg PRN Q2HRS PRN IVP ANXIETY Last administered on 10/02/19at 06:22; Start 10/01/19 at 11:00 Lorazepam (Ativan Inj) 2 mg STK-MED ONCE .ROUTE ; Start 10/01/19 at 09:57; Stop 10/01/19 at 11:02; Status DC Morphine Sulfate (Morphine Sulfate) 10 mg STK-MED ONCE .ROUTE ; Start 10/01/19 at 10:46; Stop 10/01/19 at 11:02; Status DC Ketorolac Tromethamine (Toradol 15mg Vial) 15 mg PRN Q6HRS PRN IVP MILD PAIN / TEMP > 100.3'F Last administered on 10/01/19at 23:30; Start 10/01/19 at 11:45; Stop 10/06/19 at 11:44 Acetaminophen (Tylenol Supp) 650 mg PRN Q6HRS PRN ME MILD PAIN / TEMP > 100.3'F; Start 10/01/19 at 11:45 Aspirin (Ecotrin) 81 mg DAILYWBKFT PO ; Start 10/01/19 at 17:00 Active Scripts Active Reported Artificial Tears (Polyvinyl Alcohol) 15 Ml Drops 2 Drop EACHEYE QID 20 Days Ibuprofen 400 Mg Tablet 400 Mg PO PRN Q6HRS PRN Tylophen (Acetaminophen) 500 Mg Capsule 500 Mg PO PRN Q6-8HRS Vitals/I & O Vital Sign - Last 24 Hours 10/01/19 10/01/19 10/01/19 10/01/19 09:00 10:00 10:48 11:00 Temp 100.2 100.2 Pulse 90 94 92 Resp 22 22 B/P (MAP) 103/60 (74) 109/55 (73) 105/55 (72) Pulse Ox 62 66 67 O2 Delivery Vapotherm Vapotherm Vapotherm O2 Flow Rate 40.0 40.0 40.0 10/01/19 10/01/19 10/01/19 10/01/19 12:03 12:04 12:16 13:00 Pulse 101 106 B/P (MAP) 127/55 (79) 118/65 (82) Pulse Ox 70 61 31 O2 Delivery Vepotherm Vapotherm Vapotherm O2 Flow Rate 40.0 40.0 40.0 40.0 10/01/19 10/01/19 10/01/19 10/01/19 13:10 13:40 14:00 15:00 Temp 100.2 100.2 Pulse 90 88 Resp 22 B/P (MAP) 100/52 (68) 102/43 (62) Pulse Ox 53 68 68 63 O2 Delivery vasotherm Vapotherm Vapotherm O2 Flow Rate 40.0 40.0 40.0 10/01/19 10/01/19 10/01/19 10/01/19 15:44 15:57 16:19 17:03 Pulse 88 90 B/P (MAP) 124/72 (89) 102/54 (70) Pulse Ox 57 61 64 O2 Delivery Vepotherm Vapotherm Vapotherm O2 Flow Rate 40.0 40.0 40.0 10/01/19 10/01/19 10/01/19 10/01/19 18:00 19:00 19:38 19:42 Temp 100.3 100.3 Pulse 90 89 Resp 22 25 B/P (MAP) 120/56 (77) 104/63 (77) Pulse Ox 62 47 54 48 O2 Delivery vapotherm Vapotherm Vepotherm Nasal Cannula O2 Flow Rate 40.0 40.0 40.0 40.0 10/01/19 10/01/19 10/01/19 10/01/19 20:00 20:00 20:12 21:00 Pulse 86 88 Resp 25 B/P (MAP) 109/83 (92) 111/53 (72) Pulse Ox 51 51 47 O2 Delivery vapotherm Vapotherm vapotherm O2 Flow Rate 40.0 40.0 40.0 40.0 10/01/19 10/01/19 10/02/19 10/02/19 22:00 23:00 00:00 00:00 Temp 100.4 100.4 Pulse 94 92 93 Resp 16 B/P (MAP) 82/60 (67) 143/64 (90) 117/70 (86) Pulse Ox 55 51 46 O2 Delivery vapotherm Vapotherm vapotherm O2 Flow Rate 40.0 40.0 40.0 40.0 10/02/19 10/02/19 10/02/19 10/02/19 01:00 02:00 03:00 03:04 Temp 99.9 99.9 Pulse 98 85 86 Resp 16 B/P (MAP) 101/54 (70) 112/57 (75) 122/65 (84) Pulse Ox 50 45 40 40 O2 Delivery vapotherm vapotherm Vapotherm Vepotherm O2 Flow Rate 40.0 40.0 40.0 40.0 10/02/19 10/02/19 10/02/19 10/02/19 04:00 04:00 05:00 06:00 Pulse 86 95 96 B/P (MAP) 115/65 (82) 140/72 (94) 144/68 (93) Pulse Ox 37 45 34 O2 Delivery vapotherm vapotherm vapotherm O2 Flow Rate 40.0 40.0 40.0 40.0 10/02/19 10/02/19 07:00 07:46 Temp 100.5 100.5 Pulse 96 Resp 22 B/P (MAP) 139/60 (86) Pulse Ox 33 O2 Delivery High Flow Nasal Cannula O2 Flow Rate 40.0 Intake and Output 10/01/19 10/01/19 10/02/19 15:00 23:00 07:00 Intake Total 170 ml 1218 ml Output Total 650 ml 450 ml 550 ml Balance -480 ml 768 ml -550 ml Nutrition Consultation Dietary Evaluation: Recommendations by RD: Dietary education by RD, Increase Calorie Intake, Protein supplementation Comments: Continue w/regular diet and offer Ensure supplements prn Expected Outcomes/Goals: diet advancement - met, new goal established New goal 09/30: nutrition as appropraite per goals of care Malnutrition Findings: Body Fat Depletion (Non Severe: Mild Depletion Weight Status: Overweight Justicifation of Admission Dx: Justifications for Admission: Justification of Admission Dx: Yes Aspiration Pneumonia: Hypoxemia RYANNE SULLIVAN MD Oct 02, 2019 08:53
--- NOTE | 2019-10-02 11:16 | NUR ---
SS following for discharge planning. SS reviewed pt chart and discussed with pt RN. Pt was assessed for inpatient hospice on 10/01/2019, but pt unable to sign consents and pt has no family to assist. Pt on vapotherm. Pt DNR/DNI. Pt is LTC resident from [facility], ; fax [phone]. Pt on PPN and IV Zosyn. Pt COVID19 positive. Possible withdrawal of care being discussed by physicians. SS will continue to follow for discharge planning.
--- NOTE | 2019-10-02 12:32 | PDOC ---
PROGRESS NOTES Chief Complaint Chief Complaint 10/01. 3 visits, mental status has declined hypoxia is profound, prognosis poor pt has refused meds and treatments, has been DNR discussed with RN, Dr. Juarez is in agreement for withdrawl of care as it seems to be patients wishes, COVID-19, pos test 09/19 acute hypoxic respiratory faiulre severe sepsis pneumoniits, broad antibiotics, pneumonia and sepsis, acute renal failure, vasomotor, and acute rhabdomyolysis, admit chronic dementia with acute on chronic encephalopathy severe malnutrition, POA History of Present Illness History of Present Illness DNR, withdraw care pulm following, very helpful breathing better after low dose Haldol, cont current 2 evals, sometimes confused, not agitated, no event Vitals Vitals Vital Signs Date Time Temp Pulse Resp B/P (MAP) Pulse Ox O2 Delivery O2 Flow Rate FiO2 10/02/19 12:09 97 123/58 (79) 31 High Flow Nasal Cannula 40.0 10/02/19 09:00 38 10/02/19 07:46 100.5 100.5 Physical Exam General: Alert, mild distress Heart: Regular rate Abdomen: Soft Extremities: Other (1+ pitting) Skin: No rashes, No breakdown Assessment and Plan Assessmemt and Plan Problems Medical Problems: (1) Acute respiratory failure with hypoxia Status: Acute (2) COVID-19 Status: Acute (3) HCAP (healthcare-associated pneumonia) Status: Acute (4) Renal insufficiency Status: Acute (5) Severe sepsis Status: Acute Comment Review of Relevant I have reviewed the following items cuco (where applicable) has been applied. Labs Laboratory Tests Test 09/30/19 16:46 10/01/19 08:07 Glucose (Fingerstick) 172 mg/dL (70-99) 159 mg/dL (70-99) Microbiology 09/26/19 Blood Culture - Final, Complete NO GROWTH AFTER 5 DAYS Medications Current Medications Piperacillin Sod/ Tazobactam Sod 4.5 gm/Sodium Chloride 100 ml @ 200 mls/hr 1X ONCE IV Last administered on 09/26/19at 11:03; Start 09/26/19 at 11:00; Stop 09/26/19 at 11:29; Status DC Vancomycin HCl (Vanco Per Pharmacy) 1 each 1X ONCE MC Last administered on 09/26/19at 11:00; Start 09/26/19 at 11:00; Stop 09/26/19 at 15:59; Status DC Sodium Chloride 1,000 ml @ 1,000 mls/hr 1X ONCE IV Last administered on 09/26/19at 11:02; Start 09/26/19 at 11:00; Stop 09/26/19 at 11:59; Status DC Sodium Chloride 1,000 ml @ 1,000 mls/hr 1X ONCE IV Last administered on 09/26/19at 11:03; Start 09/26/19 at 11:00; Stop 09/26/19 at 11:59; Status DC Sterile Water (WATER for RESP) 1,000 ml CONT PRN INH VIA VAPOTHERM DEVICE Last administered on 10/01/19at 18:06; Start 09/26/19 at 11:00 Vancomycin HCl 2 gm/Sodium Chloride 500 ml @ 250 mls/hr 1X ONCE IV Last administered on 09/26/19at 11:47; Start 09/26/19 at 11:30; Stop 09/26/19 at 13:29; Status DC Iohexol (Omnipaque 350 Mg/ml) 90 ml 1X ONCE IV Last administered on 09/26/19at 11:45; Start 09/26/19 at 11:45; Stop 09/26/19 at 11:46; Status DC Info (CONTRAST GIVEN -- Rx MONITORING) 1 each PRN DAILY PRN MC SEE COMMENTS; Start 09/26/19 at 11:45; Stop 09/28/19 at 11:44; Status DC Enoxaparin Sodium (Lovenox Per Pharmacy Prophylaxis Dosing) 1 each PRN DAILY PRN MC SEE COMMENTS; Start 09/26/19 at 14:30; Status Cancel Enoxaparin Sodium (Lovenox 40mg Syringe) 40 mg BID SQ Last administered on 09/28/19at 21:24; Start 09/26/19 at 15:00; Stop 09/29/19 at 11:24; Status DC Benzonatate (Tessalon Perle) 100 mg [id number] PO Last administered on 09/27/19at 21:50; Start 09/26/19 at 21:00; Stop 10/01/19 at 11:49; Status DC Zinc Sulfate (Orazinc) 220 mg DAILY PO Last administered on 09/27/19at 08:16; Start 09/27/19 at 09:00; Stop 10/01/19 at 11:49; Status DC Ascorbic Acid (Vitamin C) 500 mg DAILY PO Last administered on 09/27/19at 08:16; Start 09/27/19 at 09:00; Stop 10/01/19 at 11:49; Status DC Vitamin D (Vitamin D3) 5,000 unit DAILY PO Last administered on 09/27/19at 08:16; Start 09/27/19 at 09:00; Stop 10/01/19 at 11:49; Status DC Vitamin B Complex (Folbic Tablet) 1 tab DAILY PO ; Start 09/27/19 at 09:00; Stop 10/01/19 at 11:49; Status DC Vancomycin HCl (Vanco Per Pharmacy) 1 each PRN DAILY PRN MC SEE COMMENTS Last administered on 09/30/19at 12:47; Start 09/26/19 at 17:30; Stop 10/01/19 at 11:49; Status DC Piperacillin Sod/ Tazobactam Sod (Zosyn Per Pharmacy) 1 each PRN DAILY PRN MC SEE COMMENTS; Start 09/26/19 at 17:30 Sodium Chloride 1,000 ml @ 100 mls/hr Q10H IV Last administered on 09/28/19at 10:52; Start 09/26/19 at 17:30; Stop 09/28/19 at 12:00; Status DC Piperacillin Sod/ Tazobactam Sod 3.375 gm/Sodium Chloride 50 ml @ 100 mls/hr Q6HRS IV Last administered on 10/02/19at 11:32; Start 09/26/19 at 18:00; Stop 10/02/19 at 12:29; Status DC Vancomycin HCl 1.25 gm/Sodium Chloride 250 ml @ 167 mls/hr Q24H IV Last administered on 09/28/19at 12:20; Start 09/27/19 at 12:00; Stop 09/28/19 at 15:00; Status DC Vancomycin HCl (Vancomycin Trough Level) 1 each 1X ONCE MC Last administered on 09/28/19at 11:30; Start 09/28/19 at 11:30; Stop 09/28/19 at 11:31; Status DC Methylprednisolone Sodium Succinate (SOLU-Medrol 40MG VIAL) 80 mg Q8HRS IV Last administered on 10/02/19at 05:00; Start 09/26/19 at 22:00 Non-Formulary Medication 1 ea/ Sodium Chloride 250 ml @ 500 mls/hr 1X ONCE IV Last administered on 09/26/19at 21:50; Start 09/26/19 at 21:00; Stop 09/26/19 at 21:29; Status DC Non-Formulary Medication 1 ea/ Sodium Chloride 250 ml @ 500 mls/hr Q24H IV Last administered on 09/30/19at 09:01; Start 09/27/19 at 09:00; Stop 09/30/19 at 09:29; Status DC Amino Acids/ Glycerin/ Electrolytes 1,000 ml @ 80 mls/hr [id number] IV Last administered on 09/28/19at 12:21; Start 09/27/19 at 11:00; Stop 10/02/19 at 12:29; Status DC Insulin Human Lispro (HumaLOG) 0-7 UNITS TIDWMEALS SQ Last administered on 09/29/19at 17:55; Start 09/27/19 at 14:00 Dextrose (Dextrose 50%-Water Syringe) 12.5 gm PRN Q15MIN PRN IV SEE COMMENTS; Start 09/27/19 at 13:30 Dexmedetomidine HCl 400 mcg/ Sodium Chloride 100 ml @ 0 mls/hr CONT PRN IV SEE COMMENTS Last administered on 09/28/19at 09:10; Start 09/28/19 at 07:30 Sodium Chloride 500 ml @ 500 mls/hr 1X PRN PRN IV HYPOTENSION; Start 09/28/19 at 07:15 Atropine Sulfate (ATROPINE 0.5mg SYRINGE) 0.5 mg PRN Q5MIN PRN IV SEE COMMENTS; Start 09/28/19 at 07:15 Ondansetron HCl (Zofran) 4 mg STK-MED ONCE .ROUTE ; Start 09/28/19 at 10:33; Stop 09/28/19 at 10:33; Status DC Dopamine HCl/ Dextrose 250 ml @ 17.175 mls/ hr CONT PRN IV SEE I/O RECORD Last administered on 09/30/19at 10:32; Start 09/28/19 at 11:00 Dopamine HCl/ Dextrose 250 ml @ 17.175 mls/ hr CONT PRN IV SEE I/O RECORD; S tart 09/28/19 at 11:00; Status UNV Ringer's Solution 1,000 ml @ 100 mls/hr Q10H IV Last administered on 10/02/19 07:54; Start 09/28/19 at 13:00 Potassium Chloride/Water 100 ml @ 100 mls/hr Q1H IV Last administered on 09/28/19 15:31; Start 09/28/19 at 13:00; Stop 09/28/19 at 14:59; Status DC Vancomycin HCl 1.5 gm/Sodium Chloride 500 ml @ 250 mls/hr Q18H IV Last administered on 09/30/19at 15:35; Start 09/29/19 at 02:00; Stop 10/01/19 at 11:49; Status DC Vancomycin HCl (Vancomycin Trough Level) 1 each 1X ONCE MC ; Start 09/30/19 at 13:30; Stop 09/30/19 at 12:36; Status DC Enoxaparin Sodium (Lovenox 80mg Syringe) 80 mg DAILY SQ Last administered on 10/02/19at 07:54; Start 09/29/19 at 12:00 Haloperidol Lactate (Haldol Inj) 2 mg 1X ONCE IVP Last administered on 09/30/19at 10:25; Start 09/30/19 at 10:30; Stop 09/30/19 at 10:31; Status DC Morphine Sulfate (Morphine Sulfate) 2 mg PRN Q1HR PRN IVP DYSPNEA Last administered on 10/02/19at 11:36; Start 10/01/19 at 11:00 Lorazepam (Ativan Inj) 1 mg PRN Q2HRS PRN IVP ANXIETY Last administered on 10/02/19at 06:22; Start 10/01/19 at 11:00 Lorazepam (Ativan Inj) 2 mg STK-MED ONCE .ROUTE ; Start 10/01/19 at 09:57; Stop 10/01/19 at 11:02; Status DC Morphine Sulfate (Morphine Sulfate) 10 mg STK-MED ONCE .ROUTE ; Start 10/01/19 at 10:46; Stop 10/01/19 at 11:02; Status DC Ketorolac Tromethamine (Toradol 15mg Vial) 15 mg PRN Q6HRS PRN IVP MILD PAIN / TEMP > 100.3'F Last administered on 10/01/19at 23:30; Start 10/01/19 at 11:45; Stop 10/06/19 at 11:44 Acetaminophen (Tylenol Supp) 650 mg PRN Q6HRS PRN [place] MILD PAIN / TEMP > 100.3'F; Start 10/01/19 at 11:45 Aspirin (Ecotrin) 81 mg DAILYWBKFT PO ; Start 10/01/19 at 17:00 Lactobacillus Rhamnosus (Culturelle) 1 cap BID PO ; Start 10/02/19 at 21:00 Active Scripts Active Reported Artificial Tears (Polyvinyl Alcohol) 15 Ml Drops 2 Drop EACHEYE QID 20 Days Ibuprofen 400 Mg Tablet 400 Mg PO PRN Q6HRS PRN Tylophen (Acetaminophen) 500 Mg Capsule 500 Mg PO PRN Q6-8HRS Vitals/I & O Vital Sign - Last 24 Hours 10/01/19 10/01/19 10/01/19 10/01/19 13:00 13:10 13:40 14:00 Pulse 106 90 B/P (MAP) 118/65 (82) 100/52 (68) Pulse Ox 31 53 68 68 O2 Delivery Vapotherm vasotherm Vapotherm O2 Flow Rate 40.0 40.0 40.0 10/01/19 10/01/19 10/01/19 10/01/19 15:00 15:44 15:57 16:19 Temp 100.2 100.2 Pulse 88 88 Resp 22 B/P (MAP) 102/43 (62) 124/72 (89) Pulse Ox 63 57 61 O2 Delivery Vapotherm Vepotherm Vapotherm O2 Flow Rate 40.0 40.0 40.0 10/01/19 10/01/19 10/01/19 10/01/19 17:03 18:00 19:00 19:38 Temp 100.3 100.3 Pulse 90 90 89 Resp 22 B/P (MAP) 102/54 (70) 120/56 (77) 104/63 (77) Pulse Ox 64 62 47 54 O2 Delivery Vapotherm vapotherm Vapotherm Vepotherm O2 Flow Rate 40.0 40.0 40.0 40.0 10/01/19 10/01/19 10/01/19 10/01/19 19:42 20:00 20:00 20:12 Pulse 86 Resp 25 25 B/P (MAP) 109/83 (92) Pulse Ox 48 51 51 O2 Delivery Nasal Cannula vapotherm Vapotherm O2 Flow Rate 40.0 40.0 40.0 40.0 10/01/19 10/01/19 10/01/19 10/02/19 21:00 22:00 23:00 00:00 Temp 100.4 100.4 Pulse 88 94 92 Resp 16 B/P (MAP) 111/53 (72) 82/60 (67) 143/64 (90) Pulse Ox 47 55 51 O2 Delivery vapotherm vapotherm Vapotherm O2 Flow Rate 40.0 40.0 40.0 40.0 10/02/19 10/02/19 10/02/19 10/02/19 00:00 01:00 02:00 03:00 Temp 99.9 99.9 Pulse 93 98 85 86 Resp 16 B/P (MAP) 117/70 (86) 101/54 (70) 112/57 (75) 122/65 (84) Pulse Ox 46 50 45 40 O2 Delivery vapotherm vapotherm vapotherm Vapotherm O2 Flow Rate 40.0 40.0 40.0 40.0 10/02/19 10/02/19 10/02/19 10/02/19 03:04 04:00 04:00 05:00 Pulse 86 95 B/P (MAP) 115/65 (82) 140/72 (94) Pulse Ox 40 37 45 O2 Delivery Vepotherm vapotherm vapotherm O2 Flow Rate 40.0 40.0 40.0 40.0 10/02/19 10/02/19 10/02/19 10/02/19 06:00 07:00 07:46 08:00 Temp 100.5 100.5 Pulse 96 96 Resp 22 B/P (MAP) 144/68 (93) 139/60 (86) Pulse Ox 34 33 O2 Delivery vapotherm High Flow Nasal Cannula Nasal Cannula O2 Flow Rate 40.0 40.0 40.0 10/02/19 10/02/19 10/02/19 10/02/19 09:00 09:03 10:00 11:00 Pulse 94 96 108 Resp 38 B/P (MAP) 132/68 (89) 135/75 (95) 151/62 (91) Pulse Ox 32 32 39 O2 Delivery High Flow Nasal Cannula Vepotherm High Flow Nasal Cannula High Flow Nasal Cannula O2 Flow Rate 40.0 40.0 40.0 40.0 10/02/19 12:09 Pulse 97 B/P (MAP) 123/58 (79) Pulse Ox 31 O2 Delivery High Flow Nasal Cannula O2 Flow Rate 40.0 Intake and Output 10/01/19 10/01/19 10/02/19 15:00 23:00 07:00 Intake Total 170 ml 1218 ml Output Total 650 ml 450 ml 550 ml Balance -480 ml 768 ml -550 ml Nutrition Consultation Dietary Evaluation: Recommendations by RD: Dietary education by RD, Increase Calorie Intake, Protein supplementation Comments: Continue w/regular diet and offer Ensure supplements prn Expected Outcomes/Goals: diet advancement - met, new goal established New goal 09/30: nutrition as appropraite per goals of care Malnutrition Findings: Body Fat Depletion (Non Severe: Mild Depletion Weight Status: Overweight Justicifation of Admission Dx: Justifications for Admission: Justification of Admission Dx: Yes Aspiration Pneumonia: Hypoxemia RYANNE SULLIVAN MD Oct 02, 2019 12:32
--- NOTE | 2019-10-02 13:13 | NUR ---
per orders for withdraw of care; veraflow discontinued. pt placed on 5L NC for comfort. ativan and morphine given at this time as well. pt still tachypnic w/ O2 sats 30-40.
--- NOTE | 2019-10-02 14:45 | PDOC ---
CARDIO Progress Notes Date and Time Date of Service 10/02/19 Time of Evaluation 1133 Subjective Subjective: Other (SOA) Vitals Vitals Vital Signs Date Time Temp Pulse Resp B/P (MAP) Pulse Ox O2 Delivery O2 Flow Rate FiO2 10/02/19 14:00 78 28 51/29 (36) 57 Nasal Cannula 5.0 10/02/19 07:46 100.5 100.5 Weight Weight [ ] Input and Output Intake and Output Intake and Output 10/02/19 07:00 Intake Total 1388 ml Output Total 1650 ml Balance -262 ml Intake Oral 120 ml IV Total 1268 ml Output Urine Total 1650 ml # Bowel Movements 1 Microbiology Micro Microbiology 09/26/19 Blood Culture - Final, Complete NO GROWTH AFTER 5 DAYS Physical Exam HEENT: Neck Supple W Full Motion Chest: Symmetric LUNGS: Other Heart: S1S2, RRR Abdomen: Soft N/T Extremities: Other (1+ bilateral LE edema) Neurology: confused Assessment Assessment 1. Acute hypoxic respiratory failure with COVID PNA. s/p convalescent serum and Remdecivir. DNR/DNI. On vapotherm. Prognosis poor. As per pulm 2. Sepsis and hypotension: Continue antibiotics per ID team. Off pressor support. 3. PAFIB, probably precipitated by respiratory failure and sepsis. Maintaining SR. 4. Metabolic encephalopathy, improving 5. MARIANA Justicifation of Admission Dx: Justifications for Admission: Justification of Admission Dx: Yes Aspiration Pneumonia: Hypoxemia ZO YEPEZ APRN Oct 02, 2019 14:45
--- NOTE | 2019-10-02 15:00 | NUR ---
pt pronounced at 1442 by Dorie, RN, Taylor, RN. Dr. 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 MTN called.
[2019-10-02] MEDS ORDERED: LACTOBACILLUS RHAMNOSUS GG 1 CAPSULE. PO SCH (21:00)
--- NOTE | 2019-10-24 11:54 | PDOC3 ---
Discharge Summary Visit Information Date of Admission: Sep 26, 2019 Date of Discharge: Oct 02, 2019 Final Diagnosis COVID-19, pos test 09/19 acute hypoxic respiratory failure severe sepsis pneumonia, pneumonitis, acute renal failure, vasomotor, and acute rhabdomyolysis, chronic dementia with acute on chronic encephalopathy severe malnutrition, POA Problems Medical Problems: (1) Acute respiratory failure with hypoxia Status: Acute (2) COVID-19 Status: Acute (3) HCAP (healthcare-associated pneumonia) Status: Acute (4) Renal insufficiency Status: Acute (5) Severe sepsis Status: Acute Brief Hospital Course Allergies Allergies Coded Allergies Type Severity Reaction Last Updated Verified No Known Drug Allergies 09/26/19 No Brief Hospital Course Mr. Raines is a 79 old male, lives in a [facility], some dementia, baseline weakness admit with covid-19, pneumonia and hypoxia, hypoxia and resp failure pt has refused meds and treatments, has been DNR pt on 10/01 Discharge Information Condition at Discharge: / Scheduled Acetaminophen (Tylophen) 500 Mg Capsule, 500 MG PO PRN Q6-8HRS for pain, (Reported) Entered as Reported by: CHANTELLE SILVA on 09/26/191553 Last Action: New Order on 09/26/191553 by CHANTELLE SILVA Polyvinyl Alcohol (Artificial Tears) 15 Ml Drops, 2 DROP EACHEYE QID for dry eyes for 20 Days, #15 Ref 0 (Reported) Entered as Reported by: CHANTELLE SILVA on 09/26/191554 Last Action: New Order on 09/26/191554 by CHANTELLE SILVA Scheduled PRN Ibuprofen (Ibuprofen) 400 Mg Tablet, 400 MG PO PRN Q6HRS PRN for INFLAMMATION, (Reported) Entered as Reported by: CHANTELLE SILVA on 09/26/191553 Last Action: New Order on 09/26/191553 by CHANTELLE SILVA Patient Instructions Patient Instructions > 30 min that day 3 visits the day he , Justicifation of Admission Dx: Justifications for Admission: Justification of Admission Dx: Yes Aspiration Pneumonia: Hypoxemia RYANNE SULLIVAN MD Oct 24, 2019 11:54
== END 2019-10-02 14:42 | disposition expired | DRG 871 ==
LOC: ER 10:37 → 1 WEST ICU 14:24
PROVIDERS: ADMIT Internal Medicine; ATTEND Internal Medicine
PROC: 30233K1 Transfusion of Nonautologous Frozen Plasma into Peripheral Vein, Percutaneous Approach (ICD-10-PCS; principal; 2019-09-27)
PROC: 5A09357 Assistance with Respiratory Ventilation, Less than 24 Consecutive Hours, Continuous Positive Airway Pressure (ICD-10-PCS; 2019-09-27)
PROC: 5A09357 Assistance with Respiratory Ventilation, Less than 24 Consecutive Hours, Continuous Positive Airway Pressure (ICD-10-PCS; 2019-09-28)
PROC: 5A09357 Assistance with Respiratory Ventilation, Less than 24 Consecutive Hours, Continuous Positive Airway Pressure (ICD-10-PCS; 2019-09-30)
DX: A41.89 Other specified sepsis (principal); U07.1 COVID-19; E43 Unspecified severe protein-calorie malnutrition; G92 Toxic encephalopathy; J96.01 Acute respiratory failure with hypoxia; J12.89 Other viral pneumonia; M62.82 Rhabdomyolysis; N17.9 Acute kidney failure, unspecified; F03.90 Unspecified dementia, unspecified severity, without behavioral disturbance, psychotic disturbance, mood disturbance, and anxiety; I10 Essential (primary) hypertension; I48.0 Paroxysmal atrial fibrillation; K44.9 Diaphragmatic hernia without obstruction or gangrene; R13.10 Dysphagia, unspecified; R65.20 Severe sepsis without septic shock; Y95 Nosocomial condition; Z51.5 Encounter for palliative care; Z66 Do not resuscitate; Z82.0 Family history of epilepsy and other diseases of the nervous system; F41.9 Anxiety disorder, unspecified; K21.9 Gastro-esophageal reflux disease without esophagitis; Z68.30 Body mass index [BMI] 30.0-30.9, adult; Z79.899 Other long term (current) drug therapy
CPT/HCPCS: 36415; 36600; 71045; 71275; 80053; 80202; 81001; 82550; 82805; 82962; 83605; 83735; 84484; 85007; 85025; 85610; 85730; 86850; 86900; 86901; 86927; 87040; 93005; 94660; 94760; 96361; 96365; 96366; 96367; 96372; 99285; J1265; J1630; J1650; J1815; J1885; J2060; J2270; J2543; J2920; J3370; J3480; J3490; J7030; J7040; J7050; J7120; Q9967; G0378; P9017; U0003-CS